=== PATIENT | female | born 1940 | race Caucasian/White ===

== ENCOUNTER 2017-06-15 07:00 | Inpatient (IN) | payer OTHER, MEDICARE ==
[2017-06-11 13:11] VITALS: BMI 23.8
[2017-06-15] MEDS ORDERED: DESFLURANE GAS 240 ML BOTTLE IH ONE (07:27)
[2017-06-15] MEDS ORDERED: BUPIVACAINE HCL/PF 0.5% (5MG/ML) 10 ML VIAL ONE (07:39)
[2017-06-15] MEDS ORDERED: LIDOCAINE HCL 1%, 10 MG/ML (20ML VIAL) ONE (07:39)
[2017-06-15] MEDS ORDERED: LIDOCAINE 1%/EPI 1:100000 (20 ML MULTI DOSE VIAL) ONE ×2 (08:18→08:25)
[2017-06-15] MEDS ORDERED: ROCURONIUM BROMIDE 50 MG/5 ML VIAL ONE ×2 (08:24→09:55)
[2017-06-15] MEDS ORDERED: PROPOFOL 20 ML ONE (08:24)
[2017-06-15] MEDS ORDERED: LIDOCAINE HCL/PF 2% SDV 5ML VIAL ONE (08:24)
[2017-06-15] MEDS ORDERED: BUPIVACAINE HCL/PF 0.25% (2.5MG/ML) 10 ML VIAL ONE ×2 (08:25→08:36)
[2017-06-15] MEDS ORDERED: MIDAZOLAM HCL 2 MG/2 ML SINGLE DOSE VIAL ONE (08:29)
[2017-06-15] MEDS ORDERED: ceFAZolin SODIUM 1 GM VIAL IVPB ONE (09:34)
[2017-06-15] MEDS ORDERED: HEPARIN NA (PORCINE) 5,000 UNITS/ML 1ML VIAL ONE (09:48)
[2017-06-15] MEDS ORDERED: HEPARIN NA (PORCINE) 5,000 UNITS/ML 1ML VIAL SQ ONE (09:51)
[2017-06-15] MEDS ORDERED: LIDOCAINE 1%/EPI 1:100000 (50 ML MULTI DOSE VIAL) INF ONE (09:53)
[2017-06-15] MEDS ORDERED: BUPIVACAINE HCL/PF 0.25% (2.5MG/ML) 10 ML VIAL IJ ONE (09:53)
[2017-06-15] MEDS ORDERED: ONDANSETRON 4 MG/2 ML VIAL IVPUSH PRN ×2 (10:11→14:01)
[2017-06-15] MEDS ORDERED: PROMETHAZINE HCL 25 MG/1 ML VIAL IVPUSH PRN (10:11)
[2017-06-15] MEDS ORDERED: LACTATED RINGERS SOLUTION 1,000 ML IV SCH ×2 (10:15→14:15)
[2017-06-15] MEDS ORDERED: NEOSTIGMINE METHYLSULFATE 0.5 MG/ML - 10 ML MDV ONE (11:30)
[2017-06-15] MEDS ORDERED: GLYCOPYRROLATE 0.2 MG/1 ML VIAL ONE ×2 (11:30)
[2017-06-15] MEDS ORDERED: ePHEDrine SULFATE 50 MG/1 ML AMPULE ONE (11:45)
--- NOTE | 2017-06-15 11:57 | OP ---
Operative Note - Note: Operative Date: 06/15/17 Pre-Operative Diagnosis: Lung nodule Operation: Bronchoscopy, VATS, extensive pneumolysis, right upper lobe wedge, mediastinal lymph node sampling Findings: Bronchoscopy: no obvious airway lesions; VATS: extensive adhesions of all lobes to chest wall and mediastinum Surgeon: Sly Chambers Plate Hanger: Edwar Nguyen (Cosurgeon) Anesthesiologist/AMPOULE EXAMINER: Teo Deras Anesthesia: General Specimens Removed: right upper lobe, right upper lobe margin, right level 4 lymph node Estimated Blood Loss (mls): 100 Drains & Tubes with Location: right chest tube
[2017-06-15] MEDS ORDERED: SENNOSIDES 8.6MG TABLET (FP) PO PRN (12:01)
[2017-06-15] MEDS: IPRATROPIUM BR 0.02% 0.5 MG/2.5 ML VIAL.NEB. NEB SCH ×5 (12:10→21:50)
[2017-06-15] MEDS ORDERED: ELECTROLYTE-148 SOLN 1,000 ML IV SCH (12:15)
[2017-06-15] MEDS ORDERED: FENTANYL/BUPIVACAINE/NS/PF - PCEA - 50 ML DISP.SYRIN EP ONE (12:48)
[2017-06-15] MEDS: FENTANYL/BUPIVACAINE/NS/PF - PCEA - 50 ML DISP.SYRIN EP SCH ×3 (13:00→22:39)
[2017-06-15 13:40] LABS: HEMATOCRIT 35.7 % (32.4-45.2); MCH 33.3 pg (25.7-33.7); MCHC 33.6 g/dl (32.0-36.0); MEAN CELL VOLUME 99.1 fl (80-96); MEAN PLT VOLUME 8.9 fl (7.5-11.1); PLATELET COUNT 148 K/MM3 (134-434); RDW 16.9 % (11.6-15.6); WHITE BLOOD COUNT 11.8 K/mm3 (4.0-10.0)
[2017-06-15 13:53] LABS: INR 1.06 (0.82-1.09)
[2017-06-15 13:55] LABS: ACTIVATED PTT 27.1 SECONDS (26.9-34.4)
[2017-06-15] MEDS ORDERED: oxyCODONE HCL 5 MG TABLET PO PRN (14:01)
[2017-06-15] MEDS ORDERED: PROMETHAZINE HCL 25 MG/1 ML VIAL IVPB PRN (14:01)
[2017-06-15 14:09] LABS: ANION GAP 10 (8-16); BLOOD UREA NITROGEN 22 mg/dL (7-18); CALCIUM 8.5 mg/dL (8.5-10.1); CHLORIDE 106 mmol/L (98-107); CO2 26 mmol/L (21-32); CREATININE 0.6 mg/dL (0.55-1.02); GLUCOSE,RANDOM 116 mg/dL (74-106); POTASSIUM 3.7 mmol/L (3.5-5.1); SODIUM 142 mmol/L (136-145)
--- NOTE | 2017-06-15 15:29 | HP ---
CHIEF COMPLAINT: Procedure done 06/15/2017: bronchoscopy, VATS with extensive pneumolysis, right upper lobe wedge, mediastinal lymph node sampling PCP: Dr. Chambers, thoracic surgery HISTORY OF PRESENT ILLNESS: Patient is a 77 year old female with a significant past medical history of autoimmune thyroiiditis, osteoarthritis, essential (primary) hypertension, rheumatoid arthritis and radha danlos syndrome. Patient is s/p bronchoscopy, VATS with extensive pneumolysis, right upper lobe wedge, mediastinal lymph node sampling today with Dr. Chambers. Patient is being monitored in the ICU post-op. ER course was notable for: (1) Chest tube with 200cc sero sang drainage (2) s/p bronchoscopy, VATS with RUL wedge (3) chest xray: small right apical pneumothorax, right chest tube with tip projecting over the apex. Right upper lung surgial suture with solid nodular opacity. Recent Travel: PAST MEDICAL HISTORY: autoimmune thyroiiditis, osteoarthritis, essential ( primary) hypertension and rheumatoid arthritis. PAST SURGICAL HISTORY: bronchoscopy, VATS with extensive pneumolysis, right upper lobe wedge, mediastinal lymph node sampling Social History: Smoking: former smoker Alcohol: denies Drugs: denies Family History: Allergies codeine Allergy (Verified 06/15/17 07:34) Rash seasonal Allergy (Uncoded 06/15/17 07:34) HOME MEDICATIONS: Home Medications Medication Instructions Recorded Folic Acid 1 mg PO DAILY 04/03/15 Levothyroxine [Synthroid -] 0.125 mcg PO DAILY 04/03/15 Methotrexate Sodium [Methotrexate] 22.5 mg PO WEEKLY 04/03/15 Naproxen Sodium [Naproxen Sodium 500 mg PO PRN PRN 04/03/15 ER] Sulfasalazine [Azulfidine] 1,000 mg PO BID 04/03/15 Amitriptyline HCl 25 mg PO PRN PRN 06/11/17 Lisinopril/Hydrochlorothiazide 1 each PO DAILY 06/11/17 [Lisinopril-Hctz 20-12.5 mg Tab] Multivitamin [One Daily] 1 each PO DAILY 06/11/17 PHYSICAL EXAMINATION Vital Signs - 24 hr 06/15/17 06/15/17 06/15/17 07:31 07:32 12:16 Temperature 97.8 F Pulse Rate 78 77 Respiratory 20 17 Rate Blood Pressure 142/63 136/59 O2 Sat by Pulse 93 L 100 Oximetry (%) GENERAL: Awake, alert, and fully oriented, in no acute distress. HEAD: Normal with no signs of trauma. EYES: Pupils equal, round and reactive to light, extraocular movements intact, sclera anicteric, conjunctiva clear. No lid lag. EARS, NOSE, THROAT: Ears normal, nares patent, oropharynx clear without exudates. Moist mucous membranes. NECK: Normal range of motion, supple without lymphadenopathy, JVD, or masses. LUNGS: anterior breath sounds clear to auscultation, right pig tail with chest tube s/p VATS procedure HEART: Regular rate and rhythm on panel monitor ABDOMEN: Soft, nontender, not distended, normoactive bowel sounds, MUSCULOSKELETAL: Normal range of motion at all joints. No bony deformities or tenderness. UPPER EXTREMITIES: No peripheral edema. LOWER EXTREMITIES: No peripheral edema. NEUROLOGICAL: Normal speech. Gait not observed PSYCHIATRIC: Cooperative. Good eye contact. Appropriate mood and affect. SKIN: Right pig tail to chest tube s/p VATS procedure Laboratory Results - last 24 hr 06/15/17 06/15/17 06/15/17 07:14 13:15 13:15 WBC 11.8 H D RBC 3.60 Hgb 12.0 Hct 35.7 MCV 99.1 H MCH 33.3 MCHC 33.6 RDW 16.9 H Plt Count 148 MPV 8.9 PT with INR 12.00 H INR 1.06 PTT (Actin FS) 27.1 Sodium Potassium Chloride Carbon Dioxide Anion Gap BUN Creatinine Random Glucose Calcium Blood Type O POSITIVE Antibody Screen Negative 06/15/17 13:15 WBC RBC Hgb Hct MCV MCH MCHC RDW Plt Count MPV PT with INR INR PTT (Actin FS) Sodium 142 Potassium 3.7 Chloride 106 Carbon Dioxide 26 Anion Gap 10 BUN 22 H Creatinine 0.6 Random Glucose 116 H Calcium 8.5 Blood Type Antibody Screen ASSESSMENT/PLAN: Patient is a 77 year old female with a significant past medical history of autoimmune thyroiiditis, osteoarthritis, essential (primary) hypertension, rheumatoid arthritis, radha danlos syndrome, former smoker. Patient is s/p bronchoscopy, VATS with extensive pneumolysis, right upper lobe wedge, mediastinal lymph node sampling today with Dr. Chambers. Patient is being monitored in the ICU post-op. Pulmonary: s/p bronchoscopy/VATS on 06/15/2017 Extensive adhesions lysed to maximize lung exapnsion Right upper lobe wedge Monitor out put on chest tube Monitor respiratory status Allbuterol prn On supplemental oxygen @ 2-3 liters Cardiology Hypertension, chronic On Lisinopril PO, on hold since NPO Cardiac monitoring Endocrine Rheumatoid arthritis On Methotraxtate Hypothyroidism On Syntrhoid daily to be converted to IV until swallow eval Vocal cord paralysis For epeech/ swallow evaluation NPO F.E.N. Fluids: NS @ 42cc/hr Electrolytes: monitor with a.m labs Nutrition: NPO pending swallow eval Prophylaxis: DVT: SCDs GI: Pepcid Disposition: full code. Visit type - Emergency Visit Emergency Visit: No - New Patient This patient is new to me today: Yes Date on this admission: 06/16/17 - Critical Care Critical Care patient: Yes Total Critical Care Time (in minutes): 60 Critical Care Statement: The care of this patient involved high complexity decision making to prevent further life threatening deterioration of the patient 's condition and/or to evaluate & treat vital organ system(s) failure or risk of failure. Hospitalist Screening - Colonoscopy Questionnaire Colonoscopy Questionnaire: Colonoscopy Questionnaire - Patient: 50 - 75 years old and never had a screening colonoscopy: Unknown History of colon or rectal polyps, or CA: Unknown History of IBD, Crohn's disease or UC: Unknown History of abdominal radiation therapy as a child: Unknown - Relative: 1 with colon or rectal CA, or polyps at age 60 or younger: Unknown Colon or rectal CA diagnosed at age 45 or younger: Unknown Multiple relatives with colon or rectal CA: Unknown - Outcome: Screening Result: Negative Screen
--- NOTE | 2017-06-15 15:52 | OPR ---
Patient Name: Loretta Rosa MR#: [id number] Procedure Date: 06/15/17 Preoperative Diagnosis: Lung nodule Postoperative Diagnosis: Lung cancer. Procedure: 1. Flexible Bronchoscopy; 2. Right thoracoscopy, pneumolysis, wedge resection; 3. Mediastinal lymph node sampling; Indication: Lung cancer; Surgeon(s): Sly Chambers MD Cosurgeon: Edwar Nguyen MD Cafe Lead Surgeon: Patient Name: Loretta Rosa MR#: [id number] Procedure Date: 06/15/17 Preoperative Diagnosis: Lung nodule Postoperative Diagnosis: Lung cancer. Procedure: 1. Flexible Bronchoscopy; 2. Right thoracoscopy, pneumolysis, wedge resection; 3. Mediastinal lymph node sampling; Indication: Lung cancer; Surgeon(s): Sly Chambers MD Cosurgeon: Edwar Nguyen MD Cafe Lead Surgeon: Anesthesia: General endotracheal with double-lumen tube; Findings: Bronchoscopy: small airway; difficult to place double-lumen in left main but accomplished; no obvious airway lesions. Thoracoscopy: significant adhesions from all lobes to mediastinum and chest wall and diaphragm; frozen section consistent with [id number] lung cancer; Specimens Sent: 1. RUL wedge 2. RUL wedge final margin Complications: none Drains / Tubes / Catheters: na Hardware / Implants: na Blood / Fluid Losses: 100cc Post-Operative Condition: Stable. Indications: This patient is a 77 year-old female forer smoker with a PET-avid right upper lobe nodule referred from Dr. Santiago for resection. Of note, she also had a newly diagnosed left vocal cord paralysis of unknown etiology. Risks , benefits, and alternatives of a lung resection were discussed with the patient. All questions were addressed and answered and she agreed to surgery. Details of Procedure: The patient was brought into the operating room. She was placed supine on the table, sedated, and intubated with a double-lumen tube. Because of her small stature (less than 5 feet tall), intubation was done over the bronchoscope. Using the pediatric bronchoscope, we investigated the airway and there were no obvious lesions. A shin catheter was also placed. We then placed the patient in the left lateral decubitus position. The lung was collapsed and the patient was prepared and draped. We made three VATS incisions and surveyed the pleura. There were extensive adhesions. We lysed the adhesions of the upper lobe to the chest wall and the middle lobe to the mediastinum so that we could identify the nodule and resect it with a good margin. We then identified the nodule and performed a large deep wedge resection with a grossly negative margin. We then continued lysing adhesions to maximize lung expansion since more than half of the upper lobe was taken. When the frozen section results were reported as positive for cancer, we then sampled the level 4 space. Next we obtained hemostasis and placed a chest tube. The lung was expanded. All wounds were closed. Sterile dressings were placed. She was awakened and extubated and tolerated the procedure well. Anesthesia: General endotracheal with double-lumen tube; Findings: Bronchoscopy: small airway; difficult to place double-lumen in left main but accomplished; no obvious airway lesions. Thoracoscopy: significant adhesions from all lobes to mediastinum and chest wall and diaphragm; frozen section consistent with [id number] lung cancer; Specimens Sent: 1. RUL wedge 2. RUL wedge final margin Complications: none Drains / Tubes / Catheters: na Hardware / Implants: na Blood / Fluid Losses: 100cc Post-Operative Condition: Stable. Indications: This patient is a 77 year-old female forer smoker with a PET-avid right upper lobe nodule referred from Dr. Santiago for resection. Of note, she also had a newly diagnosed left vocal cord paralysis of unknown etiology. Risks , benefits, and alternatives of a lung resection were discussed with the patient. All questions were addressed and answered and she agreed to surgery. Details of Procedure: The patient was brought into the operating room. She was placed supine on the table, sedated, and intubated with a double-lumen tube. Because of her small stature (less than 5 feet tall), intubation was done over the bronchoscope. Using the pediatric bronchoscope, we investigated the airway and there were no obvious lesions. A shin catheter was also placed. We then placed the patient in the left lateral decubitus position. The lung was collapsed and the patient was prepared and draped. We made three VATS incisions and surveyed the pleura. There were extensive adhesions. We lysed the adhesions of the upper lobe to the chest wall and the middle lobe to the mediastinum so that we could identify the nodule and resect it with a good margin. We then identified the nodule and performed a large deep wedge resection with a grossly negative margin. We then continued lysing adhesions to maximize lung expansion since more than half of the upper lobe was taken. When the frozen section results were reported as positive for cancer, we then sampled the level 4 space. Next we obtained hemostasis and placed a chest tube. The lung was expanded. All wounds were closed. Sterile dressings were placed. She was awakened and extubated and tolerated the procedure well. Dr. Nguyen was present as a cosurgeon for the entire procedure due to the complexity of the procedure and the lack of available appropriate help.
[2017-06-15] MEDS ORDERED: MORPHINE SULFATE 10 MG/1 ML *VIAL IVPUSH ONE (16:03)
[2017-06-15] MEDS ORDERED: ALBUTEROL SO4 2.5/IPRATROPIUM 0.5 INH SOL 3 ML VIAL.NEB. NEB PRN (16:07)
--- NOTE | 2017-06-15 16:08 | CONSULT ---
Consultation: REQUESTING PROVIDER: CONSULT REQUEST: We have been asked to medically evaluate this patient s/p Right upper lobe wedge resection. HISTORY OF PRESENT ILLNESS: 77F with PMH of tobacco (25 pack years at 1 ppd, quit 25 yrs ago), Lorenza Danlos Syndrome, hyperthyroidism, htn, rheumatoid arthritis, presents s/p bronchoscopy/VATS/extensive pneumolysis/Right upper lobe wedge resection/ mediastinal lymph node sampling by Dr. Chambers. Pt found to have a PET-avid Right upper lobe nodule and was referred by Dr. Santiago for resection. Extensive adhesions were lysed during the procedure (from upper lobe to chest wall, and from middle lobe to mediastinum) to maximize lung expansion. More than half Right upper lobe was removed. Pt tolerated procedure well. Pt also has newly diagnosed Left vocal cord paralysis of unknown etiology. REVIEW OF SYSTEMS: CONSTITUTIONAL: Absent: fever, chills, diaphoresis, generalized weakness, malaise HEENT: Absent: rhinorrhea, nasal congestion, throat pain, ear pain, eye pain, visual changes CARDIOVASCULAR: Absent: chest pain, palpitations, irregular heart rate, lightheadedness, peripheral edema RESPIRATORY: Absent: cough, shortness of breath, wheezing, stridor, hemoptysis GASTROINTESTINAL: Absent: abdominal pain, abdominal distension, nausea, vomiting, diarrhea, constipation GENITOURINARY: Absent: dysuria, frequency, urgency, hesitancy, hematuria MUSCULOSKELETAL: Right shoulder pain Absent: myalgia, arthralgia, joint swelling, back pain, neck pain SKIN: Absent: rash, itching, pallor HEMATOLOGIC/IMMUNOLOGIC: easy bruising 2/2 Lorenza Danlos Syndrome Absent: easy bleeding NEUROLOGIC: Absent: headache, focal weakness or paresthesias, dizziness PSYCHIATRIC: Absent: anxiety, depression, suicidal or homicidal ideation, hallucinations. PHYSICAL EXAMINATION Vital Signs - 24 hr 06/15/17 06/15/17 06/15/17 07:31 07:32 12:16 Temperature 97.8 F Pulse Rate 78 77 Respiratory 20 17 Rate Blood Pressure 142/63 136/59 O2 Sat by Pulse 93 L 100 Oximetry (%) 06/15/17 15:00 Temperature 99.2 F Pulse Rate 89 Respiratory 18 Rate Blood Pressure 149/63 O2 Sat by Pulse Oximetry (%) GENERAL: Awake, alert, and fully oriented, in no acute distress. HEAD: Normal with no signs of trauma. EARS, NOSE, THROAT: Moist mucous membranes. NECK: Supple without lymphadenopathy, JVD, or masses. LUNGS: Breath sounds equal, clear to auscultation bilaterally. No wheezes, and no crackles. No accessory muscle use. Right Chest Tube draining 200ml since surgery, dressing CDI. HEART: Regular rate and rhythm, normal S1 and S2 without murmur, rub or gallop. ABDOMEN: Soft, nontender, not distended, no guarding. UPPER EXTREMITIES: Warm, well-perfused. No cyanosis. No clubbing. Cap refill <2 seconds. No peripheral edema. LOWER EXTREMITIES: Warm, well-perfused. No calf tenderness. No peripheral edema. NEUROLOGICAL: Cranial nerves II-XII grossly intact. No facial droop. Normal speech. PSYCHIATRIC: Cooperative. Good eye contact. Appropriate mood and affect. SKIN: Warm, dry, normal turgor, no rashes or lesions noted. Laboratory Results - last 24 hr 06/15/17 06/15/17 06/15/17 07:14 13:15 13:15 WBC 11.8 H D RBC 3.60 Hgb 12.0 Hct 35.7 MCV 99.1 H MCH 33.3 MCHC 33.6 RDW 16.9 H Plt Count 148 MPV 8.9 PT with INR 12.00 H INR 1.06 PTT (Actin FS) 27.1 Sodium Potassium Chloride Carbon Dioxide Anion Gap BUN Creatinine Random Glucose Calcium Blood Type O POSITIVE Antibody Screen Negative 06/15/17 13:15 WBC RBC Hgb Hct MCV MCH MCHC RDW Plt Count MPV PT with INR INR PTT (Actin FS) Sodium 142 Potassium 3.7 Chloride 106 Carbon Dioxide 26 Anion Gap 10 BUN 22 H Creatinine 0.6 Random Glucose 116 H Calcium 8.5 Blood Type Antibody Screen Active Medications Generic Name Dose Route Start Last Admin Trade Name Freq PRN Reason Stop Dose Admin Fentanyl 50 mcg 06/15/17 10:11 Sublimaze Injection - IVPUSH [id number] PRN PAIN-PACU ORDER X 4 DOSES ONLY Fentanyl 50 mcg 06/15/17 14:01 Sublimaze Injection - IVPUSH [id number] PRN PAIN-PACU ORDER X 4 DOSES ONLY Fentanyl/Bupivacaine/Sodium Chlor 50 ml 06/15/17 10:15 06/15/17 13:00 Bupivicaine 0.125%/Fentanyl 2mcg/Ml Pcea - EP 50 ml ASDIR NICKOLAS Administration Protocol Heparin Sodium (Porcine) 5,000 unit 06/16/17 10:00 Heparin - SQ BID NICKOLAS Lactated Ringer's 1,000 mls @ 75 mls/hr 06/15/17 10:15 Lactated Ringers Solution IV ASDIR NICKOLAS Parenteral Electrolytes 1,000 mls @ 42 mls/hr 06/15/17 12:15 06/15/17 13:00 Plasma-Lyte 148 - IV 80 mls ASDIR NICKOLAS Administration Lactated Ringer's 1,000 mls @ 75 mls/hr 06/15/17 14:15 Lactated Ringers Solution IV ASDIR NICKOLAS Ipratropium [place] 1 amp 06/15/17 12:00 Atrovent 0.02% Nebulizer - NEB 06/22/17 08:01 RQID NICKOLAS Ondansetron HCl 4 mg 06/15/17 10:11 Zofran Injection IVPUSH Q6H PRN NAUSEA AND/OR VOMITING Ondansetron HCl 4 mg 06/15/17 14:01 Zofran Injection IVPUSH Q6H PRN NAUSEA AND/OR VOMITING Oxycodone HCl 10 mg 06/15/17 14:01 Roxicodone - PO 06/16/17 14:00 Q4H PRN PAIN LEVEL 6-10 Promethazine HCl 12.5 mg 06/15/17 10:11 Phenergan Injection - IVPUSH Q6H PRN NAUSEA-FOR RESCUE AFTER 15 MIN Promethazine HCl 12.5 mg 06/15/17 14:01 Phenergan Injection - IVPB Q6H PRN NAUSEA-FOR RESCUE AFTER 15 MIN Senna 2 tab 06/15/17 12:01 Senna - PO HS PRN CONSTIPATION IMAGIN06/15/17 CXR -> small Right apical PTX. Right chest tube tip projecting over apex. Right upper lung surgical sutures noted. ASSESSMENT/PLAN: 77F with PMH of Lorenza Danlos Syndrome, hyperthyroidism, htn, rheumatoid arthritis, presents s/p bronchoscopy/VATS/extensive pneumolysis/Right upper lobe wedge resection/mediastinal lymph node sampling by Dr. Chambers. # Right upper lobe nodule - s/p resection by Dr. Chambers on 06/15/17 - monitor Chest Tube drainage - pain control - Nebs prn - O2 prn - incentive spirometry # hyperthyroidism - Synthroid IVpush (half regular dose 2/2 IV vs po administration) # htn - hold home meds for now - continue to monitor # FEN - Fluids: LR 75 ml/hr - Electrolytes: wnl, continue to monitor - Nutrition: npo, pending Speech Swallow Eval # Prophylaxis - DVT ppx with Heparin BID - GI ppx with Pepcid IVPB BID Dispo: We will continue to follow the patient. Thank you for this consultative opportunity. Visit type - Emergency Visit Emergency Visit: Yes ED Registration Date: 06/15/17 Care time: The patient presented to the Emergency Department on the above date and was hospitalized for further evaluation of their emergent condition. - New Patient This patient is new to me today: Yes Date on this admission: 06/15/17 - Critical Care Critical Care patient: Yes Total Critical Care Time (in minutes): 45 Critical Care Statement: The care of this patient involved high complexity decision making to prevent further life threatening deterioration of the patient 's condition and/or to evaluate & treat vital organ system(s) failure or risk of failure.
[2017-06-15] MEDS: LEVOTHYROXINE SODIUM 100 MCG VIAL IVPUSH SCH (17:14)
--- NOTE | 2017-06-15 21:07 | CONSULT ---
Consult Consult Specialty:: Pulmonary/ Critical Care Referred by:: Jeri Chambers Reason for Consultation:: s/p bronch, VATS, extensive pneumolysis, RUL wedge resection and mediastinal lymph node sampling - History of Present Illness Chief Complaint: post op monitoring History of Present Illness: 77 y/o woman with history of HTN, autoimmune thyroiditis, osteoarthritis, rheumatoid arthritis, and lorenza danlos syndrome admitted to ICU for post-op monitoring. Pt was found to have PET-avid RUL nodule and was referred by Dr. Santiago for resection. She underwent bronch, VATS, extensive pneumolysis, RUL wedge resection and mediastinal lymph node sampling by Dr. Chambers on 06/15. Bronch showed no obvious airway lesions and VATS notable for extensive adhesions which were lysed, more than half of RUL moved, chest tube placed with 200cc sero-sanguinous drainage. Of note pt found to have newly diagnosed left vocal cord paralysis of unknown etiology. CXR post-op with small right apical pneumothorax with chest tube in place. Pt with relative hypotension post-op, responsive to IVF, continuous rate increased. Pain meds decreased slightly with addition of acetaminophen. CBC showed hgb 12-> 9.9 without dilution of other cell lines, though without excessive blood loss via chest tube. Will consider blood transfusion if persistently hypotensive. Active Medications Albuterol/Ipratropium (Duoneb -) 1 amp NEB Q4H PRN PRN Reason: SHORTNESS OF BREATH Fentanyl (Sublimaze Injection -) 50 mcg IVPUSH [id number] PRN PRN Reason: PAIN-PACU ORDER X 4 DOSES ONLY Fentanyl/Bupivacaine/Sodium Chlor (Bupivicaine 0.125%/Fentanyl 2mcg/Ml Pcea -) 50 ml EP ASDIR NICKOLAS PRN Reason: Protocol Last Admin: 06/15/17 19:00 Dose: 50 ml Heparin Sodium (Porcine) (Heparin -) 5,000 unit SQ BID NICKOLAS Lactated Ringer's (Lactated Ringers Solution) 1,000 mls @ 75 mls/hr IV ASDIR NICKOLAS Last Admin: 06/15/17 16:45 Dose: 75 mls/hr Famotidine/Sodium Chloride (Pepcid 20 Mg Premixed Ivpb -) 20 mg in 50 mls @ 100 mls/hr IVPB BID NICKOLAS Ipratropium [place] (Atrovent 0.02% Nebulizer -) 1 amp NEB RQID [facility] Stop: 06/22/17 08:01 Last Admin: 06/15/17 16:57 Dose: 1 amp Levothyroxine Sodium (Synthroid Injection -) 62.5 mcg IVPUSH DAILY@0700 [facility] Last Admin: 06/15/17 17:14 Dose: 62.5 mcg Ondansetron HCl (Zofran Injection) 4 mg IVPUSH Q6H PRN PRN Reason: NAUSEA AND/OR VOMITING Oxycodone HCl (Roxicodone -) 10 mg PO Q4H PRN PRN Reason: PAIN LEVEL 6-10 Stop: 06/16/17 14:00 Promethazine HCl (Phenergan Injection -) 12.5 mg IVPB Q6H PRN PRN Reason: NAUSEA-FOR RESCUE AFTER 15 MIN Senna (Senna -) 2 tab PO HS PRN PRN Reason: CONSTIPATION - History Source History Provided By: Patient, Medical Record - Past Medical History Cardio/Vascular: Yes: HTN Musculoskeletal: Yes: Osteoarthritis, Other (lorenza danlos syndrome) Rheumatology: Yes: Rheumatoid Arthritis Endocrine: Yes: Hypothyroidism - Alcohol/Substance Use Hx Alcohol Use: No - Smoking History Smoking history: Former smoker Have you smoked in the past 12 months: No If you are a former smoker, when did you quit?: 52YRS OLD Home Medications - Allergies Allergies/Adverse Reactions: Allergies Allergy/AdvReac Type Severity Reaction Status Date / Time codeine Allergy Rash Verified 06/15/17 07:34 seasonal Allergy Uncoded 06/15/17 07:34 - Home Medications Home Medications: Ambulatory Orders Folic Acid 1 mg PO DAILY 04/03/15 Levothyroxine [Synthroid -] 0.125 mcg PO DAILY 04/03/15 Methotrexate Sodium [Methotrexate] 22.5 mg PO WEEKLY 04/03/15 Naproxen Sodium [Naproxen Sodium ER] 500 mg PO PRN PRN 04/03/15 Sulfasalazine [Azulfidine] 1,000 mg PO BID 04/03/15 Amitriptyline HCl 25 mg PO PRN PRN 06/11/17 Lisinopril/Hydrochlorothiazide [Lisinopril-Hctz 20-12.5 mg Tab] 1 each PO DAILY 06/11/17 Multivitamin [One Daily] 1 each PO DAILY 06/11/17 Review of Systems - Review of Systems Respiratory: reports: Cough. denies: SOB Gastrointestinal: denies: Abdominal Pain Integumentary: reports: Bruising Physical Exam Vital Signs: Vital Signs Temperature 98.8 F 06/15/17 20:00 Pulse Rate 83 06/15/17 20:23 Respiratory Rate 15 06/15/17 20:23 Blood Pressure 102/45 06/15/17 20:23 O2 Sat by Pulse Oximetry (%) 99 06/15/17 20:23 Constitutional: Yes: No Distress Eyes: Yes: PERRL HENT: Yes: Other (ecchymosis on R lateral portion of tongue) Cardiovascular: Yes: Regular Rate and Rhythm, S1, S2. No: Gallop, Murmur, Rub Respiratory: Yes: CTA Bilaterally, Other (weak cough, chest tube no air leak). No: Accessory Muscle Use Gastrointestinal: Yes: Normal Bowel Sounds, Soft. No: Distention, Tenderness Extremities: Yes: WNL Edema: No Peripheral Pulses WNL: Yes Integumentary: Yes: WNL Wound/Incision: Yes: Other (chest tube with sero-sanguinous drainage) Neurological: Yes: WNL, Cran Nerves II-XII Intact ...Motor Strength: WNL Labs: CBC, BMP 06/15/17 13:15 06/15/17 13:15 Imaging - Results Chest X-ray: Report Reviewed, Image Reviewed Problem List - Problems (1) Hypertension Code(s): I10 - ESSENTIAL (PRIMARY) HYPERTENSION (2) Autoimmune thyroiditis Code(s): E06.3 - AUTOIMMUNE THYROIDITIS (3) Osteoarthritis Code(s): M19.90 - UNSPECIFIED OSTEOARTHRITIS, UNSPECIFIED SITE (4) Rheumatoid arthritis Code(s): M06.9 - RHEUMATOID ARTHRITIS, UNSPECIFIED (5) Lorenza-Danlos syndrome Code(s): Q79.6 - LORENZA-DANLOS SYNDROME (6) Lung nodule Code(s): R91.1 - SOLITARY PULMONARY NODULE Assessment/Plan Assessment: 77 y/o woman with HTN, autoimmune thyroiditis, osteoarthritis, rheumatoid arthritis, and lorenza danlos syndrome admitted to ICU for monitoring post bronch, VATS, extensive pneumolysis, RUL wedge resection and mediasteinal lymph node sampling. Plan: -monitor respiratory status - O2 and nebs as needed -incentive spirometer -chest tube to suction - monitor output -CXR as indicated for monitoring of pneumothorax -continue home synthroid -continue to hold antihypertensives - resume as indicated -pain control -IVF -NPO, advance as appropriate post speech and swallow -PPX: SQ heparin Dispo: FULL Lili Champagne ACNP CCT: 35 mins
[2017-06-15] MEDS: FAMOTIDINE 20 MG/50 ML IVPB 20 MG/50 ML MG IVPB SCH (21:17)
[2017-06-15] MEDS ORDERED: FAMOTIDINE IV 20 MG/12 ML VIAL IVPUSH SCH (22:00)
[2017-06-15] MEDS ORDERED: SODIUM CHLORIDE 500 ML IV STA (22:12)
[2017-06-15] MEDS: LACTATED RINGERS SOLUTION 1,000 ML IV SCH (22:17)
[2017-06-15] MEDS ORDERED: ACETAMINOPHEN 1000 MG/100 ML VIAL (NON FORMULARY) IVPB PRN (22:22)
[2017-06-15] MEDS: ACETAMINOPHEN 1000 MG/100 ML VIAL (NON FORMULARY) IVPB SCH (22:41)
[2017-06-15 23:23] LABS: BASO % 0.2 % (0-2.0); HEMATOCRIT 29.6 % (32.4-45.2); HEMOGLOBIN 9.9 GM/dL (10.7-15.3); LYMPH % 8.7 % (8-40); MCHC 33.3 g/dl (32.0-36.0); MEAN CELL VOLUME 98.9 fl (80-96); MONO % 7.1 % (3.8-10.2); PLATELET COUNT 158 K/MM3 (134-434); RBC 2.99 M/mm3 (3.60-5.2); RDW 16.6 % (11.6-15.6); WHITE BLOOD COUNT 10.4 K/mm3 (4.0-10.0)
[2017-06-16] MEDS ORDERED: SODIUM CHLORIDE 0.9% 500 ML INFUS.BAG IV ONE (00:07)
[2017-06-16] MEDS: FENTANYL/BUPIVACAINE/NS/PF - PCEA - 50 ML DISP.SYRIN EP SCH ×4 (02:30→19:26)
[2017-06-16] MEDS: ACETAMINOPHEN 1000 MG/100 ML VIAL (NON FORMULARY) IVPB SCH ×5 (04:00→21:32)
[2017-06-16 05:51] LABS: HEMOGLOBIN 8.6 GM/dL (10.7-15.3); MCH 33.1 pg (25.7-33.7); MCHC 33.2 g/dl (32.0-36.0); MEAN CELL VOLUME 99.8 fl (80-96); MEAN PLT VOLUME 9.1 fl (7.5-11.1); PLATELET COUNT 113 K/MM3 (134-434); RDW 16.9 % (11.6-15.6); WHITE BLOOD COUNT 7.5 K/mm3 (4.0-10.0)
[2017-06-16 06:21] LABS: CHLORIDE 107 mmol/L (98-107); POTASSIUM 3.8 mmol/L (3.5-5.1); SODIUM 143 mmol/L (136-145)
[2017-06-16 06:27] LABS: ANION GAP 9 (8-16); BLOOD UREA NITROGEN 22 mg/dL (7-18); CALCIUM 7.6 mg/dL (8.5-10.1); CO2 27 mmol/L (21-32); CREATININE 0.5 mg/dL (0.55-1.02); GLUCOSE,RANDOM 87 mg/dL (74-106); MAGNESIUM 1.9 mg/dL (1.8-2.4); PHOSPHOROUS 3.9 mg/dL (2.5-4.9)
[2017-06-16] MEDS: LEVOTHYROXINE SODIUM 100 MCG VIAL IVPUSH SCH (06:32)
[2017-06-16] MEDS: IPRATROPIUM BR 0.02% 0.5 MG/2.5 ML VIAL.NEB. NEB SCH ×4 (07:45→20:50)
[2017-06-16] MEDS ORDERED: KCL 10 MEQ IVPB 10 MEQ/100 ML INFUS.BAG IVPB SCH (08:00)
[2017-06-16] MEDS ORDERED: MAGNESIUM SULF 50% (8.12 MEQ/2 ML-1 GM VIAL) IVPB ONE (08:30)
--- NOTE | 2017-06-16 09:06 | PN ---
Physical Exam: SUBJECTIVE: Patient seen and examined Pt complaining of SOB, right-sided chest pain that is 6/10 and slightly improved compared to yesterday. She denies lightheadedness, n/v/d/c, and LE pain. OBJECTIVE: Vital Signs Period Temp Pulse Resp BP Sys/Valentino Pulse Ox Last 24 Hr 97.6 F-99.2 F 65-97 10-25 79-157/34-81 98-100 GENERAL: elderly female, awake, alert, and fully oriented, in no acute distress. HEENT: b/l miosis, L wandering eye, right-tongue ecchymosis LUNGS: right sided rhonchi/rales up to mid lung HEART: Regular rate and rhythm, S1, S2 without murmur, rub or gallop. chest tube on right side draining bloody fluid ABDOMEN: Soft, nontender, nondistended, normoactive bowel sounds, no guarding, no rebound, no hepatosplenomegaly, no masses. EXTREMITIES: 2+ pulses, warm, well-perfused, no edema. NEUROLOGICAL: Cranial nerves II through XII grossly intact. Normal speech, gait not observed. Laboratory Results - last 24 hr 06/15/17 06/15/17 06/15/17 07:14 13:15 13:15 WBC 11.8 H D RBC 3.60 Hgb 12.0 Hct 35.7 MCV 99.1 H MCH 33.3 MCHC 33.6 RDW 16.9 H Plt Count 148 MPV 8.9 Neutrophils % Lymphocytes % Monocytes % Eosinophils % Basophils % PT with INR 12.00 H INR 1.06 PTT (Actin FS) 27.1 Sodium Potassium Chloride Carbon Dioxide Anion Gap BUN Creatinine Random Glucose Calcium Phosphorus Magnesium Blood Type O POSITIVE Antibody Screen Negative Crossmatch See Detail 06/15/17 06/15/17 06/16/17 13:15 22:19 05:15 WBC 10.4 H 7.5 RBC 2.99 L 2.60 L Hgb 9.9 L D 8.6 L D Hct 29.6 L D 26.0 L MCV 98.9 H 99.8 H MCH 33.0 33.1 MCHC 33.3 33.2 RDW 16.6 H 16.9 H Plt Count 158 113 L D MPV 9.0 9.1 Neutrophils % 84.0 H D Lymphocytes % 8.7 D Monocytes % 7.1 Eosinophils % 0.0 D Basophils % 0.2 PT with INR INR PTT (Actin FS) Sodium 142 Potassium 3.7 Chloride 106 Carbon Dioxide 26 Anion Gap 10 BUN 22 H Creatinine 0.6 Random Glucose 116 H Calcium 8.5 Phosphorus Magnesium Blood Type Antibody Screen Crossmatch 06/16/17 05:15 WBC RBC Hgb Hct MCV MCH MCHC RDW Plt Count MPV Neutrophils % Lymphocytes % Monocytes % Eosinophils % Basophils % PT with INR INR PTT (Actin FS) Sodium 143 Potassium 3.8 Chloride 107 Carbon Dioxide 27 Anion Gap 9 BUN 22 H Creatinine 0.5 L Random Glucose 87 Calcium 7.6 L Phosphorus 3.9 Magnesium 1.9 Blood Type Antibody Screen Crossmatch Active Medications Generic Name Dose Route Start Last Admin Trade Name Freq PRN Reason Stop Dose Admin Acetaminophen 1,000 mg 06/15/17 22:30 06/16/17 04:00 Ofirmev Injection - IVPB 06/16/17 15:01 1,000 mg Q6H-IV NICKOLAS Administration Albuterol/Ipratropium 1 amp 06/15/17 16:07 Duoneb - NEB Q4H PRN SHORTNESS OF BREATH Fentanyl/Bupivacaine/Sodium Chlor 50 ml 06/15/17 22:25 06/16/17 02:30 Bupivicaine 0.125%/Fentanyl 2mcg/Ml Pcea - EP 50 ml ASDIR NICKOLAS Administration Protocol Heparin Sodium (Porcine) 5,000 unit 06/16/17 10:00 Heparin - SQ BID NICKOLAS Famotidine/Sodium Chloride 20 mg in 50 mls @ 100 mls/hr 06/15/17 22:00 21:17 Pepcid 20 Mg Premixed Ivpb - IVPB 100 mls/hr BID NICKOLAS Administration Lactated Ringer's 1,000 mls @ 100 mls/hr 06/15/17 22:43 06/15/17 22:17 Lactated Ringers Solution IV 100 mls/hr ASDIR NICKOLAS Administration Ipratropium [place] 1 amp 06/15/17 12:00 06/16/17 07:45 Atrovent 0.02% Nebulizer - NEB 06/22/17 08:01 1 amp RQID NICKOLAS Administration Levothyroxine Sodium 62.5 mcg 06/15/17 16:30 06/16/17 06:32 Synthroid Injection - IVPUSH 62.5 mcg DAILY@0700 NICKOLAS Administration Ondansetron HCl 4 mg 06/15/17 14:01 Zofran Injection IVPUSH Q6H PRN NAUSEA AND/OR VOMITING Oxycodone HCl 10 mg 06/15/17 14:01 Roxicodone - PO 06/16/17 14:00 Q4H PRN PAIN LEVEL 6-10 Promethazine HCl 12.5 mg 06/15/17 14:01 Phenergan Injection - IVPB Q6H PRN NAUSEA-FOR RESCUE AFTER 15 MIN Senna 2 tab 06/15/17 12:01 Senna - PO HS PRN CONSTIPATION ASSESSMENT/PLAN: 77F w/ hx of Lorenza Danlos Syndrome, hyperthyroidism, HTN, rheumatoid arthritis who presented s/p bronchoscopy/VATS/extensive pneumolysis/Right upper lobe wedge resection/mediastinal lymph node sampling by Dr. Chambers. #Pulm - Right upper lobe nodule: s/p bronchoscopy/VATS/extensive pneumolysis/Right upper lobe wedge resection/mediastinal lymph node sampling by Dr. Chambers on - f/u recs by Dr. Chambers - chest tube drainage: serosanginous, 140 yesterday, 60 today - pain control with APAP, oxycodone, and fentanyl/bupivicaine - Nebs prn - O2 prn - incentive spirometry # Endocrine - hypothyroidism, continue synthroid #Cardiovascular - hypotensive on LR @100, give 500cc bolus of NS - hold home HTN meds for now - continue to monitor - anemia, Hgb of 8.6, down from 9.9. trend CBC #ENT - vocal cord paralysis of unknown etiology - f/u S&S eval #Rheum - RA # FEN/ppx -LR @ 100 -electrolytes wnl -dysphagia puree -pepcid -heparin 5000 BID Case discussed with attending, Dr. Bedoya. -Jean Carlos Villegas MD PGY1 Visit type - Emergency Visit Emergency Visit: Yes ED Registration Date: 06/15/17 Care time: The patient presented to the Emergency Department on the above date and was hospitalized for further evaluation of their emergent condition. - New Patient This patient is new to me today: Yes Date on this admission: 06/16/17 - Critical Care Critical Care patient: Yes Total Critical Care Time (in minutes): 36 Critical Care Statement: The care of this patient involved high complexity decision making to prevent further life threatening deterioration of the patient 's condition and/or to evaluate & treat vital organ system(s) failure or risk of failure.
[2017-06-16] MEDS: FAMOTIDINE 20 MG/50 ML IVPB 20 MG/50 ML MG IVPB SCH ×2 (09:50→21:33)
[2017-06-16] MEDS ORDERED: HEPARIN NA (PORCINE) 5,000 UNITS/ML 1ML VIAL SQ SCH (10:00)
--- NOTE | 2017-06-16 10:13 | CONSULT ---
Admitting History and Physical - Primary Care Physician PCP: Julia Lofton - Admission History of Present Illness: 77 y/o woman with HTN, autoimmune thyroiditis, osteoarthritis, rheumatoid arthritis, and radha danlos syndrome admitted to ICU for monitoring post bronch , VATS, extensive pneumolysis, RUL wedge resection and mediasteinal lymph node sampling. Pt reports dx of Left vocal cord paralysis 3 months ago when seen by Dr. Conrad. This resulted in pulmonary w/u. Pt denies swallowing difficulty before admission, recently having a meatball wedge, thin liquids without difficulty. She reports significant odynophagia (8-9 ) since yesterday's Bronchoscopy. Voice was reported to be quite dysphonic yesterday, with improving vocal quality, but not back to recent baseline per pt. Pt is requesting a numbing spray for odynophagia, however, this is contraindicated due to suspected dysphagia. History Source: Patient Limitations to Obtaining History: No Limitations - Past Medical History Cardiovascular: Yes: HTN Musculoskeletal: Yes: Osteoarthritis, Other (radha danlos syndrome) Rheumatology: Yes: Rheumatoid Arthritis Endocrine: Yes: Hypothyroidism - Smoking History Smoking history: Former smoker Have you smoked in the past 12 months: No If you are a former smoker, when did you quit?: 52YRS OLD - Alcohol/Substance Use Hx Alcohol Use: No History - Admission Reason For Visit: LUNG NODULE - Diagnostics X-ray: Report Reviewed - General Mental Status: Alert and Oriented, Awake and Alert, Able to Follow Commands Attention: Intact Ability to Follow Directions: Excellent Head/Neck Control: WFL - Hearing Hearing: Functional Speech Evaluation - Communication Primary Language: GREEN[place] Communication: Yes: Within Normal Limits Oral Expression Ability: Yes: Mild Impairment - Speech Production Able to Make Needs Known: Yes: WNL Intelligibility: Yes: WNL - Speech Characteristics Voice Loudness: Normal Voice Pitch: Yes: Normal Voice Phonatory-based Quality: Yes: Strident, Dysphonia (mild) Speech Clarity: < 100% Nasal Resonance: Normal Articulation: Yes: Precise Rate of Speech: Intact - Language/Auditory Comprehension Follows: Yes: 2 Stage Simple Commands - Language/Verbal Expression Able to Respond to Simple Queries: Yes: WNL Able to Communicate Wants and Needs: Yes: WNL Functional Communication Status: Yes: WNL - Memory/Perception medical terminologist Memory: Yes: WNL Short Term Memory: Yes: WNL - Swallow Evaluation/Bedside Assessment Current Nutritional Intake: NPO Oral Secretions: Yes: WFL Dentition: Yes: Adequate Facial Symmetry at Rest: Symmetrical Facial Symmetry on Retraction: Symmetrical Facial Movement: Controlled Against Resistance Opening: Normal Against Resistance Closing: Normal Pucker Lips: Normal Smile: Normal Lingual Movement: Normal, Symmetric Lingual Speed of Movement: Normal Lingual Movement Strgth Against Opposition: Normal Lingual Movement Characteristics: Normal Lingual Comment: Bruised right side of tongue. Deep purple. Velopharyngeal Movement: Normal Laryngeal Movement: Able to Palpate Labial Seal: WFL Oral Prep Time: WFL A-P Transit: WFL Pocketing: None Timing of Swallow: WFL Coughing/Throat Clear: Yes ((+) 3 oz water test) Recommendations - Speech Evaluation, Impression/Plan Impression: Left VC paralysis, dx 3 months ago,without dysphagia.Recent Bronchoscopy with c/o odynpophagia, mild dysphonia (new),(+) 3 oz water test. Right tongue bruised. Vocal quality improves with head rotation to left, likely improving glottic closure. Suspect intermittent aspiration on liquids, which may be related to acute swelling, and will hopefully improve. - Dysphagia Impressions/Plan Swallowing Skills: Impaired Dysphagia Impressions: Ongoing Evaluation, Suspect Aspiration *Silent aspiration: cannot be R/O at bedside Dysphagia Treatment Plan: Small Bites, Chin Tuck/Down, Head Turn Left, 1/2 tsp. at a time, OOB for 1 h. after meals, Other (2 swallows per bite) Recommendations: Modified Barium Swallow - Recommendations Diet Consistency: Dysphagia Pureed Medication Administration: Crushed with applesauce Liquids: Honey Thick Supplement: Magic Cup
--- NOTE | 2017-06-16 10:58 | PN ---
Progress Note, BENCH CARPENTER - Note Progress Note: Waxing and waning. Alert this am. Not arousable at this time. Continue NPO for now.
--- NOTE | 2017-06-16 11:13 | PN ---
Teaching Attending Note Name of Resident: Jean Carlos Villegas ATTENDING PHYSICIAN STATEMENT I saw and evaluated the patient. I reviewed the resident's note and discussed the case with the resident. I agree with the resident's findings and plan as documented. SUBJECTIVE: Pt seen and examined in the ICU. s/p R VATS/pneumolysis/wedge resection/ mediastinal lymph node sampling. Pain controlled. Some throat discomfort. Frozen section positive for malignancy. OBJECTIVE: Last Vital Signs Temp Pulse Resp BP Pulse Ox 98.9 F 78 25 H 104/48 99 06/16/17 10:35 06/16/17 10:01 06/16/17 10:01 06/16/17 10:01 06/15/17 22:39 Intake & Output 06/13/17 06/14/17 06/15/17 06/16/17 22:59 23:59 23:59 23:59 Intake Total 2084 1400 Output Total 1020 260 Balance 1064 1140 Weight 50.802 kg 50.349 kg Gen: NAD at rest Heart: RRR Lung: scattered basilar rales Abd: soft, nontender Ext: no edema Chest tube: serosanguinous drainage, no air leak CBC, BMP 06/16/17 05:15 06/16/17 05:15 Active Medications Acetaminophen (Ofirmev Injection -) 1,000 mg IVPB Q6H-IV NICKOLAS Stop: 06/16/17 15:01 Last Admin: 06/16/17 09:04 Dose: 1,000 mg Albuterol/Ipratropium (Duoneb -) 1 amp NEB Q4H PRN PRN Reason: SHORTNESS OF BREATH Fentanyl/Bupivacaine/Sodium Chlor (Bupivicaine 0.125%/Fentanyl 2mcg/Ml Pcea -) 50 ml EP ASDIR NICKOLAS PRN Reason: Protocol Last Admin: 06/16/17 10:38 Dose: 50 ml Heparin Sodium (Porcine) (Heparin -) 5,000 unit SQ BID NICKOLAS Last Admin: 06/16/17 09:50 Dose: 5,000 unit Famotidine/Sodium Chloride (Pepcid 20 Mg Premixed Ivpb -) 20 mg in 50 mls @ 100 mls/hr IVPB BID [facility] Last Admin: 06/16/17 09:50 Dose: 100 mls/hr Lactated Ringer's (Lactated Ringers Solution) 1,000 mls @ 100 mls/hr IV ASDIR [facility] Last Admin: 06/15/17 22:17 Dose: 100 mls/hr Ipratropium [place] (Atrovent 0.02% Nebulizer -) 1 amp NEB RQID [facility] Stop: 06/22/17 08:01 Last Admin: 06/16/17 07:45 Dose: 1 amp Levothyroxine Sodium (Synthroid Injection -) 62.5 mcg IVPUSH DAILY@0700 [facility] Last Admin: 06/16/17 06:32 Dose: 62.5 mcg Ondansetron HCl (Zofran Injection) 4 mg IVPUSH Q6H PRN PRN Reason: NAUSEA AND/OR VOMITING Oxycodone HCl (Roxicodone -) 10 mg PO Q4H PRN PRN Reason: PAIN LEVEL 6-10 Stop: 06/16/17 14:00 Promethazine HCl (Phenergan Injection -) 12.5 mg IVPB Q6H PRN PRN Reason: NAUSEA-FOR RESCUE AFTER 15 MIN Senna (Senna -) 2 tab PO HS PRN PRN Reason: CONSTIPATION ASSESSMENT AND PLAN: Lung Nodule r/o Malignancy s/p R VATS/pneumolysis/wedge resection/mediastinal lymph node sampling Lorenza Danlos Syndrome h/o Autoimmune Thyroiditis Rheumatoid Arthritis HTN - pain control - incentive spirometry - f/u final pathology - inhaled bronchodilators - O2 as needed - monitor chest tube output - PO as tolerated - OOB to chair - DVT prophylaxis TN, autoimmune thyroiditis, osteoarthritis, rheumatoid arthritis, and lorenza danlos syndrome
[2017-06-16] MEDS ORDERED: SODIUM CHLORIDE 500 ML IV STA (11:24)
--- NOTE | 2017-06-16 15:31 | PN ---
Progress Note (short form) - Note Progress Note: Anesthesia postop note 77 y/o F s/p GA for right VATS, thoracic epidural for postop pain management, monitored in ICU POD#1, vss, alert and awake, pain well controlled, some difficulties swallowing , CT still in. Will continue epidural today, reasses patient tomorrow. No anesthesia complications.
[2017-06-16] MEDS ORDERED: SODIUM CHLORIDE 250 ML IV STA (16:24)
[2017-06-16] MEDS ORDERED: METHOTREXATE 2.5 MG TABLET PO SCH (17:00)
--- NOTE | 2017-06-16 17:03 | PATH ---
Surgical Pathology Report Patient Name: AIYANA DILLARD [facility]. Rec. 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 Specimen(s) Received A: RIGHT UPPER LOBE WEDGE B: RIGHT UPPER LOBE WEDGE FINAL MARGIN C: LYMPH NODE LEVEL 4R Clinical History Lung nodule Intraoperative Consult Diagnosis A. Right upper lobe wedge, frozen section: Positive for non-small cell carcinoma, grossly 1.4 cm from stapled margin. B. Right upper lobe wedge final margin, frozen section: No carcinoma identified. Ruben Cornejo M.D., June 15, 2017 Final Diagnosis A. 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 CARCINOMA IS 1.4 CM FROM THE STAPLED PARENCHYMAL MARGIN OF EXCISION. NO VISCERAL PLEURAL INVASION IDENTIFIED. NO LYMPH VASCULAR INVASION IDENTIFIED. B. LUNG, RIGHT UPPER LOBE WEDGE FINAL MARGIN, EXCISION: BENIGN LUNG TISSUE. C. LYMPH NODE, LEVEL 4R, EXCISION: ONE BENIGN LYMPH NODE (0/1). Comment: Immunohistochemical stains performed and interpreted at [facility] show the following results: The neoplastic cells are positive with p63, AE1/3, weakly positive for CK7, and weakly positive with SUSHANT. The cells do not stain with TTF-1 or CK20. The histologic and immunophenotypic findings are most consistent with squamous cell carcinoma. PD-L1 stain is pending, and a report will follow. Comments Lung Carcinoma: Surgical Pathology Cancer Case Summary (Checklist) Based on AJCC/UICC TNM, 7th edition Specimen Laterality _X__ Right Specimen Integrity _X__ Intact Tumor Site __X_ Upper lobe Tumor Size Greatest dimension: 1.4 cm Tumor Focality _X__ Unifocal Histologic Type : SQUAMOUS CELL CARCINOMA Histologic Grade _X__ G2: Moderately differentiated Visceral Pleura Invasion _X__ Not identified Tumor Extension : LIMITED TO LUNG Margins Bronchial Margin _X__ Not applicable Vascular Margin _X__ Not applicable Parenchymal Margin _X__ Uninvolved by invasive carcinoma Parietal Pleural Margin _X__ Not applicable Chest Wall Margin _X__ Not applicable If all margins uninvolved by invasive carcinoma: Distance of invasive carcinoma from closest margin: 14 mm Specify margin: PARENCHYMAL Treatment Effect _X__ Not applicable Lymph-Vascular Invasion _X__ Not identified Pathologic Staging (pTNM) Primary Tumor: pT1b Regional Lymph Nodes: pN0 Number examined 1 Number involved 0 Distant Metastasis: pMX Electronically Signed Han Cornejo M.D. Addendum Reported: 06/17/2017 Addendum Diagnosis PD-L1 (DAKO 22C3) immunohistochemical stain performed and interpreted at [employer] [facility] [employer] [place], [place] ([id number]) on block A3. RESULTS: LOW PD-L1 EXPRESSION. TUMOR PROPORTION SCORE (TPS) RESULT: 1% Staining Location: Membranous Staining Distribution: 1-49% Staining Intensity: 1+ See [facility] report for details ([id number]). Leisa Alvarado M.D. Gross Description A. Received fresh for frozen section labeled "right upper lobe wedge" is a 10 x 7.5 x 2.2 cm portion of lung with stapled margins. There is a dimpled area at the pleura. Cut surface in this area reveals a 0.6 cm chan and white tumor nodule. The surrounding lung tissue is dark brown and focally hemorrhagic. The tumor is grossly 1.4 cm from the nearest stapled margin. A applications sales representative section of the tumor is frozen and a frozen remainder is submitted in cassette FSA. The remaining tumor with surrounding tissue is submitted in cassettes A2 through A5. The stapled margin is submitted in cassettes A6 and A7, and the uninvolved lung parenchyma is in cassette A8. B. Received fresh for frozen section labeled "right upper lobe wedge final margin" is a 1.0 x 0.6 x 0.2 cm portion of pink tissue. The specimen is frozen in its entirety and the frozen remainder is submitted in cassette FSB. C. Received in formalin labeled "lymph node level IVR," is a 1.3 x 0.5 x 0.3 cm red-brown possible lymph node. The specimen is submitted in toto in one cassette. [facility]/06/15/2017 [facility]/06/15/2017
--- NOTE | 2017-06-16 17:18 | PN ---
Physical Exam: SUBJECTIVE: Patient seen and examined OBJECTIVE: Vital Signs Period Temp Pulse Resp BP Sys/Valentino Pulse Ox Last 24 Hr 98.6 F-99.1 F 68-107 10-25 79-130/34-64 95-99 GENERAL: Awake, alert, and fully oriented, in no acute distress. HEAD: Normal with no signs of trauma. EYES: Pupils equal, round and reactive to light, extraocular movements intact, sclera anicteric, conjunctiva clear. No lid lag. EARS, NOSE, THROAT: Ears normal, nares patent, oropharynx clear without exudates. Moist mucous membranes. NECK: Normal range of motion, supple without lymphadenopathy, JVD, or masses. LUNGS: anterior breath sounds clear to auscultation, right pig tail with chest tube s/p VATS procedure HEART: Regular rate and rhythm on hospital monitor ABDOMEN: Soft, nontender, not distended, normoactive bowel sounds, MUSCULOSKELETAL: Normal range of motion at all joints. No bony deformities or tenderness. UPPER EXTREMITIES: No peripheral edema. LOWER EXTREMITIES: No peripheral edema. NEUROLOGICAL: Normal speech. Gait not observed PSYCHIATRIC: Cooperative. Good eye contact. Appropriate mood and affect. SKIN: Right pig tail to chest tube s/p VATS procedure Laboratory Results - last 24 hr 06/15/17 06/15/17 06/16/17 07:14 22:19 05:15 WBC 10.4 H 7.5 RBC 2.99 L 2.60 L Hgb 9.9 L D 8.6 L D Hct 29.6 L D 26.0 L MCV 98.9 H 99.8 H MCH 33.0 33.1 MCHC 33.3 33.2 RDW 16.6 H 16.9 H Plt Count 158 113 L D MPV 9.0 9.1 Neutrophils % 84.0 H D Lymphocytes % 8.7 D Monocytes % 7.1 Eosinophils % 0.0 D Basophils % 0.2 Sodium Potassium Chloride Carbon Dioxide Anion Gap BUN Creatinine Random Glucose Calcium Phosphorus Magnesium Blood Type O POSITIVE Antibody Screen Negative Crossmatch See Detail 06/16/17 05:15 WBC RBC Hgb Hct MCV MCH MCHC RDW Plt Count MPV Neutrophils % Lymphocytes % Monocytes % Eosinophils % Basophils % Sodium 143 Potassium 3.8 Chloride 107 Carbon Dioxide 27 Anion Gap 9 BUN 22 H Creatinine 0.5 L Random Glucose 87 Calcium 7.6 L Phosphorus 3.9 Magnesium 1.9 Blood Type Antibody Screen Crossmatch Active Medications Generic Name Dose Route Start Last Admin Trade Name Joey PRN Reason Stop Dose Admin Acetaminophen 1,000 mg 06/16/17 16:30 Ofirmev Injection - IVPB 06/17/17 09:01 Q6H-IV NICKOLAS Albuterol/Ipratropium 1 amp 06/15/17 16:07 Duoneb - NEB Q4H PRN SHORTNESS OF BREATH Fentanyl/Bupivacaine/Sodium Chlor 50 ml 06/16/17 16:25 06/16/17 16:53 Bupivicaine 0.125%/Fentanyl 2mcg/Ml Pcea - EP 50 ml ASDIR NICKOLAS Administration Protocol Folic Acid 1 mg 06/17/17 10:00 Folic Acid - PO DAILY NICKOLAS Heparin Sodium (Porcine) 5,000 unit 06/16/17 10:00 06/16/17 09:50 Heparin - SQ 5,000 unit BID NICKOLAS Administration Famotidine/Sodium Chloride 20 mg in 50 mls @ 100 mls/hr 06/15/17 22:00 09:50 Pepcid 20 Mg Premixed Ivpb - IVPB 100 mls/hr BID NICKOLAS Administration Lactated Ringer's 1,000 mls @ 100 mls/hr 06/15/17 22:43 06/15/17 22:17 Lactated Ringers Solution IV 100 mls/hr ASDIR NICKOLAS Administration Sodium Chloride 250 mls @ 250 mls/hr 06/16/17 16:24 06/16/17 16:49 Normal Saline - IV 06/16/17 17:23 250 mls/hr ASDIR STA Administration Ipratropium [place] 1 amp 06/15/17 12:00 06/16/17 15:46 Atrovent 0.02% Nebulizer - NEB 06/22/17 08:01 1 amp RQID NICKOLAS Administration Levothyroxine Sodium 125 mcg 06/17/17 07:00 Synthroid - PO DAILY@0700 [facility] Methotrexate 22.5 mg 06/16/17 17:00 Mexate - PO Tu@1000 [facility] Multivitamins/Minerals/Vitamin C 1 tab 06/17/17 10:00 Tab-A-Vit - PO DAILY NICKOLAS Ondansetron HCl 4 mg 06/15/17 14:01 Zofran Injection IVPUSH Q6H PRN NAUSEA AND/OR VOMITING Promethazine HCl 12.5 mg 06/15/17 14:01 Phenergan Injection - IVPB Q6H PRN NAUSEA-FOR RESCUE AFTER 15 MIN Senna 2 tab 06/15/17 12:01 Senna - PO HS PRN CONSTIPATION ASSESSMENT/PLAN: Patient is a 77 year old female with a significant past medical history of autoimmune thyroiiditis, osteoarthritis, essential (primary) hypertension, rheumatoid arthritis, radha danlos syndrome, former smoker. Patient is s/p bronchoscopy, VATS with extensive pneumolysis, right upper lobe wedge, mediastinal lymph node sampling today with Dr. Chambers. Patient is being monitored in the ICU post-op. Pathology: RUL wedge, frozen section: positive for non small carcinoma Pulmonary: s/p bronchoscopy/VATS on 06/15/2017 Extensive adhesions lysed to maximize lung expansion Right upper lobe wedge Monitor out put on chest tube Monitor respiratory status Allbuterol prn On supplemental oxygen @ 2-3 liters Cardiology Hypertension, chronic On Lisinopril Cardiac monitoring Endocrine Rheumatoid arthritis On Methotraxtate Hypothyroidism On Syntrhoid daily Vocal cord paralysis Seen by speech and swallow F.E.N. Fluids: LR @ 100 cc/hr Electrolytes: monitor with a.m labs Nutrition: dysphasia diet Prophylaxis: DVT: SCDs GI: Pepcid Disposition: full code. Visit type - Emergency Visit Emergency Visit: Yes ED Registration Date: 06/15/17 Care time: The patient presented to the Emergency Department on the above date and was hospitalized for further evaluation of their emergent condition. - New Patient This patient is new to me today: No - Critical Care Critical Care patient: Yes Total Critical Care Time (in minutes): 35 Critical Care Statement: The care of this patient involved high complexity decision making to prevent further life threatening deterioration of the patient 's condition and/or to evaluate & treat vital organ system(s) failure or risk of failure.
--- NOTE | 2017-06-16 21:50 | PN ---
Progress Note (short form) - Note Progress Note: Chest tube site oozing blood. Stat PT/INR Stat CXR Heparin BID D/Christos
[2017-06-16] MEDS: LACTATED RINGERS SOLUTION 1,000 ML IV SCH (23:00)
[2017-06-17] MEDS ORDERED: POLYETHYLENE GLYCOL 3350 119 GM BTL PO ONE (02:33)
[2017-06-17] MEDS: ACETAMINOPHEN 1000 MG/100 ML VIAL (NON FORMULARY) IVPB SCH ×2 (02:34→09:12)
[2017-06-17 05:54] LABS: BASO % 0.4 % (0-2.0); EOS % 2.1 % (0-4.5); HEMATOCRIT 23.8 % (32.4-45.2); LYMPH % 10.8 % (8-40); MCH 33.6 pg (25.7-33.7); MCHC 33.7 g/dl (32.0-36.0); MEAN CELL VOLUME 99.6 fl (80-96); MEAN PLT VOLUME 9.4 fl (7.5-11.1); MONO % 4.2 % (3.8-10.2); NEUT % 82.5 % (42.8-82.8); PLATELET COUNT 99 K/MM3 (134-434); RBC 2.39 M/mm3 (3.60-5.2); RDW 16.5 % (11.6-15.6); WHITE BLOOD COUNT 9.3 K/mm3 (4.0-10.0)
[2017-06-17 06:16] LABS: ALBUMIN 2.4 g/dl (3.4-5.0); ANION GAP 6 (8-16); BILIRUBIN,TOTAL 0.5 mg/dL (0.2-1.0); BLOOD UREA NITROGEN 10 mg/dL (7-18); CALCIUM 7.1 mg/dL (8.5-10.1); CHLORIDE 108 mmol/L (98-107); CO2 29 mmol/L (21-32); CREATININE 0.4 mg/dL (0.55-1.02); GLUCOSE,RANDOM 75 mg/dL (74-106); MAGNESIUM 1.8 mg/dL (1.8-2.4); SGOT/AST 27 U/L (15-37); SGPT/ALT 31 U/L (12-78); SODIUM 143 mmol/L (136-145); TOT PROT 4.7 g/dl (6.4-8.2)
[2017-06-17 06:17] LABS: ALK PHOS 62 U/L (45-117)
[2017-06-17] MEDS: LEVOTHYROXINE NA 125 MCG TABLET (FP) PO SCH (06:27)
[2017-06-17] MEDS ORDERED: MAGNESIUM SULF 50% (8.12 MEQ/2 ML-1 GM VIAL) IVPB ONE (07:45)
--- NOTE | 2017-06-17 08:02 | PN ---
Progress Note (short form) - Note Progress Note: Thoracic Surgery POD#2 Pain controlled. Epidural out. Breathing OK. Poor cough. CT without tidaling or air-leak. Drainage slightly sanguineous but minimal. Continue CT to suction. OK for dc from ICU to monitored unit. Needs respiratory therapy and ambulation.
[2017-06-17] MEDS: IPRATROPIUM BR 0.02% 0.5 MG/2.5 ML VIAL.NEB. NEB SCH ×4 (08:05→20:15)
[2017-06-17] MEDS ORDERED: MAGNESIUM SULF 50% (8.12 MEQ/2 ML-1 GM VIAL) ONE (08:07)
--- NOTE | 2017-06-17 09:05 | PN ---
Progress Note (short form) - Note Progress Note: S: Pt S/p Right VATS, thoracic epidural. Pt OOB in chair, doing well, eating. Thoracic Epidural was D/earnest overnight O: VSS pt stable, Pain well controlled 2-3/10 with PO meds A/P: Pt doing very well. Pt offers no complaints. Pain well controlled. No apparent anesthetic complications noted. Continue current pain regieme
--- NOTE | 2017-06-17 09:18 | PN ---
Physical Exam: SUBJECTIVE: Patient seen and examined Overnight, chest tube site was found to be leaking bloody fluid, so heparin was discontinued. This am, pt reports decreased chest pain and pain in her mouth. She denies SOB, abdominal pain, n/v/, dysuria, and LE pain. OBJECTIVE: Vital Signs Period Temp Pulse Resp BP Sys/Valentino Pulse Ox Last 24 Hr 98.4 F-99.1 F 68-107 11-25 91-141/39-71 95-100 GENERAL: elderly female, awake, alert, and fully oriented, in no acute distress. HEENT: b/l miosis, L wandering eye, right-tongue ecchymosis LUNGS: right sided rhonchi/rales up to mid lung, left basilar rales HEART: Regular rate and rhythm, S1, S2 without murmur, rub or gallop. chest tube on right side draining bloody fluid ABDOMEN: Soft, nontender, nondistended, normoactive bowel sounds, no guarding, no rebound, no hepatosplenomegaly, no masses. EXTREMITIES: 2+ pulses, warm, well-perfused, no edema. NEUROLOGICAL: Cranial nerves II through XII grossly intact. Normal speech, gait not observed. Laboratory Results - last 24 hr 06/17/17 06/17/17 05:15 05:15 WBC 9.3 RBC 2.39 L Hgb 8.0 L Hct 23.8 L MCV 99.6 H MCH 33.6 MCHC 33.7 RDW 16.5 H Plt Count 99 L MPV 9.4 Neutrophils % 82.5 Lymphocytes % 10.8 D Monocytes % 4.2 Eosinophils % 2.1 D Basophils % 0.4 Sodium 143 Potassium 4.0 Chloride 108 H Carbon Dioxide 29 Anion Gap 6 L BUN 10 Creatinine 0.4 L Creat Clearance w eGFR > 60 Random Glucose 75 Calcium 7.1 L Phosphorus 2.0 L Magnesium 1.8 Total Bilirubin 0.5 AST 27 ALT 31 Alkaline Phosphatase 62 Total Protein 4.7 L Albumin 2.4 L Active Medications Generic Name Dose Route Start Last Admin Trade Name Freq PRN Reason Stop Dose Admin Albuterol/Ipratropium 1 amp 06/15/17 16:07 Duoneb - NEB Q4H PRN SHORTNESS OF BREATH Fentanyl/Bupivacaine/Sodium Chlor 50 ml 06/16/17 16:25 06/16/17 19:26 Bupivicaine 0.125%/Fentanyl 2mcg/Ml Pcea - EP 50 ml ASDIR NICKOLAS Administration Protocol Folic Acid 1 mg 06/17/17 10:00 06/17/17 09:12 Folic Acid - PO 1 mg DAILY NICKOLAS Administration Heparin Sodium (Porcine) 5,000 unit 06/17/17 10:00 Heparin - SQ BID NICKOLAS Famotidine/Sodium Chloride 20 mg in 50 mls @ 100 mls/hr 06/15/17 22:00 21:33 Pepcid 20 Mg Premixed Ivpb - IVPB 100 mls/hr BID NICKOLAS Administration Magnesium Sulfate/Dextrose 1 gm in 100 mls @ 100 mls/hr 06/17/17 09:45 09:14 Magnesium 1gm/D5w - IVPB 06/17/17 10:44 100 mls/hr ONCE ONE Administration Ipratropium [place] 1 amp 06/15/17 12:00 06/17/17 08:05 Atrovent 0.02% Nebulizer - NEB 06/22/17 08:01 1 amp RQID NICKOLAS Administration Levothyroxine Sodium 125 mcg 06/17/17 07:00 06/17/17 06:27 Synthroid - PO 125 mcg DAILY@0700 NICKOLAS Administration Methotrexate 22.5 mg 06/16/17 17:00 06/16/17 17:20 Mexate - PO 22.5 mg Tu@1000 NICKOLAS Administration Multivitamins/Minerals/Vitamin C 1 tab 06/17/17 10:00 06/17/17 09:12 Tab-A-Vit - PO 1 tab DAILY NICKOLAS Administration Ondansetron HCl 4 mg 06/15/17 14:01 Zofran Injection IVPUSH Q6H PRN NAUSEA AND/OR VOMITING Promethazine HCl 12.5 mg 06/15/17 14:01 Phenergan Injection - IVPB Q6H PRN NAUSEA-FOR RESCUE AFTER 15 MIN Senna 2 tab 06/15/17 12:01 Senna - PO HS PRN CONSTIPATION ASSESSMENT/PLAN: 77F w/ hx of Lorenza Danlos Syndrome, hyperthyroidism, HTN, rheumatoid arthritis who presented s/p bronchoscopy/VATS/extensive pneumolysis/Right upper lobe wedge resection/mediastinal lymph node sampling by Dr. Chambers. #Pulm - Right upper lobe nodule: s/p bronchoscopy/VATS/extensive pneumolysis/Right upper lobe wedge resection/mediastinal lymph node sampling by Dr. Chambers on 03/23 - recs by Dr. Chambers appreciated - chest tube drainage: serosanginous, 180 yesterday, 70 today - pain control with APAP and oxycodone. fentanyl/bupivicaine gtt discontinued - Nebs prn - O2 prn - incentive spirometry - chest PT - oob to chair # Endocrine - hypothyroidism, continue synthroid #Cardiovascular - BP stable, LR D/C'd - hold home HTN meds for now - continue to monitor - anemia, Hgb of 8 today, down from 8.6. trend CBC #GI - contipation: start colace, continue senna #ENT - vocal cord paralysis of unknown etiology - S&S eval: impaired. rec dysphagia puree #Rheum - RA # FEN/ppx -po fluids -Mg and Ph repleted -dysphagia puree -pepcid -heparin 5000 BID #Dispo -transfer to Case discussed with attending, Dr. Bedoya. -Jean Carlos Villegas MD PGY1 Visit type - Emergency Visit Emergency Visit: Yes ED Registration Date: 06/15/17 Care time: The patient presented to the Emergency Department on the above date and was hospitalized for further evaluation of their emergent condition. - New Patient This patient is new to me today: No - Critical Care Critical Care patient: Yes Total Critical Care Time (in minutes): 35 Critical Care Statement: The care of this patient involved high complexity decision making to prevent further life threatening deterioration of the patient 's condition and/or to evaluate & treat vital organ system(s) failure or risk of failure.
[2017-06-17] MEDS: HEPARIN NA (PORCINE) 5,000 UNITS/ML 1ML VIAL SQ SCH ×2 (09:27→21:49)
[2017-06-17] MEDS ORDERED: MAGNESIUM 1GM/D5W - 1 GM/100 ML IVPB IVPB ONE (09:45)
[2017-06-17] MEDS ORDERED: MULTIVITAMINS (DAILY MVI) TABLET (FP) PO SCH (10:00)
[2017-06-17] MEDS ORDERED: FOLIC ACID 1 MG TABLET (FP) PO SCH (10:00)
[2017-06-17] MEDS ORDERED: NAPH,MB-DB/K PH,MBDB POWDER PACKET PO ONE (10:35)
--- NOTE | 2017-06-17 11:20 | PN ---
Physical Exam: SUBJECTIVE: Patient seen and examined at bedside. OBJECTIVE: Vital Signs Period Temp Pulse Resp BP Sys/Valentino Pulse Ox Last 24 Hr 98.4 F-99.1 F 73-108 11-25 91-141/41-78 95-100 GENERAL: The patient is awake, alert, and fully oriented, in no acute distress. Pale, weak. LUNGS: Breath sounds equal, clear to auscultation bilaterally, no wheezes, no crackles, no accessory muscle use. HEART: Regular rate and rhythm, S1, S2. Right chest tube ABDOMEN: Soft, nontender, nondistended, normoactive bowel sounds, no guarding, no rebound, no hepatosplenomegaly, no masses. EXTREMITIES: 2+ pulses, warm, well-perfused, no edema. NEUROLOGICAL: Cranial nerves II through XII grossly intact. Normal speech, gait not observed. PSYCH: Normal mood, normal affect. SKIN: Warm, dry, normal turgor, no rashes or lesions noted Laboratory Results - last 24 hr 06/17/17 06/17/17 05:15 05:15 WBC 9.3 RBC 2.39 L Hgb 8.0 L Hct 23.8 L MCV 99.6 H MCH 33.6 MCHC 33.7 RDW 16.5 H Plt Count 99 L MPV 9.4 Neutrophils % 82.5 Lymphocytes % 10.8 D Monocytes % 4.2 Eosinophils % 2.1 D Basophils % 0.4 Sodium 143 Potassium 4.0 Chloride 108 H Carbon Dioxide 29 Anion Gap 6 L BUN 10 Creatinine 0.4 L Creat Clearance w eGFR > 60 Random Glucose 75 Calcium 7.1 L Phosphorus 2.0 L Magnesium 1.8 Total Bilirubin 0.5 AST 27 ALT 31 Alkaline Phosphatase 62 Total Protein 4.7 L Albumin 2.4 L Current Medications Generic Name Dose Route Start Last Admin Trade Name Freq PRN Reason Stop Dose Admin Albuterol/Ipratropium 1 amp 06/15/17 16:07 Duoneb - NEB Q4H PRN SHORTNESS OF BREATH Docusate Sodium 100 mg 06/17/17 10:45 Colace - PO BID NICKOLAS Fentanyl/Bupivacaine/Sodium Chlor 50 ml 06/16/17 16:25 06/16/17 19:26 Bupivicaine 0.125%/Fentanyl 2mcg/Ml Pcea - EP 50 ml ASDIR [facility] Administration Protocol Folic Acid 1 mg 06/17/17 10:00 06/17/17 09:12 Folic Acid - PO 1 mg DAILY NICKOLAS Administration Heparin Sodium (Porcine) 5,000 unit 06/17/17 10:00 06/17/17 09:27 Heparin - SQ 5,000 unit BID NICKOLAS Administration Famotidine/Sodium Chloride 20 mg in 50 mls @ 100 mls/hr 06/15/17 22:00 21:33 Pepcid 20 Mg Premixed Ivpb - IVPB 100 mls/hr BID NICKOLAS Administration Ipratropium [place] 1 amp 06/15/17 12:00 06/17/17 08:05 Atrovent 0.02% Nebulizer - NEB 06/22/17 08:01 1 amp RQID NICKOLAS Administration Levothyroxine Sodium 125 mcg 06/17/17 07:00 06/17/17 06:27 Synthroid - PO 125 mcg DAILY@0700 NICKOLAS Administration Methotrexate 22.5 mg 06/16/17 17:00 06/16/17 17:20 Mexate - PO 22.5 mg Tu@1000 NICKOLAS Administration Multivitamins/Minerals/Vitamin C 1 tab 06/17/17 10:00 06/17/17 09:12 Tab-A-Vit - PO 1 tab DAILY NICKOLAS Administration Ondansetron HCl 4 mg 06/15/17 14:01 Zofran Injection IVPUSH Q6H PRN NAUSEA AND/OR VOMITING Promethazine HCl 12.5 mg 06/15/17 14:01 Phenergan Injection - IVPB Q6H PRN NAUSEA-FOR RESCUE AFTER 15 MIN Senna 2 tab 06/15/17 12:01 Senna - PO HS PRN CONSTIPATION ASSESSMENT/PLAN: Patient is a 77 year old female with PMH significant for HTN, autoimmune thyroiiditis, osteoarthritis, rheumatoid arthritis, Lorenza Danlos syndrome, and vocal cord paralysis. Now diagnosed with lung cancer. Lung cancer s/p bronchoscopy, right thoracoscopy, pneumolysis, right upper lobe wedge resection on 06/15/17 --frozen section positive for malignancy --fentanyl/bupivicaine drip dc'd; epidural out --continue right chest tube to suction; 70cc's serosanguinous output today --nebulizers --CT surgery Dr. Chambers following Hypertension --continue Lisinopril Rheumatoid arthritis --continue methotraxtate Hypothyroidism --continue levothyroxine Vocal cord paralysis --speech and swallow evaluation done Hypophosphotemia --repleted FEN Fluids: PO intake adequate Electrolytes: replete as indicated Nutrition: dysphagia puree, honey thick liquids, Magic Cup DVT prophylaxis: subq heparin Physical therapy Dispo: continues to require ICU care. Full code. Visit type - Emergency Visit Emergency Visit: Yes ED Registration Date: 06/15/17 Care time: The patient presented to the Emergency Department on the above date and was hospitalized for further evaluation of their emergent condition. - New Patient This patient is new to me today: Yes Date on this admission: 06/17/17 - Critical Care Critical Care patient: Yes Total Critical Care Time (in minutes): 35 Critical Care Statement: The care of this patient involved high complexity decision making to prevent further life threatening deterioration of the patient 's condition and/or to evaluate & treat vital organ system(s) failure or risk of failure.
--- NOTE | 2017-06-17 11:25 | PN ---
Teaching Attending Note Name of Resident: Jean Carlos Villegas ATTENDING PHYSICIAN STATEMENT I saw and evaluated the patient. I reviewed the resident's note and discussed the case with the resident. I agree with the resident's findings and plan as documented. SUBJECTIVE: Pt seen and examined in the ICU. Pain controlled. Denies shortness of breath or chest pain. c/o constipation. Pathology back as squamous cell ca with clear margins. OBJECTIVE: Last Vital Signs Temp Pulse Resp BP Pulse Ox 98.9 F 108 H 22 132/78 100 06/17/17 09:57 06/17/17 09:57 06/17/17 09:57 06/17/17 09:57 06/17/17 09:00 Intake & Output 06/14/17 06/15/17 06/16/17 06/17/17 23:59 23:59 23:59 23:59 Intake Total 2084 4150 850 Output Total 1020 480 70 Balance 1064 3670 780 Weight 50.802 kg 50.349 kg 50.065 kg Gen: NAD in chair Heart: tachycardic, regular Lung: scattered basilar rales Abd: soft, nontender Ext: no edema Chest tube: serosanguinous drainage, no air leak CBC, BMP 06/17/17 05:15 06/17/17 05:15 Active Medications Albuterol/Ipratropium (Duoneb -) 1 amp NEB Q4H PRN PRN Reason: SHORTNESS OF BREATH Docusate Sodium (Colace -) 100 mg PO BID [facility] Fentanyl/Bupivacaine/Sodium Chlor (Bupivicaine 0.125%/Fentanyl 2mcg/Ml Pcea -) 50 ml EP ASDIR [facility] PRN Reason: Protocol Last Admin: 06/16/17 19:26 Dose: 50 ml Folic Acid (Folic Acid -) 1 mg PO DAILY [facility] Last Admin: 06/17/17 09:12 Dose: 1 mg Heparin Sodium (Porcine) (Heparin -) 5,000 unit SQ BID [facility] Last Admin: 06/17/17 09:27 Dose: 5,000 unit Famotidine/Sodium Chloride (Pepcid 20 Mg Premixed Ivpb -) 20 mg in 50 mls @ 100 mls/hr IVPB BID [facility] Last Admin: 06/16/17 21:33 Dose: 100 mls/hr Ipratropium [place] (Atrovent 0.02% Nebulizer -) 1 amp NEB RQID [facility] Stop: 06/22/17 08:01 Last Admin: 06/17/17 08:05 Dose: 1 amp Levothyroxine Sodium (Synthroid -) 125 mcg PO DAILY@0700 [facility] Last Admin: 06/17/17 06:27 Dose: 125 mcg Methotrexate (Mexate -) 22.5 mg PO Tu@1000 [facility] Last Admin: 06/16/17 17:20 Dose: 22.5 mg Multivitamins/Minerals/Vitamin C (Tab-A-Vit -) 1 tab PO DAILY [facility] Last Admin: 06/17/17 09:12 Dose: 1 tab Ondansetron HCl (Zofran Injection) 4 mg IVPUSH Q6H PRN PRN Reason: NAUSEA AND/OR VOMITING Promethazine HCl (Phenergan Injection -) 12.5 mg IVPB Q6H PRN PRN Reason: NAUSEA-FOR RESCUE AFTER 15 MIN Senna (Senna -) 2 tab PO HS PRN PRN Reason: CONSTIPATION ASSESSMENT AND PLAN: Squamous Cell Ca s/p R VATS/pneumolysis/wedge resection/mediastinal lymph node sampling Lorenza Danlos Syndrome h/o Autoimmune Thyroiditis Rheumatoid Arthritis HTN - pain control - incentive spirometry - inhaled bronchodilators - O2 as needed - monitor chest tube output - PO as tolerated - OOB to chair - DVT prophylaxis - can monitor on floor
[2017-06-17] MEDS: DOCUSATE SODIUM 100 MG CAPSULE (FP) PO SCH ×2 (12:11→21:49)
--- NOTE | 2017-06-17 12:39 | PN ---
Progress Note, [employer] - Note Progress Note: Pt doing much better. Good vocal quality. Tolerating puree/honey thick liquid. Still c/o pharyngeal odynophagia, better but still significant ("7"). Overtly tolerated soft cookie and 3 oz water without overt difficulty. Silent aspiration Can not be r/o at bedside . H/O left VC paralysis without h/o dysphagia REC: Trial of Dys ground with 1-2 soft items Thin liquid If cough, throat clear, congestion, downgrade diet and MBS to r/o silent aspiration
[2017-06-17] MEDS ORDERED: BENZOCAINE/MENTH/CETYLPYRD CL 1 EACH LOZENGE MM PRN (15:28)
[2017-06-18 05:43] LABS: BASO % 0.4 % (0-2.0); EOS % 0.5 % (0-4.5); HEMOGLOBIN 9.3 GM/dL (10.7-15.3); LYMPH % 6.1 % (8-40); MCH 34.4 pg (25.7-33.7); MCHC 34.6 g/dl (32.0-36.0); MEAN CELL VOLUME 99.4 fl (80-96); MEAN PLT VOLUME 9.9 fl (7.5-11.1); MONO % 1.6 % (3.8-10.2); NEUT % 91.4 % (42.8-82.8); PLATELET COUNT 124 K/MM3 (134-434); RBC 2.71 M/mm3 (3.60-5.2); RDW 16.8 % (11.6-15.6); WHITE BLOOD COUNT 10.4 K/mm3 (4.0-10.0)
[2017-06-18 06:08] LABS: ALBUMIN 2.6 g/dl (3.4-5.0); ANION GAP 11 (8-16); BLOOD UREA NITROGEN 8 mg/dL (7-18); CALCIUM 7.6 mg/dL (8.5-10.1); CHLORIDE 101 mmol/L (98-107); CO2 28 mmol/L (21-32); GLUCOSE,RANDOM 84 mg/dL (74-106); MAGNESIUM 2.1 mg/dL (1.8-2.4); POTASSIUM 3.7 mmol/L (3.5-5.1); SODIUM 140 mmol/L (136-145)
[2017-06-18] MEDS: LEVOTHYROXINE NA 125 MCG TABLET (FP) PO SCH (06:09)
[2017-06-18 06:13] LABS: ALK PHOS 74 U/L (45-117); BILIRUBIN,TOTAL 0.9 mg/dL (0.2-1.0); CREATININE 0.3 mg/dL (0.55-1.02); PHOSPHOROUS 2.3 mg/dL (2.5-4.9); SGOT/AST 48 U/L (15-37); SGPT/ALT 45 U/L (12-78); TOT PROT 5.6 g/dl (6.4-8.2)
[2017-06-18] MEDS: IPRATROPIUM BR 0.02% 0.5 MG/2.5 ML VIAL.NEB. NEB SCH ×4 (07:45→20:43)
[2017-06-18] MEDS ORDERED: ALBUTEROL SO4 2.5/IPRATROPIUM 0.5 INH SOL 3 ML VIAL.NEB. NEB PRN (07:47)
[2017-06-18] MEDS ORDERED: ONDANSETRON 4 MG/2 ML VIAL IVPUSH PRN ×2 (07:47→17:42)
[2017-06-18] MEDS ORDERED: SENNOSIDES 8.6MG TABLET (FP) PO PRN (07:47)
--- NOTE | 2017-06-18 09:56 | PN ---
Progress Note (short form) - Note Progress Note: POD#3 Doing well. Some surgical pain. Tachy s/p bm. No air-leak. Drainage still slightly sanguineous. Continue chest tube 1-2 more days. OOB,ambulate, wean oxygen!
[2017-06-18] MEDS ORDERED: ACETAMINOPHEN 325 MG TABLET (FP) PO PRN ×2 (09:57→11:02)
[2017-06-18] MEDS ORDERED: HEPARIN NA (PORCINE) 5,000 UNITS/ML 1ML VIAL SQ SCH (10:00)
[2017-06-18] MEDS ORDERED: DOCUSATE SODIUM 100 MG CAPSULE (FP) PO SCH (10:00)
[2017-06-18] MEDS ORDERED: MULTIVITAMINS (DAILY MVI) TABLET (FP) PO SCH (10:00)
[2017-06-18] MEDS ORDERED: FOLIC ACID 1 MG TABLET (FP) PO SCH (10:00)
[2017-06-18] MEDS ORDERED: PANTOPRAZOLE 40 MG TABLET (FP) PO SCH (10:00)
--- NOTE | 2017-06-18 10:51 | PN ---
Progress Note, Physician History of Present Illness: pulmonary alert,oob-chair,-sob,-cough. chest tube off suction - Current Medication List Current Medications: Active Medications Acetaminophen (Tylenol -) 325 mg PO Q4H PRN PRN Reason: PAIN Albuterol/Ipratropium (Duoneb -) 1 amp NEB Q4H PRN PRN Reason: SHORTNESS OF BREATH Benzocaine/Menthol (Cepacol Lozenge -) 1 each MM PRN PRN PRN Reason: SORE THROAT Last Admin: 06/17/17 16:42 Dose: 1 each Docusate Sodium (Colace -) 100 mg PO BID [facility] Last Admin: 06/18/17 09:41 Dose: 100 mg Folic Acid (Folic Acid -) 1 mg PO DAILY [facility] Last Admin: 06/18/17 09:41 Dose: 1 mg Heparin Sodium (Porcine) (Heparin -) 5,000 unit SQ BID [facility] Last Admin: 06/18/17 09:40 Dose: 5,000 unit Ipratropium [place] (Atrovent 0.02% Nebulizer -) 1 amp NEB RQID [facility] Stop: 06/19/17 16:01 Last Admin: 06/18/17 07:45 Dose: 1 amp Levothyroxine Sodium (Synthroid -) 125 mcg PO DAILY@0700 [facility] Methotrexate (Mexate -) 22.5 mg PO Tu@1000 [facility] Multivitamins/Minerals/Vitamin C (Tab-A-Vit -) 1 tab PO DAILY [facility] Last Admin: 06/18/17 09:41 Dose: 1 tab Ondansetron HCl (Zofran Injection) 4 mg IVPUSH Q6H PRN PRN Reason: NAUSEA AND/OR VOMITING Stop: 06/19/17 01:00 Pantoprazole Sodium (Protonix -) 40 mg PO DAILY [facility] Last Admin: 06/18/17 09:41 Dose: 40 mg Senna (Senna -) 2 tab PO HS PRN PRN Reason: CONSTIPATION - Objective Vital Signs: Vital Signs Temperature 98.4 F 06/18/17 06:00 Pulse Rate 111 H 06/18/17 06:00 Respiratory Rate 22 06/18/17 06:00 Blood Pressure 126/98 06/18/17 06:00 O2 Sat by Pulse Oximetry (%) 99 06/17/17 21:00 Constitutional: Yes: Calm, Thin Eyes: Yes: WNL HENT: Yes: WNL Neck: Yes: WNL Cardiovascular: Yes: Regular Rate and Rhythm, S1, S2 Respiratory: Yes: Diminished Gastrointestinal: Yes: Normal Bowel Sounds, Soft Extremities: Yes: WNL Edema: No Labs: CBC, BMP 06/18/17 05:00 06/18/17 05:00 INR, PTT INR 1.06 (0.82-1.09) 06/15/17 13:15 - ....Imaging Chest X-ray: Report Reviewed, Image Reviewed Problem List - Problems (1) Lung cancer Code(s): C34.90 - MALIGNANT NEOPLASM OF UNSP PART OF UNSP BRONCHUS OR LUNG (2) Autoimmune thyroiditis Code(s): E06.3 - AUTOIMMUNE THYROIDITIS (3) Lorenza-Danlos syndrome Code(s): Q79.6 - LORENZA-DANLOS SYNDROME (4) Hypertension Code(s): I10 - ESSENTIAL (PRIMARY) HYPERTENSION (5) Lung nodule Code(s): R91.1 - SOLITARY PULMONARY NODULE (6) Rheumatoid arthritis Code(s): M06.9 - RHEUMATOID ARTHRITIS, UNSPECIFIED Assessment/Plan ASSESSMENT AND PLAN: Squamous Cell Ca s/p R VATS/pneumolysis/wedge resection/mediastinal lymph node sampling Lorenza Danlos Syndrome h/o Autoimmune Thyroiditis Rheumatoid Arthritis HTN - pain control - incentive spirometry - inhaled bronchodilators - O2 as needed - chest tube as per thoracic - PO as tolerated - OOB to chair - DVT prophylaxis DR PUCKETT
--- NOTE | 2017-06-18 10:52 | PN ---
Progress Note, [employer] - Note Progress Note: Laboratory Tests 06/17/17 06/18/17 05:15 05:00 WBC 9.3 10.4 H Pt doing much better. Good vocal quality. Still on puree/honey thick liquid. Still c/o pharyngeal odynophagia, but continues to improve. Reassessed swallowing with responsive cough on thin liquid today. REC: Trial of Dys ground with 1-2 soft items Benavides liquid If cough, throat clear, congestion, downgrade diet. Consider MBS to r/o silent aspiration and upgrade diet with safety
--- NOTE | 2017-06-18 16:48 | PN ---
Physical Exam: SUBJECTIVE: Patient seen and examined. Feels well, aware of diagnosis. OBJECTIVE: Chest tube to water seal Vital Signs Period Temp Pulse Resp BP Sys/Valentino Pulse Ox Last 24 Hr 98.4 F-99.3 F 81-122 20-24 107-152/59-98 98-99 GENERAL: Awake, alert, and fully oriented, in no acute distress. HEAD: Normal with no signs of trauma. EYES: Pupils equal, round and reactive to light, extraocular movements intact, sclera anicteric, conjunctiva clear. No lid lag. EARS, NOSE, THROAT: Ears normal, nares patent, oropharynx clear without exudates. Moist mucous membranes. NECK: Normal range of motion, supple without lymphadenopathy, JVD, or masses. LUNGS: anterior breath sounds clear to auscultation, right pig tail with chest tube s/p VATS procedure - now to water seal HEART: Regular rate and rhythm on cardiac cath tech ABDOMEN: Soft, nontender, not distended, normoactive bowel sounds, MUSCULOSKELETAL: Normal range of motion at all joints. No bony deformities or tenderness. UPPER EXTREMITIES: No peripheral edema. LOWER EXTREMITIES: No peripheral edema. NEUROLOGICAL: Normal speech. Gait not observed PSYCHIATRIC: Cooperative. Good eye contact. Appropriate mood and affect. SKIN: Right pig tail to chest tube s/p VATS procedure Laboratory Results - last 24 hr 06/15/17 06/18/17 06/18/17 07:14 05:00 05:00 WBC 10.4 H RBC 2.71 L Hgb 9.3 L D Hct 27.0 L MCV 99.4 H MCH 34.4 H MCHC 34.6 RDW 16.8 H Plt Count 124 L D MPV 9.9 Neutrophils % 91.4 H Lymphocytes % 6.1 L D Monocytes % 1.6 L Eosinophils % 0.5 Basophils % 0.4 Sodium 140 Potassium 3.7 Chloride 101 Carbon Dioxide 28 Anion Gap 11 BUN 8 Creatinine 0.3 L Creat Clearance w eGFR > 60 Random Glucose 84 Calcium 7.6 L Phosphorus 2.3 L Magnesium 2.1 Total Bilirubin 0.9 D AST 48 H ALT 45 Alkaline Phosphatase 74 Total Protein 5.6 L Albumin 2.6 L Crossmatch See Detail Active Medications Generic Name Dose Route Start Last Admin Trade Name Freq PRN Reason Stop Dose Admin Acetaminophen 650 mg 06/18/17 11:02 06/18/17 14:07 Tylenol - PO 650 mg Q6H PRN Administration PAIN LEVEL 7 - 10 Albuterol/Ipratropium 1 amp 06/18/17 07:47 Duoneb - NEB Q4H PRN SHORTNESS OF BREATH Amitriptyline HCl 25 mg 06/18/17 22:00 Elavil - PO HS NICKOLAS Benzocaine/Menthol 1 each 06/17/17 15:28 06/17/17 16:42 Cepacol Lozenge - MM 1 each PRN PRN Administration SORE THROAT Docusate Sodium 100 mg 06/18/17 10:00 06/18/17 09:41 Colace - PO 100 mg BID NICKOLAS Administration Folic Acid 1 mg 06/18/17 10:00 06/18/17 09:41 Folic Acid - PO 1 mg DAILY NICKOLAS Administration Heparin Sodium (Porcine) 5,000 unit 06/18/17 10:00 06/18/17 09:40 Heparin - SQ 5,000 unit BID NICKOLAS Administration Ipratropium [place] 1 amp 06/18/17 08:00 06/18/17 11:29 Atrovent 0.02% Nebulizer - NEB 06/19/17 16:01 1 amp RQID [facility] Administration Levothyroxine Sodium 125 mcg 06/19/17 07:00 Synthroid - PO DAILY@0700 [facility] Methotrexate 22.5 mg 06/23/17 10:00 Mexate - PO Tu@1000 [facility] Multivitamins/Minerals/Vitamin C 1 tab 06/18/17 10:00 06/18/17 09:41 Tab-A-Vit - PO 1 tab DAILY [facility] Administration Ondansetron HCl 4 mg 06/18/17 07:47 Zofran Injection IVPUSH 06/19/17 01:00 Q6H PRN NAUSEA AND/OR VOMITING Pantoprazole Sodium 40 mg 06/18/17 10:00 06/18/17 09:41 Protonix - PO 40 mg DAILY [facility] Administration Senna 2 tab 06/18/17 07:47 Senna - PO HS PRN CONSTIPATION ASSESSMENT/PLAN: Patient is a 77 year old female with a significant past medical history of autoimmune thyroiiditis, osteoarthritis, essential (primary) hypertension, rheumatoid arthritis, radha danlos syndrome, former smoker. Patient is s/p bronchoscopy, VATS with extensive pneumolysis, right upper lobe wedge, mediastinal lymph node sampling today with Dr. Chambers. Patient is being monitored in the ICU post-op. Pathology: RUL wedge, frozen section: positive for non small carcinoma Pulmonary: s/p bronchoscopy/VATS on 06/15/2017 Extensive adhesions lysed to maximize lung expansion Right upper lobe wedge Chest tube to water seal Monitor respiratory status Allbuterol prn On supplemental oxygen @ 2-3 liters Cardiology Hypertension, chronic On Lisinopril Endocrine Rheumatoid arthritis On Methotraxtate Hypothyroidism On Syntrhoid daily Vocal cord paralysis Seen by speech and swallow, on dysphagia diet F.E.N. Fluids: PO adequate Electrolytes: monitor with a.m labs Nutrition: dysphasia diet Prophylaxis: DVT: SCDs GI: Pepcid Disposition: full code.
--- NOTE | 2017-06-18 20:34 | CONSULT ---
Consult - text type - Consultation Consultation Note: 77 y/o woman with history of HTN, autoimmune thyroiditis, osteoarthritis, rheumatoid arthritis, and radha danlos syndrome admitted to ICU for post-op monitoring. Pt was found to have PET-avid RUL nodule. She underwent bronch, VATS , extensive pneumolysis, RUL wedge resection and mediastinal lymph node sampling by Dr. Chambers on 06/15. Bronch showed no obvious airway lesions and VATS notable for extensive adhesions which were lysed, more than half of RUL moved, chest tube placed with 200cc sero-sanguinous drainage. Of note pt found to have newly diagnosed left vocal cord paralysis of unknown etiology. CXR post- op with small right apical pneumothorax with chest tube in place. - Past Medical History Cardio/Vascular: Yes: HTN Musculoskeletal: Yes: Osteoarthritis, Other (radha danlos syndrome).osteopenia , vertebral compression fxs T12, L1 Rheumatology: Yes: Rheumatoid Arthritis Endocrine: Yes: Hypothyroidism - Smoking History Smoking history: Former smoker Home Medications - Allergies Allergies/Adverse Reactions: Allergies Allergy/AdvReac Type Severity Reaction Status Date / Time codeine Allergy Rash Verified 06/15/17 07:34 seasonal Allergy Uncoded 06/15/17 07:34 - Home Medications Home Medications: Ambulatory Orders Folic Acid 1 mg PO DAILY 04/03/15 Levothyroxine [Synthroid -] 0.125 mcg PO DAILY 04/03/15 Methotrexate Sodium [Methotrexate] 22.5 mg PO WEEKLY 04/03/15 Naproxen Sodium [Naproxen Sodium ER] 500 mg PO PRN PRN 04/03/15 Sulfasalazine [Azulfidine] 1,000 mg PO BID 04/03/15 Amitriptyline HCl 25 mg PO PRN PRN 06/11/17 Lisinopril/Hydrochlorothiazide [Lisinopril-Hctz 20-12.5 mg Tab] 1 each PO DAILY 06/11/17 Multivitamin [One Daily] 1 each PO DAILY 06/11/17 Active Medications Generic Name Dose Route Start Last Admin Trade Name Freq PRN Reason Stop Dose Admin Acetaminophen 650 mg 06/18/17 17:42 Tylenol - PO Q6H PRN PAIN LEVEL 7 - 10 Albuterol/Ipratropium 1 amp 06/18/17 17:42 Duoneb - NEB Q4H PRN SHORTNESS OF BREATH Amitriptyline HCl 25 mg 06/18/17 22:00 Elavil - PO HS NICKOLAS Benzocaine/Menthol 1 each 06/18/17 17:42 Cepacol Lozenge - MM PRN PRN SORE THROAT Docusate Sodium 100 mg 06/18/17 22:00 Colace - PO BID [facility] Folic Acid 1 mg 06/19/17 10:00 Folic Acid - PO DAILY [facility] Heparin Sodium (Porcine) 5,000 unit 06/18/17 22:00 Heparin - SQ BID [facility] Ipratropium [place] 1 amp 06/18/17 20:00 06/18/17 20:43 Atrovent 0.02% Nebulizer - NEB 06/21/17 16:01 1 amp RQID [facility] Administration Levothyroxine Sodium 125 mcg 06/19/17 07:00 Synthroid - PO DAILY@0700 [facility] Methotrexate 22.5 mg 06/23/17 10:00 Mexate - PO Tu@1000 [facility] Multivitamins/Minerals/Vitamin C 1 tab 06/19/17 10:00 Tab-A-Vit - PO DAILY [facility] Ondansetron HCl 4 mg 06/18/17 17:42 Zofran Injection IVPUSH 06/19/17 01:00 Q6H PRN NAUSEA AND/OR VOMITING Pantoprazole Sodium 40 mg 06/19/17 10:00 Protonix - PO DAILY [facility] Senna 2 tab 06/18/17 22:00 Senna - PO HS PRN CONSTIPATION Vital Signs: Last Vital Signs Temp Pulse Resp BP Pulse Ox 97.8 F 103 H 18 149/75 100 06/18/17 18:00 06/18/17 18:00 06/18/17 18:00 06/18/17 18:00 06/18/17 18:00 Cor: RSR, No murmurs, No gallops Lungs: Clear to P&A Abd: Soft, Normal bowel sounds, No organomegaly Ext:No significant edema Assessment/Plan 77 y/o woman with HTN, autoimmune thyroiditis, osteoarthritis, rheumatoid arthritis, and radha danlos syndrome, osteopenia, vertebral T12, L1 fractures. Pt was found to have PET-avid RUL nodule. She underwent bronch, VATS, extensive pneumolysis, RUL wedge resection and mediastinal lymph node sampling by Dr. Chambers on 06/15. Bronch showed no obvious airway lesions and VATS notable for extensive adhesions which were lysed, more than half of RUL moved, chest tube placed. Of note pt found to have newly diagnosed left vocal cord paralysis. Will await final path and discuss with CT surgery
[2017-06-18] MEDS: DOCUSATE SODIUM 100 MG CAPSULE (FP) PO SCH (21:55)
[2017-06-18] MEDS: AMITRIPTYLINE HCL 25 MG TABLET (FP) PO SCH (21:55)
[2017-06-18] MEDS: ACETAMINOPHEN 325 MG TABLET (FP) PO PRN (21:56)
[2017-06-18] MEDS: HEPARIN NA (PORCINE) 5,000 UNITS/ML 1ML VIAL SQ SCH (21:56)
[2017-06-18] MEDS ORDERED: AMITRIPTYLINE HCL 25 MG TABLET (FP) PO SCH (22:00)
[2017-06-19] MEDS: LEVOTHYROXINE NA 125 MCG TABLET (FP) PO SCH (06:22)
[2017-06-19] MEDS ORDERED: LEVOTHYROXINE NA 125 MCG TABLET (FP) PO SCH (07:00)
[2017-06-19] MEDS: IPRATROPIUM BR 0.02% 0.5 MG/2.5 ML VIAL.NEB. NEB SCH ×4 (07:40→20:39)
[2017-06-19 10:30] LABS: BASO % 0.2 % (0-2.0); EOS % 2.8 % (0-4.5); HEMATOCRIT 25.5 % (32.4-45.2); HEMOGLOBIN 8.7 GM/dL (10.7-15.3); LYMPH % 12.5 % (8-40); MCH 33.8 pg (25.7-33.7); MCHC 33.9 g/dl (32.0-36.0); MEAN CELL VOLUME 99.7 fl (80-96); MEAN PLT VOLUME 9.3 fl (7.5-11.1); MONO % 1.5 % (3.8-10.2); PLATELET COUNT 112 K/MM3 (134-434); RBC 2.56 M/mm3 (3.60-5.2); RDW 17.2 % (11.6-15.6); WHITE BLOOD COUNT 7.8 K/mm3 (4.0-10.0)
[2017-06-19 10:32] LABS: CHLORIDE 105 mmol/L (98-107); POTASSIUM 3.5 mmol/L (3.5-5.1); SODIUM 143 mmol/L (136-145)
[2017-06-19] MEDS: PANTOPRAZOLE 40 MG TABLET (FP) PO SCH (10:38)
[2017-06-19] MEDS: HEPARIN NA (PORCINE) 5,000 UNITS/ML 1ML VIAL SQ SCH ×2 (10:38→21:28)
[2017-06-19] MEDS: MULTIVITAMINS (DAILY MVI) TABLET (FP) PO SCH (10:39)
[2017-06-19] MEDS: FOLIC ACID 1 MG TABLET (FP) PO SCH (10:39)
[2017-06-19] MEDS: DOCUSATE SODIUM 100 MG CAPSULE (FP) PO SCH ×2 (10:39→21:28)
[2017-06-19 10:41] LABS: ALBUMIN 2.5 g/dl (3.4-5.0); ALK PHOS 89 U/L (45-117); ANION GAP 9 (8-16); BLOOD UREA NITROGEN 11 mg/dL (7-18); CALCIUM 7.6 mg/dL (8.5-10.1); CO2 29 mmol/L (21-32); CREATININE 0.4 mg/dL (0.55-1.02); GLUCOSE,RANDOM 97 mg/dL (74-106); MAGNESIUM 2.1 mg/dL (1.8-2.4); SGOT/AST 204 U/L (15-37); SGPT/ALT 163 U/L (12-78); TOT PROT 5.6 g/dl (6.4-8.2)
[2017-06-19] MEDS: FENTANYL/BUPIVACAINE/NS/PF - PCEA - 50 ML DISP.SYRIN EP SCH (11:04)
--- NOTE | 2017-06-19 11:45 | PN ---
Progress Note (short form) - Note Progress Note: Pt oob to chair this am. Complains of pain at the tube site. Vital Signs Period Temp Pulse Resp BP Sys/Valentino Pulse Ox Last 24 Hr 97.8 F-98.7 F 81-117 18-22 100-150/46-90 96-100 CT: 50 ml serosangrenous GEN: A&0x3, NAD on NC Chest: dressing with dried blood around the CT. No air leak. Off suction. CXR: No pntx A/p: 77 yo female s/p Right lung wedge resection, POD#4 Doing well, CXR reviewed with Dr. Chambers today and will plan to clamp CT, repeat CXR and if stable remove the CT today.
--- NOTE | 2017-06-19 11:50 | PN ---
Physical Exam: SUBJECTIVE: Patient seen and examined at the bedside. Having pain 8/10, left hip, chest tube site, neck OBJECTIVE: Ofirmev x 1 for pain Chest tube to water seal Vital Signs Period Temp Pulse Resp BP Sys/Valentino Pulse Ox Last 24 Hr 97.8 F-98.7 F 81-117 18-22 100-150/46-90 96-100 GENERAL: Awake, alert, and fully oriented, in no acute distress. HEAD: Normal with no signs of trauma. EYES: Pupils equal, round and reactive to light, extraocular movements intact, sclera anicteric, conjunctiva clear. No lid lag. EARS, NOSE, THROAT: Ears normal, nares patent, oropharynx clear without exudates. Moist mucous membranes. NECK: Normal range of motion, supple without lymphadenopathy, JVD, or masses. LUNGS: anterior breath sounds clear to auscultation, right pig tail with chest tube s/p VATS procedure - now to water seal HEART: Regular rate and rhythm on telemetry monitor ABDOMEN: Soft, nontender, not distended, normoactive bowel sounds, MUSCULOSKELETAL: Normal range of motion at all joints. No bony deformities or tenderness. UPPER EXTREMITIES: No peripheral edema. LOWER EXTREMITIES: No peripheral edema. NEUROLOGICAL: Normal speech. Gait not observed PSYCHIATRIC: Cooperative. Good eye contact. Appropriate mood and affect. SKIN: Right pig tail to chest tube s/p VATS procedure Laboratory Results - last 24 hr 06/19/17 06/19/17 09:40 09:40 WBC 7.8 RBC 2.56 L Hgb 8.7 L Hct 25.5 L MCV 99.7 H MCH 33.8 H MCHC 33.9 RDW 17.2 H Plt Count 112 L MPV 9.3 Neutrophils % 83.0 H Lymphocytes % 12.5 D Monocytes % 1.5 L Eosinophils % 2.8 D Basophils % 0.2 Sodium 143 Potassium 3.5 Chloride 105 Carbon Dioxide 29 Anion Gap 9 BUN 11 Creatinine 0.4 L Creat Clearance w eGFR > 60 Random Glucose 97 Calcium 7.6 L Magnesium 2.1 Total Bilirubin 1.0 AST 204 H ALT 163 H Alkaline Phosphatase 89 Total Protein 5.6 L Albumin 2.5 L Active Medications Generic Name Dose Route Start Last Admin Trade Name Freq PRN Reason Stop Dose Admin Acetaminophen 650 mg 06/18/17 17:42 06/18/17 21:56 Tylenol - PO 650 mg Q6H PRN Administration PAIN LEVEL 7 - 10 Albuterol/Ipratropium 1 amp 06/18/17 17:42 Duoneb - NEB Q4H PRN SHORTNESS OF BREATH Amitriptyline HCl 25 mg 06/18/17 22:00 06/18/17 21:55 Elavil - PO 25 mg HS NICKOLAS Administration Benzocaine/Menthol 1 each 06/18/17 17:42 Cepacol Lozenge - MM PRN PRN SORE THROAT Docusate Sodium 100 mg 06/18/17 22:00 06/19/17 10:39 Colace - PO 100 mg BID N[facility]OLAS Administration Folic Acid 1 mg 06/19/17 10:00 06/19/17 10:39 Folic Acid - PO 1 mg DAILY N[facility] Administration Heparin Sodium (Porcine) 5,000 unit 06/18/17 22:00 06/19/17 10:38 Heparin - SQ 5,000 unit BID NICKOLAS Administration Ipratropium [place] 1 amp 06/18/17 20:00 06/19/17 07:40 Atrovent 0.02% Nebulizer - NEB 06/21/17 16:01 1 amp RQID [facility] Administration Levothyroxine Sodium 125 mcg 06/19/17 07:00 06/19/17 06:22 Synthroid - PO 125 mcg DAILY@0700 [facility] Administration Methotrexate 22.5 mg 06/23/17 10:00 Mexate - PO Tu@1000 [facility] Multivitamins/Minerals/Vitamin C 1 tab 06/19/17 10:00 06/19/17 10:39 Tab-A-Vit - PO 1 tab DAILY N[facility]AS Administration Pantoprazole Sodium 40 mg 06/19/17 10:00 06/19/17 10:38 Protonix - PO 40 mg DAILY N[facility]AS Administration Senna 2 tab 06/18/17 22:00 Senna - PO HS PRN CONSTIPATION ASSESSMENT/PLAN: Patient is a 77 year old female with a significant past medical history of autoimmune thyroiiditis, osteoarthritis, essential (primary) hypertension, rheumatoid arthritis, radha danlos syndrome, former smoker. Patient is s/p bronchoscopy, VATS with extensive pneumolysis, right upper lobe wedge, mediastinal lymph node sampling with Dr. Chambers. Pathology: RUL wedge, frozen section: positive for non small carcinoma Pulmonary: s/p bronchoscopy/VATS on 06/15/2017 RUL wedge resection with squamous cell lung cancer Chest tube to water seal, to be removed today by surgery Chest xray for a.m. to monitor Monitor respiratory status Allbuterol prn On supplemental oxygen @ 2-3 liters Followed by oncology for further treatment options Cardiology Hypertension, chronic On Lisinopril Endocrine Rheumatoid arthritis On Methotraxtate Hypothyroidism On Syntrhoid daily Vocal cord paralysis Seen by speech and swallow, on dysphagia diet F.E.N. Fluids: PO adequate Electrolytes: monitor with a.m labs Nutrition: dysphasia diet Prophylaxis: DVT: SCDs GI: Pepcid Disposition: full code.
[2017-06-19] MEDS ORDERED: ACETAMINOPHEN 1000 MG/100 ML VIAL (NON FORMULARY) IVPB ONE (11:53)
--- NOTE | 2017-06-19 12:27 | PN ---
Progress Note (short form) - Note Progress Note: PULMONARY VSS/AFEBRILE OOB TO CHAIR RIGHT CT IN PLACE ANICTERIC DIMINISHED BREATH SOUNDS RIGHT BASE S1S2 BS+ NO EDEMA IMAGES/NOTES REVIEWED Squamous Cell Ca Lung with clear margins of resected tumor and one benign LN s/p R VATS/pneumolysis/wedge resection/mediastinal lymph node sampling Lorenza Danlos Syndrome h/o Autoimmune Thyroiditis Rheumatoid Arthritis HTN - pain control - incentive spirometry - inhaled bronchodilators - O2 as needed - monitor chest tube output - PO as tolerated - OOB to chair - DVT prophylaxis Kashif KATE MD
--- NOTE | 2017-06-19 13:10 | PN ---
Progress Note, [employer] - Note Progress Note: Laboratory Tests 06/17/17 06/18/17 05:15 05:00 WBC 9.3 10.4 H Pt doing much better. Good vocal quality. Still on puree/honey thick liquid. Not eating. Hates the food. Still with vocal wetness, throat clearing on thin liquid today. REC: Trial of Dys ground with 1-2 soft items [place] liquid If cough, throat clear, congestion, downgrade diet. MBS can not be done today as she has a chest tube in place Thursday, MBS to r/o silent aspiration and upgrade diet with safety
--- NOTE | 2017-06-19 16:55 | PN ---
Progress Note (short form) - Note Progress Note: PAtient seen and examined She is aware of her diagnosed squamous cell cancer Last Vital Signs Temp Pulse Resp BP Pulse Ox 98.5 F 111 H 20 133/97 97 06/19/17 15:45 06/19/17 15:45 06/19/17 15:45 06/19/17 15:45 06/19/17 10:00 Cor: RSR, No murmurs, No gallops Lungs: Clear to P&A Abd: Soft, Normal bowel sounds, No organomegaly Ext:No significant edema Abnormal Lab Results 06/19/17 06/19/17 09:40 09:40 RBC 2.56 L Hgb 8.7 L Hct 25.5 L MCV 99.7 H MCH 33.8 H RDW 17.2 H Plt Count 112 L Neutrophils % 83.0 H Monocytes % 1.5 L Creatinine 0.4 L Calcium 7.6 L AST 204 H ALT 163 H Total Protein 5.6 L Albumin 2.5 L Home Medication List Medication Instructions Recorded Confirmed Type Folic Acid 1 mg PO DAILY 04/03/15 06/15/17 History Levothyroxine [Synthroid -] 0.125 mcg PO DAILY 04/03/15 06/15/17 History Methotrexate Sodium [Methotrexate] 22.5 mg PO WEEKLY 04/03/15 06/15/17 History Naproxen Sodium [Naproxen Sodium 500 mg PO PRN PRN 04/03/15 06/15/17 History ER] Sulfasalazine [Azulfidine] 1,000 mg PO BID 04/03/15 06/15/17 History Amitriptyline HCl 25 mg PO PRN PRN 06/11/17 06/15/17 History Lisinopril/Hydrochlorothiazide 1 each PO DAILY 06/11/17 06/15/17 History [Lisinopril-Hctz 20-12.5 mg Tab] Multivitamin [One Daily] 1 each PO DAILY 06/11/17 06/15/17 History Active Medications Generic Name Dose Route Start Last Admin Trade Name Freq PRN Reason Stop Dose Admin Acetaminophen 650 mg 06/18/17 17:42 06/18/17 21:56 Tylenol - PO 650 mg Q6H PRN Administration PAIN LEVEL 7 - 10 Albuterol/Ipratropium 1 amp 06/18/17 17:42 Duoneb - NEB Q4H PRN SHORTNESS OF BREATH Amitriptyline HCl 25 mg 06/18/17 22:00 06/18/17 21:55 Elavil - PO 25 mg HS N[facility]OLAS Administration Benzocaine/Menthol 1 each 06/18/17 17:42 Cepacol Lozenge - MM PRN PRN SORE THROAT Docusate Sodium 100 mg 06/18/17 22:00 06/19/17 10:39 Colace - PO 100 mg BID [facility] Administration Folic Acid 1 mg 06/19/17 10:00 06/19/17 10:39 Folic Acid - PO 1 mg DAILY [facility] Administration Heparin Sodium (Porcine) 5,000 unit 06/18/17 22:00 06/19/17 10:38 Heparin - SQ 5,000 unit BID [facility] Administration Ipratropium [place] 1 amp 06/18/17 20:00 06/19/17 11:50 Atrovent 0.02% Nebulizer - NEB 06/21/17 16:01 1 amp RQID [facility] Administration Levothyroxine Sodium 125 mcg 06/19/17 07:00 06/19/17 06:22 Synthroid - PO 125 mcg DAILY@0700 [facility] Administration Methotrexate 22.5 mg 06/23/17 10:00 Mexate - PO Tu@1000 [facility] Multivitamins/Minerals/Vitamin C 1 tab 06/19/17 10:00 06/19/17 10:39 Tab-A-Vit - PO 1 tab DAILY [facility] Administration Pantoprazole Sodium 40 mg 06/19/17 10:00 06/19/17 10:38 Protonix - PO 40 mg DAILY [facility] Administration Senna 2 tab 06/18/17 22:00 Senna - PO HS PRN CONSTIPATION A/P 77 y/o woman with HTN, autoimmune thyroiditis, osteoarthritis, rheumatoid arthritis, and radha danlos syndrome, osteopenia, vertebral T12, L1 fractures. Pt was found to have PET-avid RUL nodule. She underwent bronch, VATS, extensive pneumolysis, RUL wedge resection and mediastinal lymph node sampling by Dr. Chambers on 06/15. Bronch showed no obvious airway lesions and VATS notable for extensive adhesions which were lysed, more than half of RUL moved, chest tube placed. RUL wedge resection --squamous cell lung cancer. margins negative. negative mediastinal node. T1b , N0 satge Stage IA squamous cell lung cancer adjuvant chemotherapy not indicated for stage IA disease will need surveillance CT scans will discuss with CT surgery will discuss with ENT Dr. Conrad ( lt. vocal cord paralysis)
[2017-06-19] MEDS: AMITRIPTYLINE HCL 25 MG TABLET (FP) PO SCH (21:28)
[2017-06-20] MEDS ORDERED: PT OWN MED DRAWER 7, Y5N ONE ×2 (05:27→09:13)
[2017-06-20] MEDS: LEVOTHYROXINE NA 125 MCG TABLET (FP) PO SCH (06:45)
[2017-06-20 08:16] LABS: CHLORIDE 105 mmol/L (98-107); POTASSIUM 3.7 mmol/L (3.5-5.1); SODIUM 143 mmol/L (136-145)
[2017-06-20 08:22] LABS: ALBUMIN 2.4 g/dl (3.4-5.0); ALK PHOS 108 U/L (45-117); ANION GAP 8 (8-16); BILIRUBIN,TOTAL 0.7 mg/dL (0.2-1.0); BLOOD UREA NITROGEN 14 mg/dL (7-18); CALCIUM 7.7 mg/dL (8.5-10.1); CO2 30 mmol/L (21-32); CREATININE 0.4 mg/dL (0.55-1.02); GLUCOSE,RANDOM 79 mg/dL (74-106); SGOT/AST 162 U/L (15-37); SGPT/ALT 172 U/L (12-78); TOT PROT 5.6 g/dl (6.4-8.2)
[2017-06-20 08:24] LABS: BASO % 0.3 % (0-2.0); EOS % 3.9 % (0-4.5); HEMATOCRIT 24.8 % (32.4-45.2); HEMOGLOBIN 8.3 GM/dL (10.7-15.3); LYMPH % 18.4 % (8-40); MCH 33.4 pg (25.7-33.7); MCHC 33.4 g/dl (32.0-36.0); MEAN CELL VOLUME 100.1 fl (80-96); MEAN PLT VOLUME 9.5 fl (7.5-11.1); MONO % 2.4 % (3.8-10.2); PLATELET COUNT 113 K/MM3 (134-434); RBC 2.48 M/mm3 (3.60-5.2); RDW 17.5 % (11.6-15.6); WHITE BLOOD COUNT 7.2 K/mm3 (4.0-10.0)
--- NOTE | 2017-06-20 09:02 | PN ---
Progress Note (short form) - Note Progress Note: Thoracic Surgery: Doing well. Needs to ambulate more. Wean oxygen. Plan for discharge per medicine team. Daily CXR until discharge.
[2017-06-20] MEDS: BENZOCAINE/MENTH/CETYLPYRD CL 1 EACH LOZENGE MM PRN (09:16)
[2017-06-20] MEDS: IPRATROPIUM BR 0.02% 0.5 MG/2.5 ML VIAL.NEB. NEB SCH ×4 (09:20→20:50)
[2017-06-20] MEDS: MULTIVITAMINS (DAILY MVI) TABLET (FP) PO SCH (09:53)
[2017-06-20] MEDS: FOLIC ACID 1 MG TABLET (FP) PO SCH (09:53)
[2017-06-20] MEDS: PANTOPRAZOLE 40 MG TABLET (FP) PO SCH (09:53)
[2017-06-20] MEDS: HEPARIN NA (PORCINE) 5,000 UNITS/ML 1ML VIAL SQ SCH ×2 (09:53→21:26)
[2017-06-20] MEDS: DOCUSATE SODIUM 100 MG CAPSULE (FP) PO SCH ×2 (09:54→21:25)
--- NOTE | 2017-06-20 10:40 | PN ---
Progress Note (short form) - Note Progress Note: No acute events overnight. No CP or SOB. Seen by CTS this AM. CXR post CT removal possible minimal Right PTX Intake & Output 06/17/17 06/18/17 06/19/17 06/20/17 23:59 23:59 23:59 23:59 Intake Total 1210 500 300 100 Output Total 630 30 30 Balance 580 470 270 100 Weight 110 lb 6 oz 110 lb 5 oz 105 lb 12.8 oz Last Vital Signs Temp Pulse Resp BP Pulse Ox 98.6 F 96 H 20 137/63 99 06/20/17 04:00 06/20/17 04:00 06/20/17 04:00 06/20/17 04:00 06/19/17 21:00 Active Medications Acetaminophen (Tylenol -) 650 mg PO Q6H PRN PRN Reason: PAIN LEVEL 7 - 10 Last Admin: 06/18/17 21:56 Dose: 650 mg Albuterol/Ipratropium (Duoneb -) 1 amp NEB Q4H PRN PRN Reason: SHORTNESS OF BREATH Amitriptyline HCl (Elavil -) 25 mg PO HS [facility] Last Admin: 06/19/17 21:28 Dose: 25 mg Benzocaine/Menthol (Cepacol Lozenge -) 1 each MM PRN PRN PRN Reason: SORE THROAT Last Admin: 06/20/17 09:16 Dose: 1 each Docusate Sodium (Colace -) 100 mg PO BID [facility] Last Admin: 06/20/17 09:54 Dose: 100 mg Folic Acid (Folic Acid -) 1 mg PO DAILY [facility] Last Admin: 06/20/17 09:53 Dose: 1 mg Heparin Sodium (Porcine) (Heparin -) 5,000 unit SQ BID [facility] Last Admin: 06/20/17 09:53 Dose: 5,000 unit Ipratropium [place] (Atrovent 0.02% Nebulizer -) 1 amp NEB RQID [facility] Stop: 06/21/17 16:01 Last Admin: 06/20/17 09:20 Dose: 1 amp Levothyroxine Sodium (Synthroid -) 125 mcg PO DAILY@0700 [facility] Last Admin: 06/20/17 06:45 Dose: 125 mcg Methotrexate (Mexate -) 22.5 mg PO Tu@1000 [facility] Multivitamins/Minerals/Vitamin C (Tab-A-Vit -) 1 tab PO DAILY [facility] Last Admin: 06/20/17 09:53 Dose: 1 tab Pantoprazole Sodium (Protonix -) 40 mg PO DAILY [facility] Last Admin: 06/20/17 09:53 Dose: 40 mg Senna (Senna -) 2 tab PO HS PRN PRN Reason: CONSTIPATION Constitutional: Yes: Calm, Thin Eyes: Yes: WNL HENT: Yes: WNL Neck: Yes: WNL Cardiovascular: Yes: Regular Rate and Rhythm, S1, S2 Respiratory: Yes: Diminished Gastrointestinal: Yes: Normal Bowel Sounds, Soft Extremities: Yes: WNL Edema: No Labs: Laboratory Results - last 24 hr 06/19/17 06/19/17 06/20/17 09:40 09:40 06:18 WBC 7.8 7.2 RBC 2.56 L 2.48 L Hgb 8.7 L 8.3 L Hct 25.5 L 24.8 L MCV 99.7 H 100.1 H MCH 33.8 H 33.4 MCHC 33.9 33.4 RDW 17.2 H 17.5 H Plt Count 112 L 113 L MPV 9.3 9.5 Neutrophils % 83.0 H 75.0 Lymphocytes % 12.5 D 18.4 D Monocytes % 1.5 L 2.4 L Eosinophils % 2.8 D 3.9 Basophils % 0.2 0.3 Sodium 143 Potassium 3.5 Chloride 105 Carbon Dioxide 29 Anion Gap 9 BUN 11 Creatinine 0.4 L Creat Clearance w eGFR > 60 Random Glucose 97 Calcium 7.6 L Magnesium 2.1 Total Bilirubin 1.0 AST 204 H ALT 163 H Alkaline Phosphatase 89 Total Protein 5.6 L Albumin 2.5 L 06/20/17 06:18 WBC RBC Hgb Hct MCV MCH MCHC RDW Plt Count MPV Neutrophils % Lymphocytes % Monocytes % Eosinophils % Basophils % Sodium 143 Potassium 3.7 Chloride 105 Carbon Dioxide 30 Anion Gap 8 BUN 14 Creatinine 0.4 L Creat Clearance w eGFR > 60 Random Glucose 79 Calcium 7.7 L Magnesium Total Bilirubin 0.7 D AST 162 H ALT 172 H Alkaline Phosphatase 108 Total Protein 5.6 L Albumin 2.4 L Problem List - Problems (1) Lung cancer Code(s): C34.90 - MALIGNANT NEOPLASM OF UNSP PART OF UNSP BRONCHUS OR LUNG (2) Autoimmune thyroiditis Code(s): E06.3 - AUTOIMMUNE THYROIDITIS (3) Lorenza-Danlos syndrome Code(s): Q79.6 - LORENZA-DANLOS SYNDROME (4) Hypertension Code(s): I10 - ESSENTIAL (PRIMARY) HYPERTENSION (5) Lung nodule Code(s): R91.1 - SOLITARY PULMONARY NODULE (6) Rheumatoid arthritis Code(s): M06.9 - RHEUMATOID ARTHRITIS, UNSPECIFIED Assessment/Plan ASSESSMENT AND PLAN: Squamous Cell Ca s/p R VATS/pneumolysis/wedge resection/mediastinal lymph node sampling Lorenza Danlos Syndrome h/o Autoimmune Thyroiditis Rheumatoid Arthritis HTN - incentive spirometry - inhaled bronchodilators - O2 as needed - As she is stable no need to repeat CXR at this point - OOB to chair - DVT prophylaxis - D/C planning Dr Maza
[2017-06-20] MEDS ORDERED: NYSTATIN 500,000 UNITS/5 ML SUSPENSION PO PRN (10:51)
--- NOTE | 2017-06-20 11:32 | OP ---
DATE OF OPERATION: 06/15/2017 PREOPERATIVE DIAGNOSIS: Lung nodule. POSTOPERATIVE DIAGNOSIS: Lung cancer. SURGEON: Sly Chambers MD CO-SURGEON: Edwar Pizarro MD I was present as co-surgeon as there was no available fellow or qualified speech language pathologist assistant for Dr. Chambers. I performed this procedure as co-surgeon. INDICATIONS: A 77-year-old female with emphysematous lungs found to have a right upper lobe nodule. Patient discussed different treatment options with Dr. Chambers's team and consented for surgery. The patient was brought in surgery. Risks, benefits, and alternative treatments were presented to patient, and she accepted the surgery. PROCEDURE IN DETAIL: The patient was brought into the operating room and was placed in a supine position. IV access was done by anesthesiologist. Arterial line was placed by anesthesiologist. Bronchoscopy was performed. No intrabronchial lesions. Hereafter, the patient was intubated with a double-lumen tube, and positioning was confirmed using scope using a bronchoscope. The patient was placed in a left lateral decubitus position right side up flexed position. Prepped and draped in sterile fashion. A was applied to this patient. Scope was inserted into the pleural cavity. Massive adhesions, lysis of adhesions were performed in the right lower lobe and right upper lobe. Right upper lobe was hereafter isolated. Deep wedge resection was performed containing the nodule. Frozen section revealed squamous cell carcinoma. A level 4 lymph node was harvested, sampled, and sent for permanent. Hemostasis was secured. A 28-[place] chest tube was placed apical posterior. Dr. Chambers and I performed the procedure as dictated above. We were in the OR during the whole procedure and remained available after. Skin was closed in layers, 0 Vicryl level at the level of the fascia, 2-0 Vicryl at the level of the subcutaneous tissue, and 3-0 Monocryl at the level of the skin. EDWAR CHU M.D. [id number]
[2017-06-20] MEDS: ACETAMINOPHEN 325 MG TABLET (FP) PO PRN (17:00)
[2017-06-20] MEDS ORDERED: VANCOMYCIN 900 MG in DEXTROSE 5%-WATER - 250 ML IVPB ONE (17:59)
[2017-06-20] MEDS ORDERED: PIPERACILLIN/TAZOB 3.375 GM 50 ML IVPB ONE (18:00)
--- NOTE | 2017-06-20 18:08 | PN ---
Progress Note (short form) - Note Progress Note: Subjective: The patient was seen and examined at the bedside, she denies any chills today. She denies any chest pain. Tachycardia, f/u EKG Fever 102.8, send cultures Current Medications Generic Name Dose Route Start Last Admin Trade Name Freq PRN Reason Stop Dose Admin Acetaminophen 650 mg 06/18/17 17:42 06/20/17 17:00 Tylenol - PO 650 mg Q6H PRN Administration PAIN LEVEL 7 - 10 Albuterol/Ipratropium 1 amp 06/18/17 17:42 Duoneb - NEB Q4H PRN SHORTNESS OF BREATH Amitriptyline HCl 25 mg 06/18/17 22:00 06/19/17 21:28 Elavil - PO 25 mg HS NICKOLAS Administration Benzocaine/Menthol 1 each 06/18/17 17:42 06/20/17 09:16 Cepacol Lozenge - MM 1 each PRN PRN Administration SORE THROAT Docusate Sodium 100 mg 06/18/17 22:00 06/20/17 09:54 Colace - PO 100 mg BID NICKOLAS Administration Folic Acid 1 mg 06/19/17 10:00 06/20/17 09:53 Folic Acid - PO 1 mg DAILY NICKOLAS Administration Heparin Sodium (Porcine) 5,000 unit 06/18/17 22:00 06/20/17 09:53 Heparin - SQ 5,000 unit BID NICKOLAS Administration Ipratropium [place] 1 amp 06/18/17 20:00 06/20/17 16:45 Atrovent 0.02% Nebulizer - NEB 06/21/17 16:01 1 amp RQID NICKOLAS Administration Levothyroxine Sodium 125 mcg 06/19/17 07:00 06/20/17 06:45 Synthroid - PO 125 mcg DAILY@0700 NICKOLAS Administration Methotrexate 22.5 mg 06/23/17 10:00 Mexate - PO Tu@1000 NICKOLAS Multivitamins/Minerals/Vitamin C 1 tab 06/19/17 10:00 06/20/17 09:53 Tab-A-Vit - PO 1 tab DAILY NICKOLAS Administration Nystatin 500,000 units 06/20/17 10:51 Nystatin Oral Suspension - PO Q6HPO PRN ORAL PAIN/MOUTH SORES Pantoprazole Sodium 40 mg 06/19/17 10:00 06/20/17 09:53 Protonix - PO 40 mg DAILY NICKOLAS Administration Senna 2 tab 06/18/17 22:00 Senna - PO HS PRN CONSTIPATION Objective: Vital Signs Period Temp Pulse Resp BP Sys/Valentino Pulse Ox Last 24 Hr 98.5 F-102.8 F 96-130 20-20 128-157/63-87 98-99 Physical Exam: General: NAD, A&Ox3 Lungs: Decreased breath sounds bilaterally Heart: Tachycardia, S1S2 Abd: Soft, non-tender, non-distended. Normoactive bowel sounds Ext: Warm, well-perfused. 2+ DP/PT bilaterally CBCD WBC 7.2 K/mm3 (4.0-10.0) 06/20/17 06:18 RBC 2.48 M/mm3 (3.60-5.2) L 06/20/17 06:18 Hgb 8.3 GM/dL (10.7-15.3) L 06/20/17 06:18 Hct 24.8 % (32.4-45.2) L 06/20/17 06:18 MCV 100.1 fl (80-96) H 06/20/17 06:18 MCHC 33.4 g/dl (32.0-36.0) 06/20/17 06:18 RDW 17.5 % (11.6-15.6) H 06/20/17 06:18 Plt Count 113 K/MM3 (134-434) L 06/20/17 06:18 MPV 9.5 fl (7.5-11.1) 06/20/17 06:18 CMP Sodium 143 mmol/L (136-145) 06/20/17 06:18 Potassium 3.7 mmol/L (3.5-5.1) 06/20/17 06:18 Chloride 105 mmol/L (98-107) 06/20/17 06:18 Carbon Dioxide 30 mmol/L (21-32) 06/20/17 06:18 Anion Gap 8 (8-16) 06/20/17 06:18 BUN 14 mg/dL (7-18) 06/20/17 06:18 Creatinine 0.4 mg/dL (0.55-1.02) L 06/20/17 06:18 Creat Clearance w eGFR > 60 (>60) 03/17/18 06:18 Random Glucose 79 mg/dL (74-106) 06/20/17 06:18 Calcium 7.7 mg/dL (8.5-10.1) L 06/20/17 06:18 Total Bilirubin 0.7 mg/dL (0.2-1.0) D 06/20/17 06:18 AST 162 U/L (15-37) H 06/20/17 06:18 ALT 172 U/L (12-78) H 06/20/17 06:18 Alkaline Phosphatase 108 U/L (45-117) 06/20/17 06:18 Total Protein 5.6 g/dl (6.4-8.2) L 06/20/17 06:18 Albumin 2.4 g/dl (3.4-5.0) L 06/20/17 06:18 Microbiology 06/15/17 12:35 Lung - Right Upper Lobe AFB Smear Concentration - Final 06/15/17 12:35 Lung - Right Upper Lobe Mycobacterial Culture - Preliminary 06/15/17 12:35 Lung - Right Upper Lobe Gram Stain - Final 06/15/17 12:35 Lung - Right Upper Lobe Tissue Culture - Final NO GROWTH OF AEROBIC ORGANISMS AFTER 48 HOURS INCUBATION 06/15/17 12:35 Lung - Right Upper Lobe Anaerobic Culture - Final NO ANAEROBES WERE ISOLATED 06/15/17 12:35 Lung - Right Upper Lobe YONI Preparation - Preliminary 06/15/17 12:35 Lung - Right Upper Lobe Fungal Culture - Preliminary Assessment: This is a 77 year old female with PMHx of autoimmune thyroiditis, osteoarthritis, HTN, radha danlos syndrome, former smoker, who was admitted s/ p bronchoscopy, VATS with chest tube placement Plan: 1) S/p bronch/VATS 06/15/17 - Chest tube removed yesterday - Now with fever, tmax 102.8. Patient is not using incentive spirometer. Chest X -ray reviewed, cultures drawn. Will cover with Zosyn and Vanco given recent procedure. F/u ID consult - Appreciate CT surgery consult - Appreciate pulmonary consult 2) Squamous cell lung cancer - Stage IA - Will need surveillance CT scans 3) Vocal cord paralysis - Appreciate speech and swallow evaluation - Dysphagia diet - MBS on Thursday 4) Autoimmune thyroiiditis - Continue Synthroid 5) F/E/N: - As above 6) Prophylaxis: - Heparin 5,000u sq bid 7) Dispo: - Requires continued inpatient care CODE STATUS: FULL CODE Visit type - Emergency Visit Emergency Visit: Yes ED Registration Date: 06/15/17 Care time: The patient presented to the Emergency Department on the above date and was hospitalized for further evaluation of their emergent condition. - New Patient This patient is new to me today: Yes Date on this admission: 06/20/17 - Critical Care Critical Care patient: No
[2017-06-20] MEDS ORDERED: VANCOMYCIN 1,000 MG in DEXTROSE 5%-WATER - 250 ML IVPB ONE (19:02)
[2017-06-20] MEDS ORDERED: PIPERACILLIN/TAZOB 3.375 GM 3.375 GM in DEXTROSE 5%-WATER - 50 ML IVPB ONE (19:02)
[2017-06-20 20:55] LABS: URINE APPEARANCE TURBID; URINE BILIRUBIN NEGATIVE (NEGATIVE); URINE BLOOD 1+ (NEGATIVE); URINE COLOR AMBER; URINE GLUCOSE (UA) NEGATIVE (NEGATIVE); URINE KETONE NEGATIVE (NEGATIVE); URINE NITRITE NEGATIVE (NEGATIVE); URINE UROBILINOGEN NEGATIVE mg/dL (0.2-1.0)
[2017-06-20 21:08] LABS: URINE LEUK ESTERASE 3+ (NEGATIVE); URINE PROTEIN 1+ (NEGATIVE)
[2017-06-20 21:09] LABS: URINE BACTERIA MANY /hpf (NONE SEEN); URINE MUCUS MANY
[2017-06-20] MEDS: AMITRIPTYLINE HCL 25 MG TABLET (FP) PO SCH (21:26)
[2017-06-21] MEDS: LEVOTHYROXINE NA 125 MCG TABLET (FP) PO SCH (06:00)
[2017-06-21] MEDS: BENZOCAINE/MENTH/CETYLPYRD CL 1 EACH LOZENGE MM PRN (06:25)
[2017-06-21] MEDS: IPRATROPIUM BR 0.02% 0.5 MG/2.5 ML VIAL.NEB. NEB SCH ×3 (08:00→17:05)
[2017-06-21 08:45] LABS: BASO % 0.4 % (0-2.0); EOS % 3.4 % (0-4.5); HEMATOCRIT 23.6 % (32.4-45.2); HEMOGLOBIN 7.9 GM/dL (10.7-15.3); LYMPH % 15.5 % (8-40); MCH 33.5 pg (25.7-33.7); MCHC 33.5 g/dl (32.0-36.0); MEAN CELL VOLUME 99.8 fl (80-96); MEAN PLT VOLUME 8.7 fl (7.5-11.1); MONO % 4.3 % (3.8-10.2); NEUT % 76.4 % (42.8-82.8); PLATELET COUNT 98 K/MM3 (134-434); RBC 2.36 M/mm3 (3.60-5.2); WHITE BLOOD COUNT 6.7 K/mm3 (4.0-10.0)
--- NOTE | 2017-06-21 08:49 | PN ---
Progress Note (short form) - Note Progress Note: ID 6 days out from thoracotomy VAT with new diagnosis of lung CA asked to see for 102 fever Chest tubes removed Selected Entries 06/20/17 06/21/17 17:00 05:50 Temperature 102.8 F H 98.1 F Pulse Rate 130 H 87 Respiratory 20 20 Rate Blood Pressure 154/84 140/65 Lung Bilateral rales Diminished BS Chest tube site no purulence or redness Microbiology Laboratory Tests 06/20/17 06/20/17 06/20/17 06:18 06:18 08:20 WBC 7.2 RBC 2.48 L Hct 24.8 L Plt Count 113 L Anion Gap 8 BUN 14 Ur Leukocyte Esterase 3+ H Urine WBC (Auto) 853 Urine RBC (Auto) 68 06/21/17 08:20 WBC RBC Hct Plt Count Anion Gap Pending BUN Pending Ur Leukocyte Esterase Urine WBC (Auto) Urine RBC (Auto) Assesment Suspect fever secondary UTI Plan Ceftriaxone 1 gram daily pending c/s Brandon GEE Problem List - Problems (1) Fever Code(s): R50.9 - FEVER, UNSPECIFIED (2) Lung cancer Code(s): C34.90 - MALIGNANT NEOPLASM OF UNSP PART OF UNSP BRONCHUS OR LUNG (3) UTI (urinary tract infection) Code(s): N39.0 - URINARY TRACT INFECTION, SITE NOT SPECIFIED
[2017-06-21 09:12] LABS: ALBUMIN 2.3 g/dl (3.4-5.0); ANION GAP 8 (8-16); BILIRUBIN,TOTAL 0.7 mg/dL (0.2-1.0); BLOOD UREA NITROGEN 12 mg/dL (7-18); CALCIUM 7.5 mg/dL (8.5-10.1); CHLORIDE 104 mmol/L (98-107); CO2 31 mmol/L (21-32); CREATININE 0.3 mg/dL (0.55-1.02); GLUCOSE,RANDOM 83 mg/dL (74-106); POTASSIUM 3.7 mmol/L (3.5-5.1); SGOT/AST 55 U/L (15-37); SGPT/ALT 109 U/L (12-78); SODIUM 143 mmol/L (136-145); TOT PROT 5.5 g/dl (6.4-8.2)
[2017-06-21 09:13] LABS: ALK PHOS 103 U/L (45-117)
[2017-06-21] MEDS: PANTOPRAZOLE 40 MG TABLET (FP) PO SCH (09:25)
[2017-06-21] MEDS: DOCUSATE SODIUM 100 MG CAPSULE (FP) PO SCH ×2 (09:25→21:57)
[2017-06-21] MEDS: MULTIVITAMINS (DAILY MVI) TABLET (FP) PO SCH (09:25)
[2017-06-21] MEDS: HEPARIN NA (PORCINE) 5,000 UNITS/ML 1ML VIAL SQ SCH ×2 (09:25→21:58)
[2017-06-21] MEDS: FOLIC ACID 1 MG TABLET (FP) PO SCH (09:25)
[2017-06-21] MEDS ORDERED: cefTRIAXone SODIUM 1 GM VIAL ONE (09:42)
[2017-06-21] MEDS ORDERED: DEXTROSE 5%-WATER - 50 ML IVPB ONE (09:42)
[2017-06-21] MEDS: CEFTRIAXONE 1 GM in DEXTROSE 5%-WATER - 50 ML IVPB SCH (09:52)
--- NOTE | 2017-06-21 11:00 | PN ---
Progress Note (short form) - Note Progress Note: Subjective: The patient was seen and examined at the bedside, she reports feeling better today Current Medications Generic Name Dose Route Start Last Admin Trade Name Freq PRN Reason Stop Dose Admin Acetaminophen 650 mg 06/18/17 17:42 06/20/17 17:00 Tylenol - PO 650 mg Q6H PRN Administration PAIN LEVEL 7 - 10 Albuterol/Ipratropium 1 amp 06/18/17 17:42 Duoneb - NEB Q4H PRN SHORTNESS OF BREATH Amitriptyline HCl 25 mg 06/18/17 22:00 06/20/17 21:26 Elavil - PO 25 mg HS NICKOLAS Administration Benzocaine/Menthol 1 each 06/18/17 17:42 06/21/17 06:25 Cepacol Lozenge - MM 1 each PRN PRN Administration SORE THROAT Docusate Sodium 100 mg 06/18/17 22:00 06/21/17 09:25 Colace - PO 100 mg BID NICKOLAS Administration Folic Acid 1 mg 06/19/17 10:00 06/21/17 09:25 Folic Acid - PO 1 mg DAILY NICKOLAS Administration Heparin Sodium (Porcine) 5,000 unit 06/18/17 22:00 06/21/17 09:25 Heparin - SQ 5,000 unit BID NICKOLAS Administration Ceftriaxone Sodium 1 gm/ 50 mls @ 100 mls/hr 06/21/17 10:00 06/21/17 09:52 Dextrose IVPB 100 mls/hr DAILY NICKOLAS Administration Ipratropium [place] 1 amp 06/18/17 20:00 06/21/17 08:00 Atrovent 0.02% Nebulizer - NEB 06/21/17 16:01 1 amp RQID NICKOLAS Administration Levothyroxine Sodium 125 mcg 06/19/17 07:00 06/21/17 06:00 Synthroid - PO 125 mcg DAILY@0700 NICKOLAS Administration Methotrexate 22.5 mg 06/23/17 10:00 Mexate - PO Tu@1000 NICKOLAS Multivitamins/Minerals/Vitamin C 1 tab 06/19/17 10:00 06/21/17 09:25 Tab-A-Vit - PO 1 tab DAILY NICKOLAS Administration Nystatin 500,000 units 06/20/17 10:51 Nystatin Oral Suspension - PO Q6HPO PRN ORAL PAIN/MOUTH SORES Pantoprazole Sodium 40 mg 06/19/17 10:00 06/21/17 09:25 Protonix - PO 40 mg DAILY NICKOLAS Administration Senna 2 tab 06/18/17 22:00 Senna - PO HS PRN CONSTIPATION Objective: Vital Signs Period Temp Pulse Resp BP Sys/Valentino Pulse Ox Last 24 Hr 98.1 F-102.8 F 85-130 20-20 140-157/65-87 98 Physical Exam: General: NAD, A&Ox3 Lungs: Decreased breath sounds bilaterally Heart: Tachycardia, S1S2 Abd: Soft, non-tender, non-distended. Normoactive bowel sounds Ext: Warm, well-perfused. 2+ DP/PT bilaterally CBCD WBC 6.7 K/mm3 (4.0-10.0) 06/21/17 08:20 RBC 2.36 M/mm3 (3.60-5.2) L 06/21/17 08:20 Hgb 7.9 GM/dL (10.7-15.3) L 06/21/17 08:20 Hct 23.6 % (32.4-45.2) L 06/21/17 08:20 MCV 99.8 fl (80-96) H 06/21/17 08:20 MCHC 33.5 g/dl (32.0-36.0) 06/21/17 08:20 RDW 18.0 % (11.6-15.6) H 06/21/17 08:20 Plt Count 98 K/MM3 (134-434) L 06/21/17 08:20 MPV 8.7 fl (7.5-11.1) 06/21/17 08:20 CMP Sodium 143 mmol/L (136-145) 06/21/17 08:20 Potassium 3.7 mmol/L (3.5-5.1) 06/21/17 08:20 Chloride 104 mmol/L (98-107) 06/21/17 08:20 Carbon Dioxide 31 mmol/L (21-32) 06/21/17 08:20 Anion Gap 8 (8-16) 06/21/17 08:20 BUN 12 mg/dL (7-18) 06/21/17 08:20 Creatinine 0.3 mg/dL (0.55-1.02) L 06/21/17 08:20 Creat Clearance w eGFR > 60 (>60) 06/21/17 08:20 Random Glucose 83 mg/dL (74-106) 06/21/17 08:20 Calcium 7.5 mg/dL (8.5-10.1) L 06/21/17 08:20 Total Bilirubin 0.7 mg/dL (0.2-1.0) 06/21/17 08:20 AST 55 U/L (15-37) H 06/21/17 08:20 ALT 109 U/L (12-78) H 06/21/17 08:20 Alkaline Phosphatase 103 U/L (45-117) 06/21/17 08:20 Total Protein 5.5 g/dl (6.4-8.2) L 06/21/17 08:20 Albumin 2.3 g/dl (3.4-5.0) L 06/21/17 08:20 Microbiology 06/15/17 12:35 Lung - Right Upper Lobe AFB Smear Concentration - Final 06/15/17 12:35 Lung - Right Upper Lobe Mycobacterial Culture - Preliminary 06/15/17 12:35 Lung - Right Upper Lobe Gram Stain - Final 06/15/17 12:35 Lung - Right Upper Lobe Tissue Culture - Final NO GROWTH OF AEROBIC ORGANISMS AFTER 48 HOURS INCUBATION 06/15/17 12:35 Lung - Right Upper Lobe Anaerobic Culture - Final NO ANAEROBES WERE ISOLATED 06/15/17 12:35 Lung - Right Upper Lobe YONI Preparation - Preliminary 06/15/17 12:35 Lung - Right Upper Lobe Fungal Culture - Preliminary Assessment: This is a 77 year old female with PMHx of autoimmune thyroiditis, osteoarthritis, HTN, radha danlos syndrome, former smoker, who was admitted s/ p bronchoscopy, VATS with chest tube placement Plan: 1) S/p bronch/VATS 06/15/17 - Chest tube removed 06/19 - Tmax 102.8, f/u cultures. Continue Ceftriaxone per ID - Appreciate CT surgery consult - Appreciate pulmonary consult 2) Squamous cell lung cancer - Stage IA - Will need surveillance CT scans 3) Vocal cord paralysis - Appreciate speech and swallow evaluation - Dysphagia diet - MBS on Thursday - F/u ENT consult 4) Autoimmune thyroiiditis - Continue Synthroid 5) F/E/N: - As above 6) Prophylaxis: - Heparin 5,000u sq bid 7) Dispo: - Requires continued inpatient care CODE STATUS: FULL CODE Visit type - Emergency Visit Emergency Visit: Yes ED Registration Date: 06/15/17 Care time: The patient presented to the Emergency Department on the above date and was hospitalized for further evaluation of their emergent condition. - New Patient This patient is new to me today: No - Critical Care Critical Care patient: No
--- NOTE | 2017-06-21 11:04 | PN ---
Progress Note (short form) - Note Progress Note: Breathing feels OK. Some dry cough. No CP. Fever noted. CXR: RLL atelectasis / effusion / no PTX noted Intake & Output 06/18/17 06/19/17 06/20/17 06/21/17 23:59 23:59 23:59 23:59 Intake Total 500 300 450 50 Output Total 30 30 Balance 470 270 450 50 Weight 110 lb 5 oz 110 lb 12.8 oz 113 lb 5 oz Last Vital Signs Temp Pulse Resp BP Pulse Ox 98.1 F 87 20 140/65 98 06/21/17 05:50 06/21/17 05:50 06/21/17 05:50 06/21/17 05:50 06/20/17 21:00 Active Medications Acetaminophen (Tylenol -) 650 mg PO Q6H PRN PRN Reason: PAIN LEVEL 7 - 10 Last Admin: 06/20/17 17:00 Dose: 650 mg Albuterol/Ipratropium (Duoneb -) 1 amp NEB Q4H PRN PRN Reason: SHORTNESS OF BREATH Amitriptyline HCl (Elavil -) 25 mg PO HS [facility] Last Admin: 06/20/17 21:26 Dose: 25 mg Benzocaine/Menthol (Cepacol Lozenge -) 1 each MM PRN PRN PRN Reason: SORE THROAT Last Admin: 06/21/17 06:25 Dose: 1 each Docusate Sodium (Colace -) 100 mg PO BID [facility] Last Admin: 06/21/17 09:25 Dose: 100 mg Folic Acid (Folic Acid -) 1 mg PO DAILY [facility] Last Admin: 06/21/17 09:25 Dose: 1 mg Heparin Sodium (Porcine) (Heparin -) 5,000 unit SQ BID [facility] Last Admin: 06/21/17 09:25 Dose: 5,000 unit Ceftriaxone Sodium 1 gm/ (Dextrose) 50 mls @ 100 mls/hr IVPB DAILY [facility] Last Admin: 06/21/17 09:52 Dose: 100 mls/hr Ipratropium [place] (Atrovent 0.02% Nebulizer -) 1 amp NEB RQID [facility] Stop: 06/21/17 16:01 Last Admin: 06/21/17 08:00 Dose: 1 amp Levothyroxine Sodium (Synthroid -) 125 mcg PO DAILY@0700 [facility] Last Admin: 06/21/17 06:00 Dose: 125 mcg Methotrexate (Mexate -) 22.5 mg PO Tu@1000 [facility] Multivitamins/Minerals/Vitamin C (Tab-A-Vit -) 1 tab PO DAILY [facility] Last Admin: 06/21/17 09:25 Dose: 1 tab Nystatin (Nystatin Oral Suspension -) 500,000 units PO Q6HPO PRN PRN Reason: ORAL PAIN/MOUTH SORES Pantoprazole Sodium (Protonix -) 40 mg PO DAILY [facility] Last Admin: 06/21/17 09:25 Dose: 40 mg Senna (Senna -) 2 tab PO HS PRN PRN Reason: CONSTIPATION Constitutional: Yes: Calm, Thin Eyes: Yes: WNL HENT: Yes: WNL Neck: Yes: WNL Cardiovascular: Yes: Regular Rate and Rhythm, S1, S2 Respiratory: Yes: Right basilar rhonchi, no wheeze Gastrointestinal: Yes: Normal Bowel Sounds, Soft Extremities: Yes: WNL Edema: No Labs: Laboratory Results - last 24 hr 06/20/17 06/21/17 06/21/17 08:20 08:20 08:20 WBC 6.7 RBC 2.36 L Hgb 7.9 L Hct 23.6 L MCV 99.8 H MCH 33.5 MCHC 33.5 RDW 18.0 H Plt Count 98 L MPV 8.7 Neutrophils % 76.4 Lymphocytes % 15.5 Monocytes % 4.3 Eosinophils % 3.4 Basophils % 0.4 Sodium 143 Potassium 3.7 Chloride 104 Carbon Dioxide 31 Anion Gap 8 BUN 12 Creatinine 0.3 L Creat Clearance w eGFR > 60 Random Glucose 83 Calcium 7.5 L Total Bilirubin 0.7 AST 55 H ALT 109 H Alkaline Phosphatase 103 Total Protein 5.5 L Albumin 2.3 L Urine Color [place] Urine Appearance Turbid Urine pH 7.0 Ur Specific [place] 1.020 Urine Protein 1+ H Urine Glucose (UA) Negative Urine Ketones Negative Urine Blood 1+ H Urine Nitrite Negative Urine Bilirubin Negative Urine Urobilinogen Negative Ur Leukocyte Esterase 3+ H Urine WBC (Auto) 853 Urine RBC (Auto) 68 Urine Bacteria Many Urine Mucus Many Problem List - Problems (1) Lung cancer Code(s): C34.90 - MALIGNANT NEOPLASM OF UNSP PART OF UNSP BRONCHUS OR LUNG (2) Autoimmune thyroiditis Code(s): E06.3 - AUTOIMMUNE THYROIDITIS (3) Amber-Danlos syndrome Code(s): Q79.6 - AMBER-DANLOS SYNDROME (4) Hypertension Code(s): I10 - ESSENTIAL (PRIMARY) HYPERTENSION (5) Lung nodule Code(s): R91.1 - SOLITARY PULMONARY NODULE (6) Rheumatoid arthritis Code(s): M06.9 - RHEUMATOID ARTHRITIS, UNSPECIFIED Assessment/Plan ASSESSMENT AND PLAN: Squamous Cell Ca s/p R VATS/pneumolysis/wedge resection/mediastinal lymph node sampling Amber Danlos Syndrome h/o Autoimmune Thyroiditis Rheumatoid Arthritis HTN - ABX per ID for suspected UTI - Encourage Incentive spirometry - inhaled bronchodilators - O2 as needed - OOB to chair - DVT prophylaxis Dr Maza
[2017-06-21] MEDS: ACETAMINOPHEN 325 MG TABLET (FP) PO PRN ×2 (14:06→21:59)
[2017-06-21 14:48] LABS: HEMATOCRIT 24.7 % (32.4-45.2); HEMOGLOBIN 8.5 GM/dL (10.7-15.3); MCHC 34.3 g/dl (32.0-36.0); MEAN CELL VOLUME 99.3 fl (80-96); MEAN PLT VOLUME 8.7 fl (7.5-11.1); PLATELET COUNT 100 K/MM3 (134-434); RBC 2.49 M/mm3 (3.60-5.2); RDW 16.7 % (11.6-15.6); WHITE BLOOD COUNT 8.2 K/mm3 (4.0-10.0)
--- NOTE | 2017-06-21 15:47 | CONS ---
DATE OF CONSULTATION: DATE OF DICTATION: 06/21/2017 This is a 77-year-old female with newly-diagnosed lung cancer who I am asked to see for evaluation of fever. She has been hospitalized over approximately a week and was admitted for right upper lobe wedge resection and mediastinal lymph node sampling by Dr. Chambers on June 15. Her followup pathology was found to show squamous cell carcinoma. She had a chest tube postoperatively, which has now been removed, and is also noted to have newly-diagnosed left vocal cord paralysis of unknown etiology. Her chest x-ray postoperatively has shown a right apical pneumothorax. Yesterday, she spiked fever to 102. She denies any chills, cough, abdominal pain, diarrhea, or urinary complaints. She does not have a Soria catheter. She was given an empiric dose of antibiotics with vancomycin and Zosyn and I am asked to see her for further evaluation and treatment. PAST MEDICAL HISTORY: Status post VATS, hypertension, osteoarthritis, Lorenza-Danlos syndrome, osteopenia, vertebral compression fractures of T12 and L1, rheumatoid arthritis, hypothyroidism. MEDICATIONS: Levothyroxine, methotrexate, naproxen, Azulfidine, amitriptyline, lisinopril/hydrochlorothiazide. ALLERGIES: CODEINE. SOCIAL HISTORY: Former smoker. No alcohol use, no travel. FAMILY HISTORY: Noncontributory. REVIEW OF SYSTEMS: Respiratory: Status post VATS, chest tube removal. No shortness of breath, chest pain, cough. Cardiac: No history of murmur, palpitations, chest pain. Gastrointestinal: No abdominal pain, nausea, vomiting, diarrhea. Genitourinary: No dysuria, hematuria, urinary frequency. PHYSICAL EXAMINATION: General: She was an alert female in no acute distress, weak-appearing. Vital Signs: Weight 113 pounds, temperature currently 98.1, pulse 87, blood pressure 140/65, respirations 20. HEENT: Oropharynx without exudate or thrush. Neck: Supple. No adenopathy. Lungs: Diminished breath sounds with bilateral rales. Chest: Symmetrical with a chest tube and VAT incision, which were examined; did not have any purulent drainage noted and no erythema seen around the wounds. Heart: S1, S2, regular rhythm without audible murmur. Abdomen: Soft, nontender without hepatosplenomegaly, guarding, rebound. Extremities: No clubbing, cyanosis, or edema. The white count was 7.2, hemoglobin 8.3, platelets 113. BUN 14, creatinine 0.4. Bilirubin 0.7, AST 162, ALT 172, alkaline phosphatase 108. UA with 850 WBCs, 3+ leukocyte esterase, many bacteria, and 68 RBCs. Chest x-ray dated June 19 reviewed; shows increased markings on the right side. No sign of discrete right pneumothorax. Extensive pulmonary changes noted. ASSESSMENT: A 77-year-old female 6 days out from a video-assisted thoracoscopic procedure complicated by pneumothorax with new-onset of fever and urinalysis findings suggesting urinary tract as a possible source. She is also at high risk for pneumonia. Currently, she is afebrile and does not appear in any distress. I will empirically treat her with ceftriaxone for now, pending blood and urine cultures. Her preliminary blood culture this morning I already know are no growth as of now. Will follow up regarding final culture results. SHAHIDA BECKER M.D. [id number]
[2017-06-21] MEDS: SENNOSIDES 8.6MG TABLET (FP) PO PRN (21:57)
[2017-06-21] MEDS: AMITRIPTYLINE HCL 25 MG TABLET (FP) PO SCH (21:58)
--- NOTE | 2017-06-22 00:11 | EKG ---
Test Reason : Blood Pressure : / mmHG Vent. Rate : 123 BPM Atrial Rate : 123 BPM P-R Int : 140 ms QRS Dur : 092 ms QT Int : 316 ms P-R-T Axes : 054 -32 038 degrees QTc Int : 452 ms POOR DATA QUALITY, INTERPRETATION MAY BE ADVERSELY AFFECTED SINUS TACHYCARDIA LEFT AXIS DEVIATION ABNORMAL ECG NO PREVIOUS ECGS AVAILABLE Confirmed by AURELIO KANG MD ([id number]) on 06/22/2017 12:10:50 AM Referred By: Sly Chambers Confirmed By:AURELIO KANG MD
[2017-06-22] MEDS: LEVOTHYROXINE NA 125 MCG TABLET (FP) PO SCH (06:15)
[2017-06-22 06:43] LABS: BASO % 0.2 % (0-2.0); EOS % 4.1 % (0-4.5); HEMATOCRIT 22.5 % (32.4-45.2); HEMOGLOBIN 7.7 GM/dL (10.7-15.3); LYMPH % 13.9 % (8-40); MCH 34.1 pg (25.7-33.7); MCHC 34.1 g/dl (32.0-36.0); MEAN CELL VOLUME 99.8 fl (80-96); MEAN PLT VOLUME 9.4 fl (7.5-11.1); MONO % 5.6 % (3.8-10.2); NEUT % 76.2 % (42.8-82.8); PLATELET COUNT 99 K/MM3 (134-434); RBC 2.25 M/mm3 (3.60-5.2); RDW 17.5 % (11.6-15.6); WHITE BLOOD COUNT 8.2 K/mm3 (4.0-10.0)
[2017-06-22 07:12] LABS: ALBUMIN 2.2 g/dl (3.4-5.0); ANION GAP 7 (8-16); BLOOD UREA NITROGEN 15 mg/dL (7-18); CALCIUM 7.6 mg/dL (8.5-10.1); CHLORIDE 107 mmol/L (98-107); CO2 29 mmol/L (21-32); CREATININE 0.3 mg/dL (0.55-1.02); GLUCOSE,RANDOM 93 mg/dL (74-106); POTASSIUM 3.9 mmol/L (3.5-5.1); SGOT/AST 32 U/L (15-37); SGPT/ALT 76 U/L (12-78); SODIUM 143 mmol/L (136-145)
[2017-06-22 07:14] LABS: ALK PHOS 110 U/L (45-117); BILIRUBIN,TOTAL 0.5 mg/dL (0.2-1.0); TOT PROT 5.2 g/dl (6.4-8.2)
[2017-06-22] MEDS: ALBUTEROL SO4 2.5/IPRATROPIUM 0.5 INH SOL 3 ML VIAL.NEB. NEB PRN ×2 (07:44→21:21)
[2017-06-22] MEDS ORDERED: cefTRIAXone SODIUM 1 GM VIAL ONE (09:15)
[2017-06-22] MEDS ORDERED: DEXTROSE 5%-WATER - 50 ML IVPB ONE (09:15)
[2017-06-22] MEDS: FOLIC ACID 1 MG TABLET (FP) PO SCH (09:27)
[2017-06-22] MEDS: MULTIVITAMINS (DAILY MVI) TABLET (FP) PO SCH (09:27)
[2017-06-22] MEDS: DOCUSATE SODIUM 100 MG CAPSULE (FP) PO SCH ×2 (09:27→21:16)
[2017-06-22] MEDS: HEPARIN NA (PORCINE) 5,000 UNITS/ML 1ML VIAL SQ SCH ×2 (09:27→21:19)
[2017-06-22] MEDS: CEFTRIAXONE 1 GM in DEXTROSE 5%-WATER - 50 ML IVPB SCH (09:27)
[2017-06-22] MEDS: PANTOPRAZOLE 40 MG TABLET (FP) PO SCH (09:27)
--- NOTE | 2017-06-22 10:17 | PN ---
Physical Exam: SUBJECTIVE: Patient seen and examined at the bedside. OBJECTIVE: Vital Signs Period Temp Pulse Resp BP Sys/Valentino Pulse Ox Last 24 Hr 98.3 F-101.0 F 99-118 18-20 129-151/66-90 96 GENERAL: Awake, alert, and fully oriented, in no acute distress. HEAD: Normal with no signs of trauma. EYES: Pupils equal, round and reactive to light, extraocular movements intact, sclera anicteric, conjunctiva clear. No lid lag. EARS, NOSE, THROAT: Ears normal, nares patent, oropharynx clear without exudates. Moist mucous membranes. NECK: Normal range of motion, supple without lymphadenopathy, JVD, or masses. LUNGS: ant breath sounds clear to auscultation, bilateral posterior lung diminished, s/p right pig tail with chest tube s/p VATS procedure - CT removed last Thursday HEART:mild tachycardia ABDOMEN: Soft, nontender, not distended, normoactive bowel sounds, MUSCULOSKELETAL: Normal range of motion at all joints. No bony deformities or tenderness. UPPER EXTREMITIES: No peripheral edema. LOWER EXTREMITIES: No peripheral edema. NEUROLOGICAL: Normal speech. Gait not observed PSYCHIATRIC: Cooperative. Good eye contact. Appropriate mood and affect. Laboratory Results - last 24 hr 06/21/17 06/22/17 06/22/17 14:35 06:15 06:15 WBC 8.2 8.2 RBC 2.49 L 2.25 L Hgb 8.5 L 7.7 L Hct 24.7 L 22.5 L MCV 99.3 H 99.8 H MCH 34.0 H 34.1 H MCHC 34.3 34.1 RDW 16.7 H 17.5 H Plt Count 100 L 99 L MPV 8.7 9.4 Neutrophils % 76.2 Lymphocytes % 13.9 Monocytes % 5.6 Eosinophils % 4.1 Basophils % 0.2 Sodium 143 Potassium 3.9 Chloride 107 Carbon Dioxide 29 Anion Gap 7 L BUN 15 Creatinine 0.3 L Creat Clearance w eGFR > 60 Random Glucose 93 Calcium 7.6 L Total Bilirubin 0.5 D AST 32 ALT 76 Alkaline Phosphatase 110 Total Protein 5.2 L Albumin 2.2 L Active Medications Generic Name Dose Route Start Last Admin Trade Name Freq PRN Reason Stop Dose Admin Acetaminophen 650 mg 06/18/17 17:42 06/21/17 21:59 Tylenol - PO 650 mg Q6H PRN Administration PAIN LEVEL 7 - 10 Albuterol/Ipratropium 1 amp 06/18/17 17:42 06/22/17 07:44 Duoneb - NEB 1 amp Q4H PRN Administration SHORTNESS OF BREATH Amitriptyline HCl 25 mg 06/18/17 22:00 06/21/17 21:58 Elavil - PO 25 mg HS [facility] Administration Benzocaine/Menthol 1 each 06/18/17 17:42 06/21/17 06:25 Cepacol Lozenge - MM 1 each PRN PRN Administration SORE THROAT Docusate Sodium 100 mg 06/18/17 22:00 06/22/17 09:27 Colace - PO 100 mg BID [facility] Administration Folic Acid 1 mg 06/19/17 10:00 06/22/17 09:27 Folic Acid - PO 1 mg DAILY [facility] Administration Heparin Sodium (Porcine) 5,000 unit 06/18/17 22:00 06/22/17 09:27 Heparin - SQ 5,000 unit BID [facility] Administration Ceftriaxone Sodium 1 gm/ 50 mls @ 100 mls/hr 06/21/17 10:00 06/22/17 09:27 Dextrose IVPB 100 mls/hr DAILY [facility] Administration Levothyroxine Sodium 125 mcg 06/19/17 07:00 06/22/17 06:15 Synthroid - PO 125 mcg DAILY@0700 [facility] Administration Methotrexate 22.5 mg 06/23/17 10:00 Mexate - PO Tu@1000 [facility] Multivitamins/Minerals/Vitamin C 1 tab 06/19/17 10:00 06/22/17 09:27 Tab-A-Vit - PO 1 tab DAILY [facility] Administration Nystatin 500,000 units 06/20/17 10:51 06/21/17 22:00 Nystatin Oral Suspension - PO 500,000 units Q6HPO PRN Administration ORAL PAIN/MOUTH SORES Pantoprazole Sodium 40 mg 06/19/17 10:00 06/22/17 09:27 Protonix - PO 40 mg DAILY [facility] Administration Senna 2 tab 06/18/17 22:00 06/21/17 21:57 Senna - PO 2 tab HS PRN Administration CONSTIPATION ASSESSMENT/PLAN: Patient is a 77 year old female with a significant past medical history of autoimmune thyroiiditis, osteoarthritis, essential (primary) hypertension, rheumatoid arthritis, radha danlos syndrome, former smoker. Patient is s/p bronchoscopy, VATS with extensive pneumolysis, right upper lobe wedge, mediastinal lymph node sampling with Dr. Chambers. Pathology: RUL wedge, frozen section: positive for non small carcinoma Pulmonary: s/p bronchoscopy/VATS on 06/15/2017 RUL wedge resection with squamous cell lung cancer s/p chest tube to water seal Monitor respiratory status Allbuterol prn On supplemental oxygen @ 2-3 liters Followed by oncology for further treatment options ID: + urine culture, pending organism tax [id number] On Ceftriaxone ID following Cardiology Hypertension, chronic On Lisinopril Endocrine Rheumatoid arthritis On Methotraxtate Hypothyroidism On Syntrhoid daily Vocal cord paralysis Seen by speech and swallow, on dysphagia diet ENT consulted Patient on swish and swallow, may need to continue this medication depending on extent of fungus F.E.N. Fluids: PO adequate Electrolytes: monitor with a.m labs Nutrition: dysphasia diet Prophylaxis: DVT: SCDs GI: Pepcid Disposition: full code.
--- NOTE | 2017-06-22 10:29 | PN ---
Progress Note, Physician Chief Complaint: ID Febrile before 102-102 but down now Says she feels ( and looks) better today - Current Medication List Current Medications: Active Medications Acetaminophen (Tylenol -) 650 mg PO Q6H PRN PRN Reason: PAIN LEVEL 7 - 10 Last Admin: 06/21/17 21:59 Dose: 650 mg Albuterol/Ipratropium (Duoneb -) 1 amp NEB Q4H PRN PRN Reason: SHORTNESS OF BREATH Last Admin: 06/22/17 07:44 Dose: 1 amp Amitriptyline HCl (Elavil -) 25 mg PO HS [facility] Last Admin: 06/21/17 21:58 Dose: 25 mg Benzocaine/Menthol (Cepacol Lozenge -) 1 each MM PRN PRN PRN Reason: SORE THROAT Last Admin: 06/21/17 06:25 Dose: 1 each Docusate Sodium (Colace -) 100 mg PO BID [facility] Last Admin: 06/22/17 09:27 Dose: 100 mg Folic Acid (Folic Acid -) 1 mg PO DAILY [facility] Last Admin: 06/22/17 09:27 Dose: 1 mg Heparin Sodium (Porcine) (Heparin -) 5,000 unit SQ BID [facility] Last Admin: 06/22/17 09:27 Dose: 5,000 unit Ceftriaxone Sodium 1 gm/ (Dextrose) 50 mls @ 100 mls/hr IVPB DAILY [facility] Last Admin: 06/22/17 09:27 Dose: 100 mls/hr Levothyroxine Sodium (Synthroid -) 125 mcg PO DAILY@0700 [facility] Last Admin: 06/22/17 06:15 Dose: 125 mcg Methotrexate (Mexate -) 22.5 mg PO Tu@1000 [facility] Multivitamins/Minerals/Vitamin C (Tab-A-Vit -) 1 tab PO DAILY [facility] Last Admin: 06/22/17 09:27 Dose: 1 tab Nystatin (Nystatin Oral Suspension -) 500,000 units PO Q6HPO PRN PRN Reason: ORAL PAIN/MOUTH SORES Last Admin: 06/21/17 22:00 Dose: 500,000 units Pantoprazole Sodium (Protonix -) 40 mg PO DAILY [facility] Last Admin: 06/22/17 09:27 Dose: 40 mg Senna (Senna -) 2 tab PO HS PRN PRN Reason: CONSTIPATION Last Admin: 06/21/17 21:57 Dose: 2 tab - Objective Vital Signs: Vital Signs Temperature 98.6 F 06/22/17 09:12 Pulse Rate 102 H 06/22/17 09:12 Respiratory Rate 20 06/22/17 09:12 Blood Pressure 140/76 06/22/17 09:12 O2 Sat by Pulse Oximetry (%) 96 06/22/17 01:25 Constitutional: Yes: Thin Cardiovascular: Yes: Regular Rate and Rhythm, S1, S2. No: Murmur Respiratory: Yes: WNL, Regular, CTA Bilaterally, Rales Gastrointestinal: Yes: WNL, Normal Bowel Sounds, Soft. No: Tenderness Edema: No Labs: CBC, BMP 06/22/17 06:15 06/22/17 06:15 INR, PTT INR 1.06 (0.82-1.09) 06/15/17 13:15 Problem List - Problems (1) Fever Code(s): R50.9 - FEVER, UNSPECIFIED (2) Lung cancer Code(s): C34.90 - MALIGNANT NEOPLASM OF UNSP PART OF UNSP BRONCHUS OR LUNG (3) UTI (urinary tract infection) Code(s): N39.0 - URINARY TRACT INFECTION, SITE NOT SPECIFIED Assessment/Plan Microbiology 06/15/17 12:35 Lung - Right Upper Lobe Gram Stain - Final 06/15/17 12:35 Lung - Right Upper Lobe Anaerobic Culture - Final NO GROWTH OF AEROBIC ORGANISMS AFTER 48 HOURS INCUBATION NO ANAEROBES WERE ISOLATED 06/15/17 12:35 Lung - Right Upper Lobe AFB Smear Concentration - Final 06/20/17 18:20 Blood - Peripheral Venous Blood Culture - Preliminary NO GROWTH OBTAINED AFTER 24 HOURS, INCUBATION TO CONTINUE FOR 4 DAYS. 06/20/17 08:20 Urine - Urine - Catheterized Urine Culture - Preliminary Lactose Fermenting Neg Bacilli 06/20/17 06:10 Blood - Peripheral Venous Blood Culture - Preliminary NO GROWTH OBTAINED AFTER 24 HOURS, INCUBATION TO CONTINUE FOR 4 DAYS. 06/15/17 12:35 Lung - Right Upper Lobe Mycobacterial Culture - Preliminary 06/15/17 12:35 Lung - Right Upper Lobe YONI Preparation - Preliminary 06/15/17 12:35 Lung - Right Upper Lobe Fungal Culture - Preliminary Laboratory Tests 06/20/17 06/22/17 06/22/17 08:20 06:15 06:15 WBC 8.2 Hgb 7.7 L Hct 22.5 L Plt Count 99 L BUN 15 Creatinine 0.3 L Ur Leukocyte Esterase 3+ H Urine WBC (Auto) 853 Urine RBC (Auto) 68 Urine Bacteria Many Assessment Lung Cancer post VAT Post op fever suspect urinary tract source LF growing ON Ceftriaxone She looks better today Plan Continue current therapy pending c/s Brandon GEE
--- NOTE | 2017-06-22 10:53 | PN ---
Progress Note (short form) - Note Progress Note: PULMONARY Febrile overnight but feels better. Urine cultures positive. States breathing well. No significant cough or wheezing. Last Vital Signs Temp Pulse Resp BP Pulse Ox 98.6 F 102 H 20 140/76 96 06/22/17 09:12 06/22/17 09:12 06/22/17 09:12 06/22/17 09:12 06/22/17 01:25 Gen: NAD at rest Heart: RRR Lung: decreased breath sounds at the bases Abd: soft, nontender Ext: no edema CBC, BMP 06/22/17 06:15 06/22/17 06:15 Active Medications Acetaminophen (Tylenol -) 650 mg PO Q6H PRN PRN Reason: PAIN LEVEL 7 - 10 Last Admin: 06/21/17 21:59 Dose: 650 mg Albuterol/Ipratropium (Duoneb -) 1 amp NEB Q4H PRN PRN Reason: SHORTNESS OF BREATH Last Admin: 06/22/17 07:44 Dose: 1 amp Amitriptyline HCl (Elavil -) 25 mg PO HS [facility] Last Admin: 06/21/17 21:58 Dose: 25 mg Benzocaine/Menthol (Cepacol Lozenge -) 1 each MM PRN PRN PRN Reason: SORE THROAT Last Admin: 06/21/17 06:25 Dose: 1 each Docusate Sodium (Colace -) 100 mg PO BID [facility] Last Admin: 06/22/17 09:27 Dose: 100 mg Folic Acid (Folic Acid -) 1 mg PO DAILY [facility] Last Admin: 06/22/17 09:27 Dose: 1 mg Heparin Sodium (Porcine) (Heparin -) 5,000 unit SQ BID [facility] Last Admin: 06/22/17 09:27 Dose: 5,000 unit Ceftriaxone Sodium 1 gm/ (Dextrose) 50 mls @ 100 mls/hr IVPB DAILY [facility] Last Admin: 06/22/17 09:27 Dose: 100 mls/hr Levothyroxine Sodium (Synthroid -) 125 mcg PO DAILY@0700 [facility] Last Admin: 06/22/17 06:15 Dose: 125 mcg Methotrexate (Mexate -) 22.5 mg PO Tu@1000 [facility] Multivitamins/Minerals/Vitamin C (Tab-A-Vit -) 1 tab PO DAILY [facility] Last Admin: 06/22/17 09:27 Dose: 1 tab Nystatin (Nystatin Oral Suspension -) 500,000 units PO Q6HPO PRN PRN Reason: ORAL PAIN/MOUTH SORES Last Admin: 06/21/17 22:00 Dose: 500,000 units Pantoprazole Sodium (Protonix -) 40 mg PO DAILY [facility] Last Admin: 06/22/17 09:27 Dose: 40 mg Senna (Senna -) 2 tab PO HS PRN PRN Reason: CONSTIPATION Last Admin: 06/21/17 21:57 Dose: 2 tab A/P Squamous Cell Ca s/p R VATS/pneumolysis/wedge resection/mediastinal lymph node sampling Lorenza Danlos Syndrome h/o Autoimmune Thyroiditis Rheumatoid Arthritis HTN UTI - continue antibiotics - f/u cultures - incentive spirometry - inhaled bronchodilators - O2 as needed - PO as tolerated - OOB to chair - DVT prophylaxis
--- NOTE | 2017-06-22 14:42 | PN ---
Progress Note (short form) - Note Progress Note: Thoracic Surgery POD #7 Fever to 101 Presumably UTI Wounds clean Still c/o odynphagia but on antifungal No significant aspiration on swallow CXR improving Needs to be OOB ambulating (PT) Wean oxygen Discharge on po abx if afebrile >24 hours.
--- NOTE | 2017-06-22 15:35 | PN ---
Physical Exam: SUBJECTIVE: Patient seen and examined at the bedside. States she feels well. OBJECTIVE: Vital Signs Period Temp Pulse Resp BP Sys/Valentino Pulse Ox Last 24 Hr 98.3 F-101.0 F 99-114 18-20 129-151/66-90 96 GENERAL: The patient is awake, alert, and fully oriented, in no acute distress. HEAD: Normal with no signs of trauma. EYES: PERRL, extraocular movements intact, sclera anicteric, conjunctiva clear. No ptosis. ENT: Ears normal, nares patent, oropharynx clear without exudates, moist mucous membranes. NECK: Trachea midline, full range of motion, supple. LUNGS: Breath sounds equal, clear to auscultation bilaterally, no wheezes, no crackles, no accessory muscle use. HEART: Regular rate and rhythm, S1, S2 without murmur, rub or gallop. ABDOMEN: Soft, nontender, nondistended, normoactive bowel sounds, no guarding, no rebound, no hepatosplenomegaly, no masses. EXTREMITIES: 2+ pulses, warm, well-perfused, no edema. NEUROLOGICAL: Cranial nerves II through XII grossly intact. Normal speech, gait not observed. PSYCH: Normal mood, normal affect. SKIN: Warm, dry, normal turgor, no rashes or lesions noted Laboratory Results - last 24 hr 06/22/17 06/22/17 06:15 06:15 WBC 8.2 RBC 2.25 L Hgb 7.7 L Hct 22.5 L MCV 99.8 H MCH 34.1 H MCHC 34.1 RDW 17.5 H Plt Count 99 L MPV 9.4 Neutrophils % 76.2 Lymphocytes % 13.9 Monocytes % 5.6 Eosinophils % 4.1 Basophils % 0.2 Sodium 143 Potassium 3.9 Chloride 107 Carbon Dioxide 29 Anion Gap 7 L BUN 15 Creatinine 0.3 L Creat Clearance w eGFR > 60 Random Glucose 93 Calcium 7.6 L Total Bilirubin 0.5 D AST 32 ALT 76 Alkaline Phosphatase 110 Total Protein 5.2 L Albumin 2.2 L Active Medications Generic Name Dose Route Start Last Admin Trade Name Freq PRN Reason Stop Dose Admin Acetaminophen 650 mg 06/18/17 17:42 06/21/17 21:59 Tylenol - PO 650 mg Q6H PRN Administration PAIN LEVEL 7 - 10 Albuterol/Ipratropium 1 amp 06/18/17 17:42 06/22/17 07:44 Duoneb - NEB 1 amp Q4H PRN Administration SHORTNESS OF BREATH Amitriptyline HCl 25 mg 06/18/17 22:00 06/21/17 21:58 Elavil - PO 25 mg HS [facility] Administration Benzocaine/Menthol 1 each 06/18/17 17:42 06/21/17 06:25 Cepacol Lozenge - MM 1 each PRN PRN Administration SORE THROAT Docusate Sodium 100 mg 06/18/17 22:00 06/22/17 09:27 Colace - PO 100 mg BID [facility] Administration Folic Acid 1 mg 06/19/17 10:00 06/22/17 09:27 Folic Acid - PO 1 mg DAILY [facility] Administration Heparin Sodium (Porcine) 5,000 unit 06/18/17 22:00 06/22/17 09:27 Heparin - SQ 5,000 unit BID [facility] Administration Ceftriaxone Sodium 1 gm/ 50 mls @ 100 mls/hr 06/21/17 10:00 06/22/17 09:27 Dextrose IVPB 100 mls/hr DAILY [facility] Administration Levothyroxine Sodium 125 mcg 06/19/17 07:00 06/22/17 06:15 Synthroid - PO 125 mcg DAILY@0700 [facility] Administration Methotrexate 22.5 mg 06/23/17 10:00 Mexate - PO Tu@1000 [facility] Multivitamins/Minerals/Vitamin C 1 tab 06/19/17 10:00 06/22/17 09:27 Tab-A-Vit - PO 1 tab DAILY [facility] Administration Nystatin 500,000 units 06/20/17 10:51 06/21/17 22:00 Nystatin Oral Suspension - PO 500,000 units Q6HPO PRN Administration ORAL PAIN/MOUTH SORES Pantoprazole Sodium 40 mg 06/19/17 10:00 06/22/17 09:27 Protonix - PO 40 mg DAILY [facility] Administration Senna 2 tab 06/18/17 22:00 06/21/17 21:57 Senna - PO 2 tab HS PRN Administration CONSTIPATION ASSESSMENT/PLAN:
[2017-06-22] MEDS ORDERED: FLUCONAZOLE 40 MG/ML SUSPENSION PO ONE (16:33)
[2017-06-22] MEDS: ACETAMINOPHEN 325 MG TABLET (FP) PO PRN (18:45)
[2017-06-22] MEDS: AMITRIPTYLINE HCL 25 MG TABLET (FP) PO SCH (21:16)
[2017-06-22] MEDS: SENNOSIDES 8.6MG TABLET (FP) PO PRN (21:16)
[2017-06-22] MEDS ORDERED: FLUCONAZOLE 40 MG/ML SUSPENSION PO SCH (22:00)
[2017-06-23] MEDS: LEVOTHYROXINE NA 125 MCG TABLET (FP) PO SCH (06:26)
[2017-06-23] MEDS: ALBUTEROL SO4 2.5/IPRATROPIUM 0.5 INH SOL 3 ML VIAL.NEB. NEB PRN ×2 (07:45→21:15)
[2017-06-23 09:55] LABS: BASO % 0.4 % (0-2.0); EOS % 4.4 % (0-4.5); HEMATOCRIT 25.2 % (32.4-45.2); HEMOGLOBIN 8.5 GM/dL (10.7-15.3); LYMPH % 12.2 % (8-40); MCH 33.6 pg (25.7-33.7); MCHC 33.8 g/dl (32.0-36.0); MEAN CELL VOLUME 99.5 fl (80-96); MEAN PLT VOLUME 8.7 fl (7.5-11.1); MONO % 5.6 % (3.8-10.2); NEUT % 77.4 % (42.8-82.8); PLATELET COUNT 101 K/MM3 (134-434); RBC 2.53 M/mm3 (3.60-5.2); RDW 17.2 % (11.6-15.6); WHITE BLOOD COUNT 8.7 K/mm3 (4.0-10.0)
[2017-06-23] MEDS ORDERED: METHOTREXATE 2.5 MG TABLET PO SCH ×2 (10:00)
[2017-06-23] MEDS ORDERED: FLUCONAZOLE 40 MG/ML SUSPENSION PO SCH (10:00)
[2017-06-23 10:20] LABS: ALBUMIN 2.5 g/dl (3.4-5.0); ALK PHOS 116 U/L (45-117); ANION GAP 6 (8-16); BILIRUBIN,TOTAL 0.3 mg/dL (0.2-1.0); BLOOD UREA NITROGEN 13 mg/dL (7-18); CALCIUM 7.7 mg/dL (8.5-10.1); CHLORIDE 105 mmol/L (98-107); CO2 29 mmol/L (21-32); CREATININE 0.4 mg/dL (0.55-1.02); GLUCOSE,RANDOM 128 mg/dL (74-106); MAGNESIUM 2.1 mg/dL (1.8-2.4); POTASSIUM 3.8 mmol/L (3.5-5.1); SGOT/AST 20 U/L (15-37); SGPT/ALT 61 U/L (12-78); SODIUM 140 mmol/L (136-145); TOT PROT 5.9 g/dl (6.4-8.2)
[2017-06-23] MEDS: MULTIVITAMINS (DAILY MVI) TABLET (FP) PO SCH (10:34)
[2017-06-23] MEDS: FOLIC ACID 1 MG TABLET (FP) PO SCH (10:34)
[2017-06-23] MEDS: PANTOPRAZOLE 40 MG TABLET (FP) PO SCH (10:34)
[2017-06-23] MEDS: DOCUSATE SODIUM 100 MG CAPSULE (FP) PO SCH ×2 (10:34→21:38)
[2017-06-23] MEDS: SENNOSIDES 8.6MG TABLET (FP) PO PRN ×2 (10:34→21:37)
[2017-06-23] MEDS: HEPARIN NA (PORCINE) 5,000 UNITS/ML 1ML VIAL SQ SCH ×2 (10:34→21:38)
--- NOTE | 2017-06-23 10:44 | PN ---
Progress Note (short form) - Note Progress Note: PULMONARY No further fevers. Urine organism pending. Some shortness of breath, walked with physical therapy. No significant cough or wheezing. Last Vital Signs Temp Pulse Resp BP Pulse Ox 98.8 F 106 H 20 150/80 96 06/23/17 09:52 06/23/17 09:52 06/23/17 09:52 06/23/17 09:52 06/23/17 01:00 Gen: NAD at rest Heart: RRR Lung: right base rales Abd: soft, nontender Ext: no edema CBC, BMP 06/23/17 09:35 06/23/17 09:35 Active Medications Acetaminophen (Tylenol -) 650 mg PO Q6H PRN PRN Reason: PAIN LEVEL 7 - 10 Last Admin: 06/22/17 18:45 Dose: 650 mg Albuterol/Ipratropium (Duoneb -) 1 amp NEB Q4H PRN PRN Reason: SHORTNESS OF BREATH Last Admin: 06/23/17 07:45 Dose: 1 amp Amitriptyline HCl (Elavil -) 25 mg PO HS [facility] Last Admin: 06/22/17 21:16 Dose: 25 mg Benzocaine/Menthol (Cepacol Lozenge -) 1 each MM PRN PRN PRN Reason: SORE THROAT Last Admin: 06/21/17 06:25 Dose: 1 each Docusate Sodium (Colace -) 100 mg PO BID [facility] Last Admin: 06/23/17 10:34 Dose: 100 mg Fluconazole (Diflucan 40mg/Ml Suspension -) 100 mg PO DAILY [facility] Stop: 07/07/17 10:00 Folic Acid (Folic Acid -) 1 mg PO DAILY [facility] Last Admin: 06/23/17 10:34 Dose: 1 mg Heparin Sodium (Porcine) (Heparin -) 5,000 unit SQ BID [facility] Last Admin: 06/23/17 10:34 Dose: 5,000 unit Ceftriaxone Sodium 1 gm/ (Dextrose) 50 mls @ 100 mls/hr IVPB DAILY [facility] Last Admin: 06/22/17 09:27 Dose: 100 mls/hr Levothyroxine Sodium (Synthroid -) 125 mcg PO DAILY@0700 [facility] Last Admin: 06/23/17 06:26 Dose: 125 mcg Methotrexate (Mexate -) 22.5 mg PO Tu@1000 [facility] Last Admin: 06/23/17 10:36 Dose: 22.5 mg Multivitamins/Minerals/Vitamin C (Tab-A-Vit -) 1 tab PO DAILY [facility] Last Admin: 06/23/17 10:34 Dose: 1 tab Pantoprazole Sodium (Protonix -) 40 mg PO DAILY [facility] Last Admin: 06/23/17 10:34 Dose: 40 mg Senna (Senna -) 2 tab PO HS PRN PRN Reason: CONSTIPATION Last Admin: 06/23/17 10:34 Dose: 2 tab A/P Squamous Cell Ca s/p R VATS/pneumolysis/wedge resection/mediastinal lymph node sampling Lorenza Danlos Syndrome h/o Autoimmune Thyroiditis Rheumatoid Arthritis HTN UTI - continue antibiotics - f/u cultures - incentive spirometry - inhaled bronchodilators - O2 as needed - PO as tolerated - OOB to chair/PT - DVT prophylaxis
[2017-06-23] MEDS ORDERED: DEXTROSE 5%-WATER - 50 ML IVPB ONE (10:55)
[2017-06-23] MEDS ORDERED: cefTRIAXone SODIUM 1 GM VIAL ONE (10:55)
[2017-06-23] MEDS: FLUCONAZOLE 40 MG/ML SUSPENSION PO SCH (10:58)
[2017-06-23] MEDS: CEFTRIAXONE 1 GM in DEXTROSE 5%-WATER - 50 ML IVPB SCH (10:59)
--- NOTE | 2017-06-23 11:14 | PN ---
Progress Note, SR. [employer] - Note Progress Note: Selected Entries 06/22/17 06/22/17 06/22/17 09:27 13:28 19:06 Breakfast 75% Lunch 75% Supper 50% 06/23/17 10:22 Breakfast 75% Lunch Supper MBS reviewed with pt and staff. Diet not yet upgraded. REC: Soft regular.thin liquid diet Monitor tolerance
--- NOTE | 2017-06-23 13:24 | PN ---
Progress Note, Physician History of Present Illness: OOB in chair C/O dyspnea, congestion Reports urinary incontinence No c/o dysuria Temps down WBC WNL BC (-) Urine c/s Citrobacter (R) ceftriaxone - Current Medication List Current Medications: Active Medications Acetaminophen (Tylenol -) 650 mg PO Q6H PRN PRN Reason: PAIN LEVEL 7 - 10 Last Admin: 06/22/17 18:45 Dose: 650 mg Albuterol/Ipratropium (Duoneb -) 1 amp NEB Q4H PRN PRN Reason: SHORTNESS OF BREATH Last Admin: 06/23/17 07:45 Dose: 1 amp Amitriptyline HCl (Elavil -) 25 mg PO HS [facility] Last Admin: 06/22/17 21:16 Dose: 25 mg Benzocaine/Menthol (Cepacol Lozenge -) 1 each MM PRN PRN PRN Reason: SORE THROAT Last Admin: 06/21/17 06:25 Dose: 1 each Docusate Sodium (Colace -) 100 mg PO BID [facility] Last Admin: 06/23/17 10:34 Dose: 100 mg Fluconazole (Diflucan 40mg/Ml Suspension -) 100 mg PO DAILY [facility] Stop: 07/07/17 10:00 Last Admin: 06/23/17 10:58 Dose: 100 mg Folic Acid (Folic Acid -) 1 mg PO DAILY [facility] Last Admin: 06/23/17 10:34 Dose: 1 mg Heparin Sodium (Porcine) (Heparin -) 5,000 unit SQ BID [facility] Last Admin: 06/23/17 10:34 Dose: 5,000 unit Ceftriaxone Sodium 1 gm/ (Dextrose) 50 mls @ 100 mls/hr IVPB DAILY [facility] Last Admin: 06/23/17 10:59 Dose: 100 mls/hr Levothyroxine Sodium (Synthroid -) 125 mcg PO DAILY@0700 [facility] Last Admin: 06/23/17 06:26 Dose: 125 mcg Methotrexate (Mexate -) 22.5 mg PO Tu@1000 [facility] Last Admin: 06/23/17 10:36 Dose: 22.5 mg Multivitamins/Minerals/Vitamin C (Tab-A-Vit -) 1 tab PO DAILY [facility] Last Admin: 06/23/17 10:34 Dose: 1 tab Pantoprazole Sodium (Protonix -) 40 mg PO DAILY [facility] Last Admin: 06/23/17 10:34 Dose: 40 mg Senna (Senna -) 2 tab PO HS PRN PRN Reason: CONSTIPATION Last Admin: 06/23/17 10:34 Dose: 2 tab - Objective Vital Signs: Vital Signs Temperature 98.8 F 06/23/17 09:52 Pulse Rate 127 H 06/23/17 12:29 Respiratory Rate 20 06/23/17 09:52 Blood Pressure 150/80 06/23/17 09:52 O2 Sat by Pulse Oximetry (%) 90 L 06/23/17 12:29 Constitutional: Yes: No Distress, Thin Eyes: Yes: Conjunctiva Clear Cardiovascular: Yes: Regular Rate and Rhythm, S1, S2 Respiratory: Yes: Other (+ crepitations, bases) Gastrointestinal: Yes: Normal Bowel Sounds, Soft. No: Tenderness Labs: CBC, BMP 06/23/17 09:35 06/23/17 09:35 INR, PTT INR 1.06 (0.82-1.09) 06/15/17 13:15 Assessment/Plan Fever- improved UTI Lung ca Substitute levaquin 250mg IVPB qd
--- NOTE | 2017-06-23 14:54 | PN ---
Physical Exam: SUBJECTIVE: Patient seen and examined OBJECTIVE: Vital Signs Period Temp Pulse Resp BP Sys/Valentino Pulse Ox Last 24 Hr 98.5 F-99 F 92-127 18-20 129-153/68-80 90-96 GENERAL: Awake, alert, and fully oriented, in no acute distress. HEAD: Normal with no signs of trauma. EYES: Pupils equal, round and reactive to light, extraocular movements intact, sclera anicteric, conjunctiva clear. No lid lag. EARS, NOSE, THROAT: Ears normal, nares patent, oropharynx clear without exudates. Moist mucous membranes. NECK: Normal range of motion, supple without lymphadenopathy, JVD, or masses. LUNGS: ant breath sounds clear to auscultation, bilateral posterior lung diminished, s/p right pig tail with chest tube s/p VATS procedure - CT removed last Thursday HEART:mild tachycardia ABDOMEN: Soft, nontender, not distended, normoactive bowel sounds, MUSCULOSKELETAL: Normal range of motion at all joints. No bony deformities or tenderness. UPPER EXTREMITIES: No peripheral edema. LOWER EXTREMITIES: No peripheral edema. NEUROLOGICAL: Normal speech. Gait not observed PSYCHIATRIC: Cooperative. Good eye contact. Appropriate mood and affect. Laboratory Results - last 24 hr 06/23/17 06/23/17 09:35 09:35 WBC 8.7 RBC 2.53 L Hgb 8.5 L D Hct 25.2 L MCV 99.5 H MCH 33.6 MCHC 33.8 RDW 17.2 H Plt Count 101 L MPV 8.7 Neutrophils % 77.4 Lymphocytes % 12.2 Monocytes % 5.6 Eosinophils % 4.4 Basophils % 0.4 Sodium 140 Potassium 3.8 Chloride 105 Carbon Dioxide 29 Anion Gap 6 L BUN 13 Creatinine 0.4 L Creat Clearance w eGFR > 60 Random Glucose 128 H Calcium 7.7 L Magnesium 2.1 Total Bilirubin 0.3 D AST 20 ALT 61 Alkaline Phosphatase 116 Total Protein 5.9 L Albumin 2.5 L Active Medications Generic Name Dose Route Start Last Admin Trade Name Freq PRN Reason Stop Dose Admin Acetaminophen 650 mg 06/18/17 17:42 06/22/17 18:45 Tylenol - PO 650 mg Q6H PRN Administration PAIN LEVEL 7 - 10 Albuterol/Ipratropium 1 amp 06/18/17 17:42 06/23/17 07:45 Duoneb - NEB 1 amp Q4H PRN Administration SHORTNESS OF BREATH Amitriptyline HCl 25 mg 06/18/17 22:00 06/22/17 21:16 Elavil - PO 25 mg HS [facility] Administration Benzocaine/Menthol 1 each 06/18/17 17:42 06/21/17 06:25 Cepacol Lozenge - MM 1 each PRN PRN Administration SORE THROAT Docusate Sodium 100 mg 06/18/17 22:00 06/23/17 10:34 Colace - PO 100 mg BID N[facility] Administration Fluconazole 100 mg 06/23/17 10:00 06/23/17 10:58 Diflucan 40mg/Ml Suspension - PO 07/07/17 10:00 100 mg DAILY [facility] Administration Folic Acid 1 mg 06/19/17 10:00 06/23/17 10:34 Folic Acid - PO 1 mg DAILY [facility] Administration Heparin Sodium (Porcine) 5,000 unit 06/18/17 22:00 06/23/17 10:34 Heparin - SQ 5,000 unit BID [facility] Administration Levofloxacin 250 mg in 50 mls @ 50 mls/hr 06/23/17 13:30 Levaquin 250 Mg Premixed Ivpb - IVPB DAILY [facility] Levothyroxine Sodium 125 mcg 06/19/17 07:00 06/23/17 06:26 Synthroid - PO 125 mcg DAILY@0700 [facility] Administration Methotrexate 22.5 mg 06/23/17 10:00 06/23/17 10:36 Mexate - PO 22.5 mg Tu@1000 [facility] Administration Multivitamins/Minerals/Vitamin C 1 tab 06/19/17 10:00 06/23/17 10:34 Tab-A-Vit - PO 1 tab DAILY [facility] Administration Pantoprazole Sodium 40 mg 06/19/17 10:00 06/23/17 10:34 Protonix - PO 40 mg DAILY [facility] Administration Senna 2 tab 06/18/17 22:00 06/23/17 10:34 Senna - PO 2 tab HS PRN Administration CONSTIPATION ASSESSMENT/PLAN: Patient is a 77 year old female with a significant past medical history of autoimmune thyroiiditis, osteoarthritis, essential (primary) hypertension, rheumatoid arthritis, radha danlos syndrome, former smoker. Patient is s/p bronchoscopy, VATS with extensive pneumolysis, right upper lobe wedge, mediastinal lymph node sampling with Dr. Chambers. Pathology: RUL wedge, frozen section: positive for non small carcinoma Pulmonary: s/p bronchoscopy/VATS on 06/15/2017 RUL wedge resection with squamous cell lung cancer s/p chest tube to water seal Monitor respiratory status Allbuterol prn On supplemental oxygen @ 2-3 liters Followed by oncology for further treatment options ID: + urine culture shows citrobacter freundii complex Started on Levaquin IV 250mg Tmax 101.8F on 06/22 Consider transitioning to PO Levaquin prior to d/c Cardiology Hypertension, chronic On Lisinopril and HCTZ combo Monitor BP Endocrine Rheumatoid arthritis On Methotraxtate Hypothyroidism On Synthroid daily Vocal cord paralysis Seen by speech and swallow, on dysphagia diet ENT consulted, but patient well known to them and to follow outpatient as per ENT Patient on oral diflucan for mouth sores Continue diflucan per ID recommendations F.E.N. Fluids: PO adequate Electrolytes: monitor with a.m labs Nutrition: dysphasia diet Prophylaxis: DVT: SCDs GI: Pepcid Disposition: full code. Repeat respiratory pre and post prior to discharge. Visit type - Emergency Visit Emergency Visit: Yes ED Registration Date: 06/15/17 Care time: The patient presented to the Emergency Department on the above date and was hospitalized for further evaluation of their emergent condition. - New Patient This patient is new to me today: No - Critical Care Critical Care patient: No
[2017-06-23] MEDS ORDERED: PATIENT'S OWN MEDICATION (NON-FORMULARY) (Lisinopril/Hydrochlorothiazide [Lisinopril-Hctz PO SCH (19:00)
[2017-06-23] MEDS: AMITRIPTYLINE HCL 25 MG TABLET (FP) PO SCH (21:37)
[2017-06-23] MEDS: ACETAMINOPHEN 325 MG TABLET (FP) PO PRN (21:38)
[2017-06-23] MEDS: HYDROCHLOROTHIAZIDE 12.5 MG CAPSULE (FP) PO SCH (22:01)
[2017-06-23] MEDS: LISINOPRIL 20 MG TABLET (FP) PO SCH (22:01)
[2017-06-24] MEDS: LEVOTHYROXINE NA 125 MCG TABLET (FP) PO SCH (06:04)
[2017-06-24] MEDS: DOCUSATE SODIUM 100 MG CAPSULE (FP) PO SCH ×2 (09:27→21:49)
[2017-06-24] MEDS: SENNOSIDES 8.6MG TABLET (FP) PO PRN (09:27)
[2017-06-24] MEDS: HEPARIN NA (PORCINE) 5,000 UNITS/ML 1ML VIAL SQ SCH ×2 (09:27→21:52)
[2017-06-24] MEDS: MULTIVITAMINS (DAILY MVI) TABLET (FP) PO SCH (09:27)
[2017-06-24] MEDS: LISINOPRIL 20 MG TABLET (FP) PO SCH (09:28)
[2017-06-24] MEDS: PANTOPRAZOLE 40 MG TABLET (FP) PO SCH (09:28)
[2017-06-24] MEDS: HYDROCHLOROTHIAZIDE 12.5 MG CAPSULE (FP) PO SCH (09:28)
[2017-06-24] MEDS: FOLIC ACID 1 MG TABLET (FP) PO SCH (09:29)
--- NOTE | 2017-06-24 10:30 | DS ---
Physical Exam: SUBJECTIVE: Patient seen and examined OBJECTIVE: Vital Signs Period Temp Pulse Resp BP Sys/Valentino Pulse Ox Last 24 Hr 98.6 F-98.8 F 93-127 20-20 119-141/65-77 90-95 PHYSICAL EXAM GENERAL: The patient is awake, alert, and fully oriented, in no acute distress. HEAD: Normal with no signs of trauma. EYES: PERRL, extraocular movements intact, sclera anicteric, conjunctiva clear. ENT: Ears normal, nares patent, oropharynx clear without exudates, moist mucous membranes. NECK: Trachea midline, full range of motion, supple. LUNGS: Breath sounds equal, clear to auscultation bilaterally, no wheezes, no crackles, no accessory muscle use. HEART: Regular rate and rhythm, S1, S2 without murmur, rub or gallop. ABDOMEN: Soft, nontender, nondistended, normoactive bowel sounds, no guarding, no rebound, no hepatosplenomegaly, no masses. EXTREMITIES: 2+ pulses, warm, well-perfused, no edema. NEUROLOGICAL: Cranial nerves II through XII grossly intact. Normal speech, gait not observed. PSYCH: Normal mood, normal affect. SKIN: Warm, dry, normal turgor, no rashes or lesions noted. LABS CBCD WBC 8.7 K/mm3 (4.0-10.0) 06/23/17 09:35 RBC 2.53 M/mm3 (3.60-5.2) L 06/23/17 09:35 Hgb 8.5 GM/dL (10.7-15.3) L D 06/23/17 09:35 Hct 25.2 % (32.4-45.2) L 06/23/17 09:35 MCV 99.5 fl (80-96) H 06/23/17 09:35 MCHC 33.8 g/dl (32.0-36.0) 06/23/17 09:35 RDW 17.2 % (11.6-15.6) H 06/23/17 09:35 Plt Count 101 K/MM3 (134-434) L 06/23/17 09:35 MPV 8.7 fl (7.5-11.1) 06/23/17 09:35 CMP Sodium 140 mmol/L (136-145) 06/23/17 09:35 Potassium 3.8 mmol/L (3.5-5.1) 06/23/17 09:35 Chloride 105 mmol/L (98-107) 06/23/17 09:35 Carbon Dioxide 29 mmol/L (21-32) 06/23/17 09:35 Anion Gap 6 (8-16) L 06/23/17 09:35 BUN 13 mg/dL (7-18) 06/23/17 09:35 Creatinine 0.4 mg/dL (0.55-1.02) L 06/23/17 09:35 Creat Clearance w eGFR > 60 (>60) 06/23/17 09:35 Calcium 7.7 mg/dL (8.5-10.1) L 06/23/17 09:35 Total Bilirubin 0.3 mg/dL (0.2-1.0) D 06/23/17 09:35 AST 20 U/L (15-37) 06/23/17 09:35 ALT 61 U/L (12-78) 06/23/17 09:35 Alkaline Phosphatase 116 U/L (45-117) 06/23/17 09:35 Total Protein 5.9 g/dl (6.4-8.2) L 06/23/17 09:35 Albumin 2.5 g/dl (3.4-5.0) L 06/23/17 09:35 HOSPITAL COURSE: Date of Admission:06/15/17 Date of Discharge: 06/25/17 Patient is a 77 year old female with PMH significant for HTN, autoimmune thyroiiditis, osteoarthritis, rheumatoid arthritis, Lorenza Danlos syndrome, and vocal cord paralysis. Now diagnosed with lung cancer. Lung cancer s/p bronchoscopy, right thoracoscopy, pneumolysis, right upper lobe wedge resection on 06/15/17 --pathology report 06/15: moderately differentiated non-keratinizing squamous cell carcinoma, 1.4cm in greatest dimension, limited to the lung --per oncology Dr. Viera, this is Stage IA squamous cell lung cancer, adjuvant chemotherapy not indicated; will need surveillance CT scans --outpatient followup with Dr. Viera Citrobacter freundii UTI --fever to 101.8 on 06/22, has been afebrile 48 hours --was treated with ceftriazone x 3 days but culture resistant; switched to levofloxacin on 06/23; discharge on PO levofloxacin to complete 10 days of treatment Hypertension --continued lisinopril and HCTZ Rheumatoid arthritis --continued methotraxtate Hypothyroidism --continued levothyroxine Vocal cord paralysis --Seen by speech and swallow, on dysphagia diet --ENT consulted, but patient well known to them and to follow outpatient as per ENT --treated with diflucan for mouth ulcers Minutes to complete discharge: 35 Discharge Summary Reason For Visit: LUNG NODULE Current Active Problems Autoimmune thyroiditis (Acute) Lorenza-Danlos syndrome (Acute) Fever (Acute) Hypertension (Acute) Lung cancer (Acute) Lung nodule (Acute) Osteoarthritis (Acute) Rheumatoid arthritis (Acute) UTI (urinary tract infection) (Acute) - Instructions Diet, Activity, Other Instructions: Three prescriptions have been sent to your pharmacy: 1. Levofloxacin - this is an antibiotic to treat your urinary tract infection. Take this medication as directed and be sure to finish all the medication. 2. Diflucan - this is an antibiotic to treat your mouth sores. Take this medication as directed and be sure to finish all the medication. 3. Cepacol lozenges - take these when needed for relief of pain from your mouth sores. It is important you follow up with Dr. Aylin Jimenez in one month to follow up on your diagnosis of lung cancer. Call her office to make an appointment. Her contact information is enclosed in this discharge packet. Return to the emergency department for any new or worsening symptoms. Referrals: Aylin Leal MD [Staff Physician] - 1 Month - Home Medications Comprehensive Discharge Medication List: Ambulatory Orders Folic Acid 1 mg PO DAILY 04/03/15 Levothyroxine [Synthroid -] 0.125 mcg PO DAILY 04/03/15 Methotrexate Sodium [Methotrexate] 22.5 mg PO WEEKLY 04/03/15 Naproxen Sodium [Naproxen Sodium ER] 500 mg PO PRN PRN 04/03/15 Sulfasalazine [Azulfidine] 1,000 mg PO BID 04/03/15 Amitriptyline HCl 25 mg PO PRN PRN 06/11/17 Lisinopril/Hydrochlorothiazide [Lisinopril-Hctz 20-12.5 mg Tab] 1 each PO DAILY 06/11/17 Multivitamin [One Daily] 1 each PO DAILY 06/11/17 This patient is new to me today: No Emergency Visit: Yes ED Registration Date: 06/15/17 Care time: The patient presented to the Emergency Department on the above date and was hospitalized for further evaluation of their emergent condition. Critical Care patient: No - Discharge Referral Referred to [facility] No
[2017-06-24] MEDS: FLUCONAZOLE 40 MG/ML SUSPENSION PO SCH (10:36)
--- NOTE | 2017-06-24 11:23 | PN ---
Progress Note (short form) - Note Progress Note: PULMONARY Doing well, still some dyspnea with exertion. No significant cough or wheezing. Last Vital Signs Temp Pulse Resp BP Pulse Ox 98.3 F 105 H 20 151/64 95 06/24/17 10:00 06/24/17 10:00 06/24/17 10:00 06/24/17 10:00 06/24/17 01:00 Gen: NAD at rest Heart: RRR Lung: right base rales Abd: soft, nontender Ext: no edema CBC, BMP 06/23/17 09:35 06/23/17 09:35 Active Medications Acetaminophen (Tylenol -) 650 mg PO Q6H PRN PRN Reason: PAIN LEVEL 7 - 10 Last Admin: 06/23/17 21:38 Dose: 650 mg Albuterol/Ipratropium (Duoneb -) 1 amp NEB Q4H PRN PRN Reason: SHORTNESS OF BREATH Last Admin: 06/23/17 21:15 Dose: 1 amp Amitriptyline HCl (Elavil -) 25 mg PO [facility] Last Admin: 06/23/17 21:37 Dose: 25 mg Benzocaine/Menthol (Cepacol Lozenge -) 1 each MM PRN PRN PRN Reason: SORE THROAT Last Admin: 06/21/17 06:25 Dose: 1 each Docusate Sodium (Colace -) 100 mg PO BID [facility] Last Admin: 06/24/17 09:27 Dose: 100 mg Fluconazole (Diflucan 40mg/Ml Suspension -) 100 mg PO DAILY [facility] Stop: 07/07/17 10:00 Last Admin: 06/24/17 10:36 Dose: 100 mg Folic Acid (Folic Acid -) 1 mg PO DAILY [facility] Last Admin: 06/24/17 09:29 Dose: 1 mg Heparin Sodium (Porcine) (Heparin -) 5,000 unit SQ BID [facility] Last Admin: 06/24/17 09:27 Dose: 5,000 unit Hydrochlorothiazide (Hctz -) 12.5 mg PO DAILY [facility] Last Admin: 06/24/17 09:28 Dose: 12.5 mg Levofloxacin (Levaquin 250 Mg Premixed Ivpb -) 250 mg in 50 mls @ 50 mls/hr IVPB DAILY [facility] Last Admin: 06/24/17 09:27 Dose: 50 mls/hr Levothyroxine Sodium (Synthroid -) 125 mcg PO DAILY@0700 [facility] Last Admin: 06/24/17 06:04 Dose: 125 mcg Lisinopril (Prinivil) 20 mg PO DAILY [facility] Last Admin: 06/24/17 09:28 Dose: 20 mg Methotrexate (Mexate -) 22.5 mg PO Tu@1000 [facility] Last Admin: 06/23/17 10:36 Dose: 22.5 mg Multivitamins/Minerals/Vitamin C (Tab-A-Vit -) 1 tab PO DAILY [facility] Last Admin: 06/24/17 09:27 Dose: 1 tab Pantoprazole Sodium (Protonix -) 40 mg PO DAILY [facility] Last Admin: 06/24/17 09:28 Dose: 40 mg Senna (Senna -) 2 tab PO HS PRN PRN Reason: CONSTIPATION Last Admin: 06/24/17 09:27 Dose: 2 tab A/P Squamous Cell Ca s/p R VATS/pneumolysis/wedge resection/mediastinal lymph node sampling Lorenza Danlos Syndrome h/o Autoimmune Thyroiditis Rheumatoid Arthritis HTN UTI - continue antibiotics - incentive spirometry - inhaled bronchodilators - O2 as needed - PO as tolerated - OOB to chair/PT - DVT prophylaxis
[2017-06-24] MEDS: ALBUTEROL SO4 2.5/IPRATROPIUM 0.5 INH SOL 3 ML VIAL.NEB. NEB PRN ×2 (13:45→20:13)
[2017-06-24] MEDS: AMITRIPTYLINE HCL 25 MG TABLET (FP) PO SCH (21:49)
[2017-06-24] MEDS: ACETAMINOPHEN 325 MG TABLET (FP) PO PRN (21:49)
[2017-06-25] MEDS ORDERED: PT OWN MED DRAWER 7, Y5N ONE ×2 (05:25→09:14)
[2017-06-25] MEDS: ACETAMINOPHEN 325 MG TABLET (FP) PO PRN (06:00)
[2017-06-25] MEDS: LEVOTHYROXINE NA 125 MCG TABLET (FP) PO SCH (06:01)
[2017-06-25 09:31] VITALS: BP 159/71; PULSE 100; TEMP 98.2
[2017-06-25] MEDS: MULTIVITAMINS (DAILY MVI) TABLET (FP) PO SCH (09:32)
[2017-06-25] MEDS: HEPARIN NA (PORCINE) 5,000 UNITS/ML 1ML VIAL SQ SCH (09:32)
[2017-06-25] MEDS: LISINOPRIL 20 MG TABLET (FP) PO SCH (09:32)
[2017-06-25] MEDS: FOLIC ACID 1 MG TABLET (FP) PO SCH (09:32)
[2017-06-25] MEDS: PANTOPRAZOLE 40 MG TABLET (FP) PO SCH (09:32)
[2017-06-25] MEDS: DOCUSATE SODIUM 100 MG CAPSULE (FP) PO SCH (09:32)
[2017-06-25] MEDS: HYDROCHLOROTHIAZIDE 12.5 MG CAPSULE (FP) PO SCH (09:32)
[2017-06-25] MEDS: FLUCONAZOLE 40 MG/ML SUSPENSION PO SCH (09:33)
--- NOTE | 2017-06-25 10:33 | PN ---
Progress Note (short form) - Note Progress Note: PULMONARY Doing well, no further fevers. No significant cough or wheezing. Last Vital Signs Temp Pulse Resp BP Pulse Ox 98.2 F 100 H 18 159/71 94 L 06/25/17 09:30 06/25/17 09:30 06/25/17 09:30 06/25/17 09:30 06/25/17 01:00 Gen: NAD at rest Heart: RRR Lung: right base rales Abd: soft, nontender Ext: no edema CBC, BMP 06/23/17 09:35 06/23/17 09:35 Active Medications Acetaminophen (Tylenol -) 650 mg PO Q6H PRN PRN Reason: PAIN LEVEL 7 - 10 Last Admin: 06/25/17 06:00 Dose: 650 mg Albuterol/Ipratropium (Duoneb -) 1 amp NEB Q4H PRN PRN Reason: SHORTNESS OF BREATH Last Admin: 06/24/17 20:13 Dose: 1 amp Amitriptyline HCl (Elavil -) 25 mg PO [facility] Last Admin: 06/24/17 21:49 Dose: 25 mg Benzocaine/Menthol (Cepacol Lozenge -) 1 each MM PRN PRN PRN Reason: SORE THROAT Last Admin: 06/21/17 06:25 Dose: 1 each Docusate Sodium (Colace -) 100 mg PO BID [facility] Last Admin: 06/25/17 09:32 Dose: 100 mg Fluconazole (Diflucan 40mg/Ml Suspension -) 100 mg PO DAILY [facility] Stop: 07/07/17 10:00 Last Admin: 06/25/17 09:33 Dose: 100 mg Folic Acid (Folic Acid -) 1 mg PO DAILY [facility] Last Admin: 06/25/17 09:32 Dose: 1 mg Heparin Sodium (Porcine) (Heparin -) 5,000 unit SQ BID [facility] Last Admin: 06/25/17 09:32 Dose: 5,000 unit Hydrochlorothiazide (Hctz -) 12.5 mg PO DAILY [facility] Last Admin: 06/25/17 09:32 Dose: 12.5 mg Levofloxacin (Levaquin 250 Mg Premixed Ivpb -) 250 mg in 50 mls @ 50 mls/hr IVPB DAILY [facility] Last Admin: 06/25/17 09:33 Dose: Not Given Levothyroxine Sodium (Synthroid -) 125 mcg PO DAILY@0700 [facility] Last Admin: 06/25/17 06:01 Dose: 125 mcg Lisinopril (Prinivil) 20 mg PO DAILY [facility] Last Admin: 06/25/17 09:32 Dose: 20 mg Methotrexate (Mexate -) 22.5 mg PO Tu@1000 [facility] Last Admin: 06/23/17 10:36 Dose: 22.5 mg Multivitamins/Minerals/Vitamin C (Tab-A-Vit -) 1 tab PO DAILY [facility] Last Admin: 06/25/17 09:32 Dose: 1 tab Pantoprazole Sodium (Protonix -) 40 mg PO DAILY [facility] Last Admin: 06/25/17 09:32 Dose: 40 mg Senna (Senna -) 2 tab PO HS PRN PRN Reason: CONSTIPATION Last Admin: 06/24/17 09:27 Dose: 2 tab A/P Squamous Cell Ca s/p R VATS/pneumolysis/wedge resection/mediastinal lymph node sampling Lorenza Danlos Syndrome h/o Autoimmune Thyroiditis Rheumatoid Arthritis HTN UTI - continue antibiotics - incentive spirometry - inhaled bronchodilators - O2 as needed - PO as tolerated - OOB to chair/PT - DVT prophylaxis - outpt f/u - d/c planning
== END 2017-06-25 14:05 | disposition home health service (06) | DRG 164 ==
LOC: JSAMEDAYSX 07:00 → EDSTATUS 07:30 → JICU 15:10 → J2W 06-17 21:04 → J7W 06-18 17:33
PROVIDERS: ADMIT Surgery; ATTEND Nurse Practitioner Acute Care
PROC: 07B73ZX Excision of Thorax Lymphatic, Percutaneous Approach, Diagnostic (ICD-10-PCS; 2017-06-15)
PROC: 0B9 Respiratory System, Drainage (ICD-10-PCS; 2017-06-15)
PROC: 0BNF4ZZ Release Right Lower Lung Lobe, Percutaneous Endoscopic Approach (ICD-10-PCS; 2017-06-15)
PROC: 0BBC4ZX Excision of Right Upper Lung Lobe, Percutaneous Endoscopic Approach, Diagnostic (ICD-10-PCS; principal; 2017-06-15 07:30)
PROC: 0BNC4ZZ Release Right Upper Lung Lobe, Percutaneous Endoscopic Approach (ICD-10-PCS; 2017-06-15 07:30)
DX: C34.11 Malignant neoplasm of upper lobe, right bronchus or lung (principal); Q79.6 Ehlers-Danlos syndromes; N39.0 Urinary tract infection, site not specified; J98.11 Atelectasis; I10 Essential (primary) hypertension; E06.3 Autoimmune thyroiditis; J38.01 Paralysis of vocal cords and larynx, unilateral; M85.80 Other specified disorders of bone density and structure, unspecified site; M06.9 Rheumatoid arthritis, unspecified; M19.90 Unspecified osteoarthritis, unspecified site; Z87.891 Personal history of nicotine dependence; E03.9 Hypothyroidism, unspecified; R91.1 Solitary pulmonary nodule; R13.13 Dysphagia, pharyngeal phase; B96.89 Other specified bacterial agents as the cause of diseases classified elsewhere; R32 Unspecified urinary incontinence
CPT/HCPCS: 36415; 71045-TC-FY; 74230-TC-FY; 80048; 80053; 81003; 81015; 83735; 84100; 85025; 85027; 85610; 85730; 86850; 86900; 86901; 86922; 87040; 87070; 87075; 87086; 87102; 87116; 87186; 87205; 87206; 87210; 88305-TC; 88307-TC; 88331-TC; 88341-TC; 92611-GN; 93005; 93010; 94640; 94760; 94761; 97116-GP; 97161-GP; J0131; J1644; J8610